=== PATIENT | female | born 1995 | race Caucasian/White ===

== ENCOUNTER → 2017-11-10 | Outpatient (CLI) | payer OTHER ==
[2017-11-10 19:02] LABS: RUBELLA IgG QUALITATIVE IMMUNE (IMMUNE)
[2017-11-10 19:03] LABS: HBsAg Prenatal NEGATIVE (NEGATIVE)
[2017-11-10 19:21] LABS: BASO # 0.1 10^3/uL (0.0-0.2); BASO % 0.8 % (0.0-1.0); EOS # 0.1 10^3/uL (0.0-0.50); EOS % 1.6 % (0.0-3.0); HEMATOCRIT 37.1 % (36.0-47.0); HEMOGLOBIN 12.2 g/dl (12.0-15.5); IMMATURE GRANULOCYTE % 0.3 % (0-3.0); LYMPH # 2.7 10^3/uL (1.5-6.5); LYMPH % 34.8 % (24.0-44.0); MEAN CORPUSCULAR HEMOGLOBIN 29.5 pg (27.0-33.0); MEAN CORPUSCULAR HGB CONC 32.9 g/dl (32.0-36.5); MEAN CORPUSCULAR VOLUME 89.6 fl (80.0-96.0); MONO # 0.6 10^3/uL (0.0-0.8); MONO % 7.3 % (0.0-5.0); NEUTROPHILS # 4.3 10^3/uL (1.8-7.7); NEUTROPHILS % 55.2 % (36.0-66.0); PLATELET COUNT, AUTOMATED 254 10^3/uL (150-450); RED BLOOD COUNT 4.14 10^6/uL (4.00-5.40); RED CELL DISTRIBUTION WIDTH 13.6 % (11.5-14.5); WHITE BLOOD COUNT 7.7 10^3/uL (4.0-10.0)
[2017-11-10 19:31] LABS: HIV 1&2 SCREEN CENTAUR NEGATIVE (NEGATIVE)
[2017-11-10 19:31] LABS: HEPATITIS C VIRUS ABY INDEX 0.1 INDEX (<0.8)
[2017-11-10 22:01] LABS: CHLAMYDIA DNA AMPLIFICATION NEGATIVE (NEGATIVE); GC DNA AMPLIFICATION NEGATIVE (NEGATIVE)
== END ==
LOC: M SMT 10:59
DX: Z36.89 Encounter for other specified antenatal screening (principal); Z3A.09 9 weeks gestation of pregnancy
CPT/HCPCS: 86762

== ENCOUNTER → 2017-11-20 | Outpatient (CLI) | payer MEDICAID | LOC: M OUTALCOH 08:07 | DX: F12.20 Cannabis dependence, uncomplicated (principal) ==

== ENCOUNTER 2017-12-12 16:00 | Outpatient (RCR) | payer MEDICAID | END 2018-01-07 | LOC: M OUTALCOH 12-15 13:00 | DX: F12.20 Cannabis dependence, uncomplicated (principal); F13.20 Sedative, hypnotic or anxiolytic dependence, uncomplicated; F17.200 Nicotine dependence, unspecified, uncomplicated ==

== ENCOUNTER → 2018-01-02 | Outpatient (CLI) | payer MEDICAID | LOC: M SMT 09:00 | DX: Z36.89 Encounter for other specified antenatal screening (principal); Z3A.00 Weeks of gestation of pregnancy not specified | CPT/HCPCS: 36415 ==

== ENCOUNTER 2018-01-09 16:00 | Outpatient (RCR) | payer MEDICAID | END 2018-02-07 | LOC: M OUTALCOH 01-16 16:00 | DX: F12.20 Cannabis dependence, uncomplicated (principal); F13.20 Sedative, hypnotic or anxiolytic dependence, uncomplicated; F17.200 Nicotine dependence, unspecified, uncomplicated ==

== ENCOUNTER → 2018-01-16 | Outpatient (CLI) | payer OTHER | LOC: M RAD 09:56 | DX: Z34.82 Encounter for supervision of other normal pregnancy, second trimester (principal); Z36.89 Encounter for other specified antenatal screening; Z3A.18 18 weeks gestation of pregnancy | CPT/HCPCS: 76811 ==

== ENCOUNTER → 2018-01-31 | Outpatient (CLI) | payer OTHER | LOC: M RAD 11:10 | DX: Z36.2 Encounter for other antenatal screening follow-up (principal); Z3A.20 20 weeks gestation of pregnancy; O43.122 Velamentous insertion of umbilical cord, second trimester | CPT/HCPCS: 76816 ==

== ENCOUNTER → 2018-03-20 | Outpatient (CLI) | payer MEDICAID, OTHER | LOC: M RAD 10:03 | DX: O99.332 Smoking (tobacco) complicating pregnancy, second trimester (principal); Z3A.27 27 weeks gestation of pregnancy | CPT/HCPCS: 76816 ==

== ENCOUNTER → 2018-03-28 | Outpatient (REF) | payer OTHER ==
[~2018-03-28] MED LIST: COLA100C5 PO; IBUP-1114 PO; MAPA500T17 PO; PRENTAB9 PO
== END ==
LOC: M LAB REF 13:41
PROVIDERS: ATTEND Advanced Practice Midwife
DX: O99.332 Smoking (tobacco) complicating pregnancy, second trimester (principal)

== ENCOUNTER → 2018-04-12 | Outpatient (CLI) | payer OTHER ==
[~2018-04-12] MED LIST changes: -MAPA500T17 PO; +MAPA500T2 PO
[2018-04-12 14:05] LABS: HEMATOCRIT 34.1 % (36.0-47.0); HEMOGLOBIN 11.1 g/dl (12.0-15.5); MEAN CORPUSCULAR HEMOGLOBIN 29.3 pg (27.0-33.0); MEAN CORPUSCULAR HGB CONC 32.6 g/dl (32.0-36.5); PLATELET COUNT, AUTOMATED 271 10^3/uL (150-450); RED BLOOD COUNT 3.79 10^6/uL (4.00-5.40); WHITE BLOOD COUNT 14.7 10^3/uL (4.0-10.0)
== END ==
LOC: M SMT 09:13
PROVIDERS: ATTEND Advanced Practice Midwife
DX: Z34.82 Encounter for supervision of other normal pregnancy, second trimester (principal); Z36.89 Encounter for other specified antenatal screening

== ENCOUNTER → 2018-04-12 | Outpatient (REF) | payer OTHER | LOC: M LAB REF 14:08 | PROVIDERS: ATTEND Advanced Practice Midwife | DX: Z36.89 Encounter for other specified antenatal screening (principal) ==

== ENCOUNTER → 2018-05-18 | Outpatient (REF) | payer OTHER, MEDICAID | LOC: M LAB REF 12:55 | PROVIDERS: ATTEND Advanced Practice Midwife | DX: O99.333 Smoking (tobacco) complicating pregnancy, third trimester (principal); Z3A.00 Weeks of gestation of pregnancy not specified ==

== ENCOUNTER 2018-06-11 12:23 | Inpatient (IN) | payer OTHER, MEDICAID ==
[~2018-06-11] VITALS: Ht 162.6 cm; Wt 92.4 kg
[2018-06-11] VITALS (11 sets, daily range): BP systolic 111–127; BP diastolic 56–70
[2018-06-11] MEDS ORDERED: BUPR15TA PO (12:45)
[2018-06-11 16:22] LABS: HEMATOCRIT 39.8 % (36.0-47.0); HEMOGLOBIN 13.1 g/dl (12.0-15.5); MEAN CORPUSCULAR HEMOGLOBIN 28.4 pg (27.0-33.0); MEAN CORPUSCULAR HGB CONC 32.9 g/dl (32.0-36.5); MEAN CORPUSCULAR VOLUME 86.3 fl (80.0-96.0); PLATELET COUNT, AUTOMATED 183 10^3/uL (150-450); RED BLOOD COUNT 4.61 10^6/uL (4.00-5.40); WHITE BLOOD COUNT 11.4 10^3/uL (4.0-10.0)
[2018-06-11] MEDS: buPROPion **SR TABLET** (ZYBAN) 150MG PO SCH (17:22)
[2018-06-11] MEDS ORDERED: LR 1,000 ML IV SCH (18:23)
--- NOTE | 2018-06-11 18:23 | HPEPDOC ---
Obstetrical History & Physical General Date of Admission Jun 11, 2018 at 15:45 Primary Care Physician: RAOUL TESFAYE CNM History of Present Illness Patient is a 23-year-old female who is a at 39.3 weeks gestation with an RADHA of 06/15/18 based off of her LMP and consistent with her 1st trimester ult rasound. She initiated care in her first trimester. her has been complicated by smoking and use of illicit drugs during . She is currently living at [facility]. She presents to L&D via ambulance with complaints of contractions. She reports active movement. She denies leaking of fluid or vaginal bleeding. Chief Complaint: Contractions, term, Active Labor Information Provided By: Patient Age: 23 : 2 Term: 1 Pre-term: 0 Abortions: 0 Livin Care Care: Good Care Dating Final EDC: Jun 15, 2018 Final EDC by: LMP LMP: Sep 08, 2017 EGA at Admission: 39.3 Antepartum Course Height (inches): 64 Pre- weight (lbs.): 197 Admission Weight (lbs.): 211 Change in Weight (lbs.): 14 Past Medical History Past Obstetrical History : Past Obstetrical History: Primgravida Gestation: 41 Type of Delivery: Spontaneous Vaginal Del. (March 2016) Sex of : Male (weighting 6 lbs 8 oz.) Complications: No Family History Significant Family History: Diabetes, Hypertension Social History Social history Patient currently living in [facility] for drug abuse. She has a history of methamphetamine abuse. She does not have custody of her youngest child. 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 Marital Status: Single Family situation: Spouse/partner home Psychosocial History: Depression (taking wellbutrin BID) * Smoker: current smoker Alcohol: Denies Drugs: prescription drugs (suboxone off the street) Abuse Violence Screening Have you been hit/kicked/slapp: No Have you been sexually assault: No Imunizations Tdap status: current Allergies Coded Allergies: Procaine (Verified Allergy, Intermediate, HIVES, 07/11/12) Soap (Unverified Allergy, Mild, 07/11/12) Lidocaine (Verified Allergy, Unknown, rash, 03/29/16) Medications Scheduled Bupropion HCl (Wellbutrin Sr) 150 Mg Tabcr, 150 MG PO BID Multivitamins/ ( 27-0.8 mg) 1 Tab Tab, 1 TAB PO DAILY Physical Examination Physical Examination GENERAL: Alert and oriented times three. BREAST: . ABDOMEN: Gravid and non-tender to touch. FETUS: Is vertex (VTX) by sterile vaginal examination (SVE), fetus is vertex (VTX) by Harry. HEART RATE: Regular rate and rhythm. LUNGS: Clear to auscultation (CTA). EXTREMITIES: No edema. No clonus. Deep tendon reflexes (DTRs) + 2. Vital Signs/I&O Vital Signs Date Time Temp Pulse Resp B/P (MAP) Pulse Ox O2 Delivery O2 Flow Rate FiO2 06/11/18 14:00 98.3 86 117/70 (86) 06/11/18 12:59 18 Laboratory Data 24H LABS Laboratory Tests 2 06/11/18 15:52: Serology Scanned Report Hepatitis B Testing 06/11/18 16:14: Nucleated Red Blood Cells % (auto) 0.0, Syphilis Serology NONREACTIVE CBC/BMP Laboratory Tests 06/11/18 16:14 Red Blood Count 4.61, Mean Corpuscular Volume 86.3, Mean Corpuscular Hemoglobin 28.4, Mean Corpuscular Hemoglobin Concent 32.9, Red Cell Distribution Width 13.7 Urine Culture: No Growth Pertinent Laboratoy Data Blood Type: O+ RBC Antibody Screen: Negative HIV: Negative Hepatitis B: Negative Hepatitis C: Negative Rapid Plasma Reagin: Nonreactive Rubella: Immune Chlamydia/Gonorrhea: Negative Group B Streptococcus: Negative Glucose Tolerance Test: 106 Anatomy Ultrasound Ultrasound Date: Mar 20, 2018 Placenta Location: Anterior Normal Anatomy: Yes (echogenic foci) Placenta Previa: No Estimated Weight (grams): 1040 Vaginal Examination Dilation: 4 cm Effacement: 80% Station: -2 Cervical Consistency: Soft Cervical Position: Anterior Presentation: Cephalic presentation Position: Vertex (occiput) Assessment Heart Rate (FHR): 130 Variability: Moderate Accelerations: Positive Decelerations: None Tocometer Contractions: Yes Frequency: other (2-6 minutes) Multi-drug resistant Organism: No history of MDRO Assessment/Plan Assessment IUP at 39.3 weeks gestation active labor GBS negative Category I FHR tracing Plan Admit to L&D. OOB ad darryn. Diet: regular. Group B Streptococcus (GBS) negative. Labs and intravenous (IV) per unit protocol. Anticipate cervical change and . Patient desires IV pain medication as she is unable to have an epidural due to allergy to lidocaine. RAOUL TESFAYE CNM Jun 11, 2018 18:23
[2018-06-11] MEDS ORDERED: OXYTOCIN DRIP 30 UNITS in APPROPRIATE DILUENT 1 EA IV SCH (18:30)
[2018-06-11] MEDS ORDERED: BUTORPHANOL 2 MG/ML INJ (J0595) IV ONE (20:45)
[2018-06-11] MEDS ORDERED: PROMETHAZINE INJ 25 MG/ML VIAL (J2550) IV ONE (20:45)
--- NOTE | 2018-06-11 21:36 | IPNPDOC ---
Obstetrical Progress Note Date of Service Jun 11, 2018 Subjective Patient reports she desires to have IV pain medication. Objective Vital Signs Date Time Temp Pulse Resp B/P (MAP) Pulse Ox O2 Delivery O2 Flow Rate FiO2 06/11/18 20:51 20 06/11/18 14:00 98.3 86 117/70 (86) Assessment Heart Rate (FHR): 135 Variability: Moderate Accelerations: Positive Decelerations: None Heart Rate Tracing: Category I Tocometer Contractions: Yes Frequency: regular Sterile Vaginal Examination Dilation: 4 cm Effacement (%): 80% Station: -2 Cervical Consistency: Soft Cervical Position: Anterior Postion/Presentation: Cephalic presentation Assessment and Plan Status: Reassuring Group B Streptococcus: Negative Anticipate: Vaginal Delivery Additional Comments AROM to a moderate amount of meconium stained fluid. Pitocin at 4 mu/min currently. RAOUL TESFAYE CNM Jun 11, 2018 21:36
[2018-06-11] MEDS ORDERED: MORPHINE 10 MG/ML 1ML VIAL (J2270) IM ONE (21:45)
[2018-06-11] MEDS ORDERED: MORPHINE 10 MG/ML 1ML VIAL (J2270) IV ONE (22:00)
[2018-06-11] MEDS ORDERED: MORPHINE 10 MG/ML 1ML VIAL (J2270) SC ONE (23:15)
--- NOTE | 2018-06-11 23:57 | IPNPDOC ---
Obstetrical Progress Note Date of Service Jun 11, 2018 Subjective Patient requesting more IV pain medication. Objective Vital Signs Date Time Temp Pulse Resp B/P (MAP) Pulse Ox O2 Delivery O2 Flow Rate FiO2 06/11/18 21:55 20 06/11/18 14:00 98.3 86 117/70 (86) Assessment Heart Rate (FHR): 115 Variability: Minimal to moderate Accelerations: Positive Decelerations: None Heart Rate Tracing: Category I Tocometer Contractions: Yes Frequency: regular Sterile Vaginal Examination Dilation: 5 cm (5-6 cm) Effacement (%): 90% Cervical Consistency: Soft Cervical Position: Anterior Postion/Presentation: Cephalic presentation Assessment and Plan Status: Reassuring Group B Streptococcus: Negative Anticipate: Vaginal Delivery Additional Comments Patient is unable to have an epidural due to anaphylaxis to lidocaine. She has received Stadol 2mg with Phenergan 12.5 mg via IV that she reports did nothing for her pain. She received 5 mg of IV morphine that has helped her pain slightly but patient isn't tolerating labor well. She has a history over the last year of using illicit drugs with the main drug of choice being Suboxone, which she bought off the street. Her IV Pitocin was decreased to 2 mu/min, down from 6 mu/min. A order was placed for SQ morphine. RAOUL TESFAYE CNM Jun 11, 2018 23:57
[2018-06-12] VITALS (26 sets, daily range): BP systolic 98–154; BP diastolic 54–82
[2018-06-12] MEDS ORDERED: MORPHINE 10 MG/ML 1ML VIAL (J2270) IV PRN (00:45)
--- NOTE | 2018-06-12 02:41 | IPNPDOC ---
Obstetrical Progress Note Date of Service Jun 12, 2018 Subjective Patient reports she is too tired and in too much pain to continue. She states the IV pain medication is not working for her. Her significant other is very upset and requesting that we do something more for her. Objective Vital Signs Date Time Temp Pulse Resp B/P (MAP) Pulse Ox O2 Delivery O2 Flow Rate FiO2 06/12/18 00:59 18 06/11/18 14:00 98.3 86 117/70 (86) Assessment Heart Rate (FHR): 120 Variability: Moderate Accelerations: Positive Decelerations: None Heart Rate Tracing: Category I Tocometer Contractions: Yes Frequency: regular Sterile Vaginal Examination Dilation: 5 cm Effacement (%): 70% Station: -2 Cervical Consistency: Soft Cervical Position: Anterior Postion/Presentation: Cephalic presentation Assessment and Plan Status: Reassuring Group B Streptococcus: Negative Additional Comments Options were reviewed with patient and significant other. She requests if she is unable to get an epidural or something more so she can sleep she want a section. Dr. Camacho called and notified. Reviewed patient's case with him. Reviewed that she was seen by anesthesia a few years ago with her last and was told she was not a candidate for an epidural. She did not receive an epidural with her last due to this. Reviewed that patient is not tolerating labor and desires to know her options. He will be come to access the patient. Significant other and patient kept informed on progress for pain management. RAOUL TESFAYE CNM Jun 12, 2018 02:41
[2018-06-12] MEDS ORDERED: FENTANYL 2MCG/ML ROPIVACAINE 0.2% IN 0.9% NACL 100ML IVBAG As Ordered ONE (02:42)
[2018-06-12] MEDS ORDERED: EPIDURAL COMMENT XX SCH (04:00)
[2018-06-12] MEDS ORDERED: diphenhydrAMINE INJ 50MG/ML VIAL (J1200) IV PRN (04:00)
[2018-06-12] MEDS ORDERED: ONDANSETRON 4MG/2ML VIAL (J2405) IV PRN (04:00)
[2018-06-12] MEDS ORDERED: EPIDURAL/PCA KEYS XX PRN (04:00)
[2018-06-12] MEDS ORDERED: FENTANYL/ROPIVACAINE/NACL BAG 100 ML EPIDURAL SCH (04:00)
[2018-06-12] MEDS ORDERED: REFRIGERATOR IV KEYS XX PRN (04:00)
[2018-06-12] MEDS ORDERED: ePHEDrine SULFATE 25 MG/5 ML(5MG/ML) SYRINGE IV PRN (04:00)
[2018-06-12] MEDS ORDERED: LACTATED RINGER'S 1000 ML IV PRN (04:00)
[2018-06-12] MEDS ORDERED: NALOXONE INJ 0.4 MG/1 ML VIAL (J2310) IV PRN (04:00)
--- NOTE | 2018-06-12 04:27 | IPNPDOC ---
Obstetrical Progress Note Date of Service Jun 12, [address] Camacho in to see patient and discuss her history. All medical records available at [facility] reviewed. AFter discussion with patient and Dr. Camacho has concluded that the patient is not allergic to lidocaine but she is allergic to Novocaine. Patient desires to proceed with an epidural. Objective Vital Signs Date Time Temp Pulse Resp B/P (MAP) Pulse Ox O2 Delivery O2 Flow Rate FiO2 06/12/18 00:59 18 06/11/18 14:00 98.3 86 117/70 (86) Assessment Heart Rate (FHR): 120 Variability: Moderate Accelerations: Positive Decelerations: None Heart Rate Tracing: Category I Assessment and Plan Additional Comments Dr. Mcmillan was notified of patient's desire for a section if she was unable to get an epidural. Patient able to get an epidural and it was reviewed with Dr. Mcmillan. Patient does not have an allergy to lidocaine as she was successfully able to get an epidural without any side effects. RAOUL TESFAYE CNM Jun 12, 2018 04:27
--- NOTE | 2018-06-12 06:45 | IPNPDOC ---
Obstetrical Progress Note Date of Service Jun 12, 2018 Subjective Patient reports she is feeling rectal pressure. She is comfortable with her epidural. Objective Vital Signs Date Time Temp Pulse Resp B/P (MAP) Pulse Ox O2 Delivery O2 Flow Rate FiO2 06/12/18 00:59 18 06/11/18 14:00 98.3 86 117/70 (86) Assessment Heart Rate (FHR): 125 Variability: Moderate Accelerations: Positive Decelerations: None Heart Rate Tracing: Category I Tocometer Contractions: Yes Frequency: regular, every 2-5 min. Sterile Vaginal Examination Dilation: 8 cm Effacement (%): 90% Station: 0 Cervical Consistency: Soft Cervical Position: Anterior Postion/Presentation: Cephalic presentation Assessment and Plan Weeks & Days 39.4 weeks gestation Status: Reassuring Group B Streptococcus: Negative Anticipate: Vaginal Delivery Additional Comments IV Pitocin has been turned back on and it is a t 6 mu/min. RAOUL TESFAYE CNM Jun 12, 2018 06:45
[2018-06-12] MEDS: buPROPion **SR TABLET** (ZYBAN) 150MG PO SCH ×2 (08:49→17:01)
[2018-06-12] MEDS ORDERED: OXYTOCIN DRIP 30 UNITS in APPROPRIATE DILUENT 1 EA IV SCH (09:03)
[2018-06-12] MEDS ORDERED: DOCUSATE SODIUM 100 MG CAP PO PRN (09:15)
[2018-06-12] MEDS ORDERED: DIBUCAINE 1% OINTMENT 30GM TOP PRN (09:15)
[2018-06-12] MEDS ORDERED: MEASLES,MUMPS,RUBELLA VACCINE INJ (MMR-II) (90707) SC SCH (09:15)
[2018-06-12] MEDS ORDERED: ACETAMINOPHEN 500 MG TAB PO PRN (09:15)
[2018-06-12] MEDS ORDERED: METHYLERGONOVINE MALEATE 0.2 MG TAB PO PRN (09:15)
--- NOTE | 2018-06-12 09:17 | DNPDOC ---
[facility] Delivery Note Delivery Note DATE OF DELIVERY: 06/12/18 at 0722 PREDELIVERY DIAGNOSIS: 39-4/7 weeks' gestation and labor. POST DELIVERY DIAGNOSIS: Delivered. PROCEDURE: Spontaneous vaginal delivery. CUTTING TORCH OPERATOR: Raoul Eugene CNM, GABBY ANESTHESIA: epidural ESTIMATED BLOOD LOSS: 350 mL. FINDINGS: 6 pounds 9 ounces; 2980 grams; female , Score 8/9, nuchal cord times 1 loose. DELIVERY SUMMARY: Patient is a 23-year-old female who is now a at 39.4 weeks gestation. She presented to L&D in active labor. The patient received IV Pitocin to augment her labor. She received an epidural for pain management. The patient progressed to fully dilated at 0717 and pushed to a living female in the RAY position with restitution to ROT at 0722. A loose nuchal cord was noted. The anterior shoulder delivered with ease and the corpus immediately followed. The baby was placed [id number] active and crying with stimulation. The cord was clamped x2 after 3 minutes and cut by the FOB. A 3-vessel cord was noted. The placenta delivered spontaneously and intact at 0729. Uterine hemostasis was achieved via rapid infusion of IV Pitocin and fundal massage. The vagina and perineum were inspected and found to be intact. Mom plans to formula feed her . They are naming her "Beckie." Both mom and baby are in stable condition. RAOUL EUGENE CNM Jun 12, 2018 09:17
[2018-06-12] MEDS: RHOGAM 300 MCG (1500 IU) INJ (J2790) IM SCH ×2 (12:06→12:08)
[2018-06-12] MEDS: IBUPROFEN 800 MG TAB PO PRN (13:27)
--- NOTE | 2018-06-13 06:28 | NUR ---
Day 1 Status post , uncomplicated Subjective Pain is well controlled. Lochia decreasing and minimal. Voiding spontaneously. Tolerating a regular diet. Ambulating without any assistance. Denies any subjective fever/chills/nausea/vomiting/headache/visual changes/shortness of breath/chest pain. Bottle feeding. Objective Vitals: Normotensive, normal heart rate, afebrile, adequate urine output. Heart: regular, rate, and rhythm. no murmurs/gallops/rubs Lungs: clear to auscultation bilaterally, no wheezes/crackles/rales/ronchi Abd: soft, nontender, nondistended, uterine fundus is 2cm below umbilicus and firm Ext: no significant edema, nontender, negative Vianca's bilaterally. Assessment/Plan: day 1. Recovering well. Hemodynamically stable, afebrile, good pain control. -Routine care -Discharge to home later today or tomorrow -Routine infectious, fever, pain, and bleeding precautions reviewed Dr. Gus Mcmillan, Edgar.O., F.A.C.O.G.
[2018-06-13 06:47] VITALS: BP 108/59
[2018-06-13] MEDS: IBUPROFEN 800 MG TAB PO PRN (08:24)
[2018-06-13] MEDS: buPROPion **SR TABLET** (ZYBAN) 150MG PO SCH (08:24)
[2018-06-13] MEDS ORDERED: PRENATAL VITAMINS CHEWABLE TABLET PO SCH (09:00)
[2018-06-13] MEDS ORDERED: MAPA500T2 PO (13:12)
[2018-06-13] MEDS ORDERED: IBUP-1114 PO (13:12)
== END 2018-06-13 14:45 | disposition home or self-care (01) | DRG 560 ==
LOC: M LDO 12:23 → M LDI 15:45 → M OBS 06-12 12:30
PROVIDERS: ADMIT Advanced Practice Midwife; ATTEND Advanced Practice Midwife
PROC: 10E0XZZ Delivery of Products of Conception, External Approach (ICD-10-PCS; principal; 2018-06-12)
DX: O99.334 Smoking (tobacco) complicating childbirth (principal); F17.200 Nicotine dependence, unspecified, uncomplicated; Z3A.39 39 weeks gestation of pregnancy; O69.82X0 Labor and delivery complicated by other cord entanglement, without compression, not applicable or unspecified; F11.90 Opioid use, unspecified, uncomplicated; O99.324 Drug use complicating childbirth

== ENCOUNTER 2019-10-02 10:12 | Emergency (ER) | payer OTHER, MEDICAID ==
[~2019-10-02] VITALS: Ht 162.6 cm; Wt 90.0 kg
[~2019-10-02 10:12] MED LIST changes: +BUPR15TA PO
[2019-10-02] MEDS ORDERED: BUPR8SUB PO (10:19)
[2019-10-02 10:44] LABS: BASO # 0.1 10^3/uL (0.0-0.2); BASO % 0.6 % (0.0-1.0); EOS # 0.1 10^3/uL (0.0-0.5); EOS % 1.2 % (0.0-3.0); HEMATOCRIT 37.3 % (36.0-47.0); HEMOGLOBIN 11.9 g/dl (12.0-15.5); LYMPH # 2.2 10^3/uL (1.5-5.0); LYMPH % 26.4 % (24.0-44.0); MEAN CORPUSCULAR HEMOGLOBIN 27.5 pg (27.0-33.0); MEAN CORPUSCULAR HGB CONC 31.9 g/dl (32.0-36.5); MEAN CORPUSCULAR VOLUME 86.1 fl (80.0-96.0); MONO # 0.6 10^3/uL (0.0-0.8); MONO % 7.4 % (0.0-5.0); NEUTROPHILS # 5.3 10^3/uL (1.5-8.5); NEUTROPHILS % 64.2 % (36.0-66.0); PLATELET COUNT, AUTOMATED 289 10^3/uL (150-450); RED BLOOD COUNT 4.33 10^6/uL (4.00-5.40); WHITE BLOOD COUNT 8.3 10^3/uL (4.0-10.0)
[2019-10-02] MEDS ORDERED: METOCLOPRAMIDE 10 MG TAB PO ONE (10:45)
[2019-10-02 11:06] LABS: ALBUMIN 3.8 GM/DL (3.2-5.2); ALT/SGPT 27 U/L (12-78); BILIRUBIN,DIRECT < 0.1 MG/DL (0.0-0.2); BILIRUBIN,TOTAL 0.3 MG/DL (0.2-1.0); LIPASE 48 U/L (73-393); TOTAL PROTEIN 7.4 GM/DL (6.4-8.2)
[2019-10-02 12:13] LABS: HCG, SERUM QUANTITATIVE 22853 MIU/ML
[2019-10-02 13:17] VITALS: BP 109/61
[2019-10-02] MEDS ORDERED: DICL10TA PO (13:58)
--- NOTE | 2019-10-02 15:15 | REP ---
FIRST TRIMESTER ULTRASOUND: Real-time sonographic evaluation of the gravid uterus is performed. There is a single living intrauterine gestation. The estimated gestational age is 6 weeks 0 days based on a crown-rump length of 4 mm, EDC 05/27/2020. heart rate 117 beats per minute. There is no subchorionic hemorrhage. Cystic structure left ovary measures 1.5 cm and may represent a corpus luteum. There is no torsion of either ovary with duplex Doppler evaluation. Electronically Signed by Lawrence Tom MD 10/02/2019 07:38 P
== END 2019-10-02 14:07 | disposition home or self-care (01) ==
LOC: M ED 10:12
DX: O21.9 Vomiting of pregnancy, unspecified (principal); O99.321 Drug use complicating pregnancy, first trimester; F11.21 Opioid dependence, in remission; O99.330 Smoking (tobacco) complicating pregnancy, unspecified trimester; F17.200 Nicotine dependence, unspecified, uncomplicated; O34.80 Maternal care for other abnormalities of pelvic organs, unspecified trimester; Z3A.01 Less than 8 weeks gestation of pregnancy

== ENCOUNTER → 2019-12-30 | Outpatient (CLI) | payer OTHER ==
[~2019-12-30] MED LIST changes: +BUPR8SUB PO; +DICL10TA PO
--- NOTE | 2020-01-10 10:02 | REP ---
OBSTETRIC SONOGRAPHY HISTORY: Supervision of for anatomy. FINDINGS: Scanning through the gravid uterus demonstrates a single living intrauterine fetus in a cephalic lie. motion is observed and heart rate is recorded at 131 beats per minute. A posterior grade 0 placenta is seen without evidence of previa or abruption. Amniotic fluid is subjectively normal. Closed cervical length is measured transabdominally at 3.4 cm. No extrauterine abnormality is observed. There is a right-sided right choroid plexus cysts measuring 3.9 x 3.5 mm in diameter. No other anatomic abnormality. The following anatomic structures are identified and felt to be unremarkable: cranium, cavum septum pellucidum, falx and cerebral ventricles, cerebellum and cisterna magna, face and profile, face, nose and lips, lungs, four chamber heart with left and right ventricular outflow tract views, diaphragm, left-sided stomach, abdominal wall, cord insertion, kidneys and urinary bladder, spine, upper and lower extremities, three-vessel cord. BIOMETRY CHART: BPD 4.3 cm 19 weeks 0 days Head circumference 16.6 cm 19 weeks 1 day Abdominal circumference 14.6 cm 19 weeks 6 days Femur length 3.4 cm 20 weeks 5 days Humeral length 3.1 cm 20 weeks 2 days HC/AC ratio 1.14 Normal Cephalic index 0.70 Normal Estimated weight 333 grams, 0 pounds 11 ounces. IMPRESSION: Viable single intrauterine gestation at 19 weeks 6 days by todays composite sonographic criteria. Estimated date of delivery (RADHA) by todays sonography 12/17/2020. There is one small right-sided choroid plexus cyst 3.9 mm in greatest diameter. anatomic survey is otherwise complete. [facility]
== END ==
LOC: M RAD 08:40
PROVIDERS: ATTEND Advanced Practice Midwife
DX: Z34.82 Encounter for supervision of other normal pregnancy, second trimester (principal); Z3A.19 19 weeks gestation of pregnancy

== ENCOUNTER → 2020-01-21 | Outpatient (CLI) | payer OTHER ==
[2020-01-21 15:16] LABS: HEMATOCRIT 34.2 % (36.0-47.0); MEAN CORPUSCULAR HEMOGLOBIN 28.3 pg (27.0-33.0); MEAN CORPUSCULAR HGB CONC 32.2 g/dl (32.0-36.5); MEAN CORPUSCULAR VOLUME 87.9 fl (80.0-96.0); PLATELET COUNT, AUTOMATED 242 10^3/uL (150-450); RED BLOOD COUNT 3.89 10^6/uL (4.00-5.40); WHITE BLOOD COUNT 7.2 10^3/uL (4.0-10.0)
[2020-01-21 15:50] LABS: HCG, SERUM QUALITATIVE POSITIVE (NEGATIVE)
[2020-01-21 16:57] LABS: ALBUMIN 3.2 GM/DL (3.2-5.2); ALT/SGPT 16 U/L (12-78); BILIRUBIN,TOTAL 0.3 MG/DL (0.2-1.0); BLOOD UREA NITROGEN 5 MG/DL (7-18); CALCIUM LEVEL 9.2 MG/DL (8.5-10.1); CARBON DIOXIDE LEVEL 24 MEQ/L (21-32); CHLORIDE LEVEL 104 MEQ/L (98-107); CREATININE FOR GFR 0.41 MG/DL (0.55-1.30); GLOMERULAR FILTRATION RATE > 60.0 (>60); GLUCOSE, FASTING 83 MG/DL (70-100); HEPATITIS B SURFACE ANTIGEN NEGATIVE (NEGATIVE); HEPATITIS C VIRUS ABY INDEX 0.1 INDEX (<0.8); HIV 1&2 SCREEN CENTAUR NEGATIVE (NEGATIVE); POTASSIUM SERUM 4.4 MEQ/L (3.5-5.1); SODIUM LEVEL 135 MEQ/L (136-145)
== END ==
LOC: M PLALAB 12:34
PROVIDERS: ATTEND Family Medicine
DX: F11.10 Opioid abuse, uncomplicated (principal)

== ENCOUNTER → 2020-03-09 | Outpatient (REF) | payer OTHER ==
[2020-03-09 15:34] LABS: HEMOGLOBIN 10.1 g/dl (12.0-15.5); MEAN CORPUSCULAR HEMOGLOBIN 30.6 pg (27.0-33.0); MEAN CORPUSCULAR HGB CONC 32.6 g/dl (32.0-36.5); MEAN CORPUSCULAR VOLUME 93.9 fl (80.0-96.0); PLATELET COUNT, AUTOMATED 193 10^3/uL (150-450); WHITE BLOOD COUNT 8.6 10^3/uL (4.0-10.0)
== END ==
LOC: M PLALAB 11:36
PROVIDERS: ATTEND Obstetrics & Gynecology
DX: O99.332 Smoking (tobacco) complicating pregnancy, second trimester (principal); Z3A.00 Weeks of gestation of pregnancy not specified; F17.200 Nicotine dependence, unspecified, uncomplicated

== ENCOUNTER → 2020-04-23 | Outpatient (REF) | payer OTHER | LOC: M SFHCWAGY 13:27 | PROVIDERS: ATTEND Advanced Practice Midwife | DX: O99.333 Smoking (tobacco) complicating pregnancy, third trimester (principal) ==

== ENCOUNTER 2020-05-23 07:09 | Inpatient (IN) | payer OTHER ==
[2020-05-23] VITALS (34 sets, daily range): BP systolic 91–146; BP diastolic 51–100
[~2020-05-23] VITALS: Ht 162.6 cm; Wt 87.3 kg
--- OUTSIDE RECORDS SUMMARY | 2020-05-23 07:13 | CCD ---
Author Author [facility] Organization [facility] Address Unknown Phone Unavailable Care Team Providers Care Cream Separator Operator Name Role Phone Tarsha Enciso Unavailable PROBLEMS Type Condition ICD9-CM Code FWV27-OT Code Onset Dates Condition S tatus SNOMED Code Notes Problem Supervision of other normal Z34.80 Ac tive 496280683 Problem Iron deficiency anemia D50.9 Active 16817915 Problem Supervision of other normal Z34.80 Ac tive 335465243 ALLERGIES No Known Allergies ENCOUNTERS from 1995 to 2020-03-10 Encounter Location Date Provider Diagnosis [facility] [address] [place] [phone] Feb, Tarsha Enciso Iron deficiency anem ia D50.9 IMMUNIZATIONS Vaccine Route Administration Date Status Influenza (6mo & up) Fluzone IM Intramuscular Feb 18, 2020 Pe nding SOCIAL HISTORY Tobacco Use: Social History Observation Description Date Details (start date - stop date) Current Smoker Sex Assigned At : Social History Observation Description Sex Assigned At Unknown Alcohol Screening: Question Answer Notes Did you have a drink containing alcohol in the past year? No Points 0 Interpretation Negative Tobacco Use: Question Answer Notes Are you a: current smoker Are you a: current smoker Patient counseled on the dangers of tobacco use and urged to quit: 01/21/2020 Patient counseled on the dangers of tobacco use and urged to quit: 10/23/2019 How many cigarettes a day do you smoke? 6-10 How many cigarettes a day do you smoke? 6-10 Are you interested in quitting? Ready to quit Are you interested in quitting? Not ready to quit Counseled the patient on smoking effects, education provided 10/23/2019 REASON FOR REFERRAL No Information VITAL SIGNS No information MEDICATIONS Medication SIG (Take, Route, Frequency, Duration) Notes Start Da te End Date Status Methadone HCl 40 MG 45 ml as needed Orally Once a day Active 27-1 MG 1 tablet Orally Once a day Active Ferrous Sulfate 325 (65 Fe) MG 1 tablet Orally Once a day for 30 day(s) Feb, Active Ondansetron 4 MG 1 tablet on the tongue and a llow to dissolve Orally Once a day for 90 days Jan, Active PROCEDURES No Information RESULTS No Results REASON FOR VISIT No Information MEDICAL (GENERAL) HISTORY Type Description Date Medical History History of Opiod use Medical History recovering addict Herion, Meth Surgical History none Hospitalization History Childbirth Goals Section No Information Health Concerns No Information MEDICAL EQUIPMENT No Information MENTAL STATUS No Information FUNCTIONAL STATUS No Information ASSESSMENTS Encounter Date Diagnosis Assessment Notes Treatment Notes Treatm ent Clinical Notes Feb, Iron deficiency anemia (ICD-10 - D50.9) PLAN OF TREATMENT Medication Medication Name Sig Start Date Stop Date Ondansetron 4 MG 1 tablet on the tongue and a llow to dissolve Orally Once a day for 90 days Jan, Ferrous Sulfate 325 (65 Fe) MG 1 tablet Orally Once a day fo r 30 day(s) Feb, Insurance Providers Payer Name Payer Address Payer Phone Insured Name Patient Relati onship to Insured Coverage Start Date Coverage End Date [facility] [employer] [address] [facility] [id number] GRISEL LOZA self
--- OUTSIDE RECORDS SUMMARY | 2020-05-23 07:13 | CCD ---
Author Author [facility] Organization [facility] Address Unknown Phone Unavailable Care Team Providers Care Traffic Controller Cable Name Role Phone Mcmillan, Gus Unavailable PROBLEMS Type Condition ICD9-CM Code CHS30-ML Code Onset Dates Condition S tatus SNOMED Code Notes Problem Supervision of other normal Z34.80 Ac tive 197687914 Problem Iron deficiency anemia D50.9 Active 54092208 Problem Supervision of other normal Z34.80 Ac tive 090993197 ALLERGIES No Known Allergies ENCOUNTERS from 1995 to 2020-04-15 Encounter Location Date Provider Diagnosis [facility] [address] [place] [phone] Mar, Gus Mcmillan Smoking (tobacco) co mplicating , third trimester O99.333 ; 33 weeks gestation of Z3A.33 ; Cigarette smoker F17.210 and Encounter for administration of vaccine Z23 IMMUNIZATIONS Vaccine Route Administration Date Status TDAP 0.5mL (Boostrix) IM Intramuscular Apr 06, 2020 Administe red Influenza (6mo & up) Fluzone IM Intramuscular [...] REASON FOR REFERRAL No Information VITAL SIGNS Weight 185.2 lbs Mar, Weight-kg 84.01 kg Mar, Height 64 in Mar, BMI 31.79 kg/m2 Mar, Blood pressure systolic 120 mm Hg Mar, Blood pressure diastolic 60 mm Hg Mar, MEDICATIONS Medication SIG (Take, Route, Frequency, Duration) Notes Start Da te End Date Status Ferrous Sulfate 325 (65 Fe) MG 1 tablet Orally Once a day for 30 day(s) Feb, Not-Taking Ondansetron 4 MG 1 tablet on the tongue and a llow to dissolve Orally Once a day for 90 days Jan, Active Methadone HCl 10 MG/ML 5.5 mL Orally Once a day Active 27-1 MG 1 tablet Orally Once a day Active PROCEDURES from 1995 to 2020-04-15 Procedure Date Ordered Result Body Site Immunization: Boostrix 0.5mL IM (TDAP) 2020-04-06 N/A RESULTS No Results REASON FOR VISIT 4WK PN MEDICAL (GENERAL) HISTORY Type Description Date Medical History History of Opiod use Medical History recovering addict Herion, Meth Surgical History none Hospitalization History Childbirth Goals Section No Information Health Concerns No Information MEDICAL EQUIPMENT No Information MENTAL STATUS No Information FUNCTIONAL STATUS No Information ASSESSMENTS Encounter Date Diagnosis Assessment Notes Treatment Notes Treatm ent Clinical Notes Mar, Smoking (tobacco) complicati ng , third trimester (ICD-10 - O99.333) Mar, 33 weeks gestation of (ICD-10 - Z3A.33 ) Mar, Cigarette smoker (ICD-10 - F17.210) Mar, Encounter for administration of vaccine (ICD-10 - Z23) PLAN OF TREATMENT Next Appt Details 2 Weeks Reason:follow-up Provider Name:Nadia Eugene, 2020-04-23 11:00:00 AM, [address] [place], [phone], Follow Up:2 Weeksfollow-up Insurance Providers Payer Name Payer Address Payer Phone Insured Name Patient Relati onship to Insured Coverage Start Date Coverage End Date [facility] [employer] [facility] [address] [facility] [id number] [phone] GRISEL LOZA self
--- OUTSIDE RECORDS SUMMARY | 2020-05-23 07:13 | CCD ---
Author Author [facility] Organization [facility] Address Unknown Phone Unavailable Care Team Providers Care Avionics Systems Integration Specialist Name Role Phone Darcy Jimenez Unavailable PROBLEMS Type Condition ICD9-CM Code [id number] Code Onset Dates Condition S tatus SNOMED Code Notes Problem Iron deficiency anemia D50.9 Active 49525400 Problem Supervision of other normal Z34.80 Ac tive 066825505 Problem Dysmenorrhea 625.3 Active 444334627 Problem Supervision of other normal Z34.80 Ac tive 363026868 Problem Supervision of other normal Z34.80 Ac tive 447428387 ALLERGIES Allergen (clinical drug ingredient) Drug/Non Drug Allergy do cumented on EMR Reaction Allergy Type Onset Date Status SOAPS AND CLEANSERS Rash Non Drug Allergy Active epinephrine Anaphylaxis Non Drug Allergy Active LOCAL AND GENERAL ANESTHIA Anaphylaxis/reaction to fen tanyl Non Drug Allergy Active NOVACAINE/can have carbicaine Anaphylaxis Non Drug Allergy Active ENCOUNTERS from 1995 to 2020-05-07 Encounter Location Date Provider Diagnosis [facility] [address] [place] [phone] Apr, Darcy Jimenez 36 weeks gestatio n of Z3A.36 and Streptococcus B carrier state complicating O99.820 IMMUNIZATIONS Vaccine Route Administration Date Status TDAP [...] FOR REFERRAL No Information VITAL SIGNS Weight 192 lbs Apr, Weight-kg 87.09 kg Apr, Height 64 in Apr, BMI 32.957 kg/m2 Apr, Blood pressure systolic 112 mm Hg Apr, Blood pressure diastolic 62 mm Hg Apr, MEDICATIONS Medication SIG (Take, Route, Frequency, Duration) Notes Start Da te End Date Status Depo-Provera 150 MG/ML 150ml. Intramuscular every 12 wks. for 30 day( s) Not-Taking 27-1 MG 1 tablet Orally Once a day Active Methadone HCl 10 MG/ML 5.5 mL Orally Once a day Not-Taking Ondansetron 4 MG 1 tablet on the tongue and a llow to dissolve Orally Once a day for 90 days Jan, Active Ferrous Sulfate 325 (65 Fe) MG 1 tablet Orally Once a day for 30 day(s) Feb, Not-Taking 27-1 MG 1 tablet Orally Once a day Not-Taking Methadone HCl 40 MG 55mg Orally Once a day Active PROCEDURES No Information RESULTS No Results REASON FOR VISIT 1wk pn MEDICAL (GENERAL) HISTORY Type Description Date Medical History History of Opiod use Medical History recovering addict Herion, Meth Surgical History none Hospitalization History Childbirth Goals Section No Information Health Concerns No Information MEDICAL EQUIPMENT No Information MENTAL STATUS No Information FUNCTIONAL STATUS No Information ASSESSMENTS Encounter Date Diagnosis Assessment Notes Treatment Notes Treatm ent Clinical Notes Apr, 36 weeks gestation of (ICD-10 - Z3A.36 ) Apr, Streptococcus B carrier stat e complicating (ICD-10 - O99.820) PLAN OF TREATMENT Next Appt Details 1 Week Reason:return ob Provider Name:Darcy Jimenez, 2020-05-13 02:40:00 PM, [address] [place], [address], Follow Up:1 Weekreturn ob Insurance Providers Payer Name Payer Address Payer Phone Insured Name Patient Relati onship to Insured Coverage Start Date Coverage End Date [facility] COMMUNITY PLAN [facility] [address] [facility] [address] [phone] GRISEL LOZA self
--- OUTSIDE RECORDS SUMMARY | 2020-05-23 07:13 | CCD ---
Author Author [facility] Organization [facility] Address Unknown Phone Unavailable Care Team Providers Care Missile And Missile Checkout Technician Name Role Phone Tarsha Enciso Unavailable PROBLEMS Type Condition ICD9-CM Code WEJ29-SM Code Onset Dates Condition S tatus SNOMED Code Notes Problem Supervision of other normal Z34.80 Ac tive 449875339 Problem Iron deficiency anemia D50.9 Active 20304295 Problem Supervision of other normal Z34.80 Ac tive 025234092 ALLERGIES No Known Allergies ENCOUNTERS from 1995 to 2020-03-10 Encounter Location Date Provider Diagnosis [facility] [address] [phone] Jan, Tarsha Enciso 22 weeks gestation o f Z3A.22 ; Drug use affecting in second trimester O99.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 and Cigarette smoker F17.210 IMMUNIZATIONS Vaccine Route Administration Date Status Influenza [...] FOR REFERRAL No Information VITAL SIGNS Weight 185 lbs Jan, Height 64 in Jan, BMI 31.755 kg/m2 Jan, Blood pressure systolic 100 mm Hg Jan, Blood pressure diastolic 54 mm Hg Jan, MEDICATIONS Medication SIG (Take, Route, Frequency, Duration) [...] days Jan, Active PROCEDURES No Information RESULTS Component Value Reference Range CBC - Complete Blood Count Reviewed date:03/09/2020 16:02:37 Interpretation: Performing Lab:[facility] LABORATORY [address] [facility] [address] , ,[place] [address] WHITE BLOOD COUNT 8.6 4.0-10.0 RED BLOOD COUNT 3.30 4.00-5.40 HEMOGLOBIN 10.1 12.0-15.5 HEMATOCRIT 31.0 36.0-47.0 MEAN CORPUSCULAR VOLUME 93.9 80.0-96.0 MEAN CORPUSCULAR HEMOGLOBIN 30.6 27.0-33.0 MEAN CORPUSCULAR HGB CONC 32.6 32.0-36.5 RED CELL DISTRIBUTION WIDTH 14.5 11.5-14.5 PLATELET COUNT, AUTOMATED 193 150-450 Glucose Challenge Test 1 Hour Reviewed date:03/09/2020 16:02:44 Interpretation: Performing Lab:[facility] LABORATORY [address] [facility] [address] , ,[facility] GLUCOSE CHALLENGE TEST 1 HOUR 103 LESS THAN 140 REASON FOR VISIT 4 WK PN MEDICAL (GENERAL) HISTORY Type Description Date Medical History History of Opiod use Medical History recovering addict Herion, Meth Surgical History none Hospitalization History Childbirth Goals Section No Information Health Concerns No Information MEDICAL EQUIPMENT No Information MENTAL STATUS No Information FUNCTIONAL STATUS No Information ASSESSMENTS Encounter Date Diagnosis Assessment Notes Treatment Notes Treatm ent Clinical Notes Jan, 22 weeks gestation of (ICD-10 - Z3A.22 ) Jan, Drug use affecting in second trimester (ICD-10 - O99.322) Jan, Cigarette smoker (ICD-10 - F17.210) PLAN OF TREATMENT Medication Medication Name Sig Start Date Stop Date Ondansetron 4 MG 1 tablet on the tongue and a llow to dissolve Orally Once a day for 90 days Jan, Ferrous Sulfate 325 (65 Fe) MG 1 tablet Orally Once a day fo r 30 day(s) Feb, Next Appt Details 4 Weeks Reason:PN Follow Up:4 WeeksPN Insurance Providers Payer Name Payer Address Payer Phone Insured Name Patient Relati onship to Insured Coverage Start Date Coverage End Date [facility] COMMUN[facility] PLAN [facility] [address] [facility] [phone] GRISEL LOZA self
--- OUTSIDE RECORDS SUMMARY | 2020-05-23 07:13 | CCD ---
Author Author [facility] Organization [facility] Address Unknown Phone Unavailable Care Team Providers Care Supervisor Laboratory Animal Facility Name Role Phone Nadia Eugene Unavailable PROBLEMS Type Condition ICD9-CM Code URN09-PA Code Onset Dates Condition S tatus SNOMED Code Notes Problem Supervision of other normal Z34.80 Ac tive 514345976 Problem Iron deficiency anemia D50.9 Active 70674807 Problem Supervision of other normal Z34.80 Ac tive 115725789 ALLERGIES No Known Allergies ENCOUNTERS from 1995 to 2020-04-29 Encounter Location Date Provider Diagnosis [facility] [address] [place] [phone] Apr, Nadia Eugene Smoking (tobacco) co mplicating , third trimester O99.333 ; Nicotine dependence, cigarettes, uncomplicated F17.210 and 35 weeks gestation of Z3A.35 IMMUNIZATIONS Vaccine Route Administration Date Status TDAP [...] FOR REFERRAL No Information VITAL SIGNS Weight 194.6 lbs Apr, Height 64 in Apr, BMI 33.403 kg/m2 Apr, Blood pressure systolic 104 mm Hg Apr, Blood pressure diastolic 62 mm Hg Apr, MEDICATIONS Medication SIG (Take, Route, Frequency, Duration) Notes Start Da te End Date Status Methadone HCl 10 MG/ML 5.5 mL Orally Once a day Active Ferrous Sulfate 325 (65 Fe) MG 1 tablet Orally Once a day for 30 day(s) Feb, Not-Taking 27-1 MG 1 tablet Orally Once a day Active Ondansetron 4 MG 1 tablet on the tongue and a llow to dissolve Orally Once a day for 90 days Jan, Active PROCEDURES No Information RESULTS Component Value Reference Range GROUP B STREP CULTURE Reviewed date:04/27/2020 09:20:20 Interpretation: Performing Lab:[facility], [facility] [address] [facility] [address] , ,[place] [address] REASON FOR VISIT 4WK PN MEDICAL (GENERAL) HISTORY Type Description Date Medical History History of Opiod use Medical History recovering addict Herion, Meth Surgical History none Hospitalization History Childbirth Goals Section No Information Health Concerns No Information MEDICAL EQUIPMENT No Information MENTAL STATUS No Information FUNCTIONAL STATUS No Information ASSESSMENTS Encounter Date Diagnosis Assessment Notes Treatment Notes Treatm ent Clinical Notes Apr, Smoking (tobacco) complicati ng , third trimester (ICD-10 - O99.333) Apr, Nicotine dependence, cigarettes, uncompl icated (ICD-10 - F17.210) Apr, 35 weeks gestation of (ICD-10 - Z3A.35 ) PLAN OF TREATMENT Next Appt Details 1 Week Reason: Follow Up:1 Weekprenatal Insurance Providers Payer Name Payer Address Payer Phone Insured Name Patient Relati onship to Insured Coverage Start Date Coverage End Date [facility] [address] [facility] [address] GRISEL LOZA self
--- OUTSIDE RECORDS SUMMARY | 2020-05-23 07:13 | CCD ---
Author Author [facility] Organization [facility] Address Unknown Phone Unavailable Care Team Providers Care City Auditor Name Role Phone Darcy Jimenez Unavailable PROBLEMS Type Condition ICD9-CM Code LAN17-HQ Code Onset Dates Condition S tatus W/U Status Risk SNOMED Code Notes Problem Iron deficiency anemia D50.9 Active confirmed 11031126 Problem Supervision of other normal Z34.80 Ac tive confirm 733666802 Problem Dysmenorrhea 625.3 Active confirmed 4605488 00 Problem Supervision of other normal Z34.80 Ac tive confirm 926674958 Problem Supervision of other normal Z34.80 Ac tive confirmed 138083942 ALLERGIES No Known Allergies ENCOUNTERS from 1995 to 2020-05-19 Encounter Location Date Provider Diagnosis [facility] [address] [place] [phone] May, Darcy Jimenez 38 weeks gestatio n of Z3A.38 ; Tobacco use during in third trimester O99.333 and Cigarette smoker F17.210 IMMUNIZATIONS Vaccine Route Administration Date Status TDAP [...] FOR REFERRAL No Information VITAL SIGNS Weight 198 lbs May, Weight-kg 89.81 kg May, Height 64 in May, BMI 33.987 kg/m2 May, Blood pressure systolic 118 mm Hg May, Blood pressure diastolic 60 mm Hg May, MEDICATIONS Medication SIG (Take, Route, Frequency, Duration) Notes Start Da te End Date Status 27-1 MG 1 tablet Orally Once a day Active Depo-Provera 150 MG/ML 150ml. Intramuscular every 12 wks. for 30 day( s) Not-Taking 27-1 MG 1 tablet Orally Once a day Not-Taking Ondansetron 4 MG 1 tablet on the tongue and a llow to dissolve Orally Once a day for 90 days Jan, Active Methadone HCl 40 MG 55mg Orally Once a day Active Methadone HCl 10 MG/ML 5.5 mL Orally Once a day Not-Taking Ferrous Sulfate 325 (65 Fe) MG 1 tablet Orally Once a day for 30 day(s) Feb, Not-Taking PROCEDURES No Information RESULTS No Results REASON FOR VISIT 1WK PN MEDICAL (GENERAL) HISTORY Type Description Date Medical History History of Opiod use Medical History recovering addict Herion, Meth Surgical History none Hospitalization History Childbirth Goals Section No Information Health Concerns No Information MEDICAL EQUIPMENT No Information MENTAL STATUS No Information FUNCTIONAL STATUS No Information ASSESSMENTS Encounter Date Diagnosis Assessment Notes Treatment Notes Treatm ent Clinical Notes May, 38 weeks gestation of (ICD-10 - Z3A.38 ) May, Tobacco use during in third tr imester (ICD-10 - O99.333) May, Cigarette smoker (ICD-10 - F17.210) PLAN OF TREATMENT Next Appt Details 1 Week Reason:returnob Provider Name:Nadia Eugene 2020-05-21 11:20:00 AM, [address] [place], [address], Follow Up:1 Weekreturnob Insurance Providers Payer Name Payer Address Payer Phone Insured Name Patient Relati onship to Insured Coverage Start Date Coverage End Date [facility] [address] [facility] [phone] GRISEL LOZA self
--- OUTSIDE RECORDS SUMMARY | 2020-05-23 07:13 | CCD ---
Author Author [facility] Organization [facility] Address Unknown Phone Unavailable Care Team Providers Care Fixing Carpenter Name Role Phone Darcy Jimenez Unavailable PROBLEMS Type Condition ICD9-CM Code IGI35-EI Code Onset Dates Condition S tatus W/U Status Risk SNOMED Code Notes Problem Iron deficiency anemia D50.9 Active confirmed 79857682 Problem Supervision of other normal Z34.80 Ac tive confirm 389063965 Problem Dysmenorrhea 625.3 Active confirmed 9040229 00 Problem Supervision of other normal Z34.80 Ac tive confirm 797608813 Problem Supervision of other normal Z34.80 Ac tive confirmed 832922681 ALLERGIES No Known Allergies ENCOUNTERS from 1995 to 2020-05-16 Encounter Location Date Provider Diagnosis [facility] [address] [place] [phone] Apr, Darcy Jimenez Encounter for sup ervision of normal in multigravida in third trimester Z34.83 and 37 weeks gestation of Z3A.37 IMMUNIZATIONS Vaccine Route Administration Date Status TDAP [...] FOR REFERRAL No Information VITAL SIGNS Weight 196 lbs Apr, Height 64 in Apr, BMI 33.643 kg/m2 Apr, Blood pressure systolic 112 mm [...] Treatment Notes Treatm ent Clinical Notes Apr, Encounter for supervision of normal in multigravida in third trimester (ICD-10 - Z34.83) Apr, 37 weeks gestation of (ICD-10 - Z3A.37 ) PLAN OF TREATMENT Next Appt Details 1 Week Reason:return ob Provider Name:Nadia M Jabier 2020-05-21 11:20:00 AM, [address] [place], [address], Follow Up:1 Weekreturn ob Insurance Providers Payer Name Payer Address Payer Phone Insured Name Patient Relati onship to Insured Coverage Start Date Coverage End Date [facility] COMMUNITY PLAN [facility] [address] [facility] [address] GRISEL LOZA self
--- OUTSIDE RECORDS SUMMARY | 2020-05-23 07:14 | CCD ---
Author Author [facility] Organization [facility] Address Unknown Phone Unavailable Care Team Providers Care Logistics Operations Manager Name Role Phone Darcy Jimenez Unavailable PROBLEMS Type Condition ICD9-CM Code EOV31-LL Code Onset Dates Condition S tatus SNOMED Code Notes Problem Supervision of other normal Z34.80 Ac tive 284001370 Problem Supervision of other normal Z34.80 Ac tive 048680062 ALLERGIES No Known Allergies ENCOUNTERS from 1995 to 2020-03-03 Encounter Location Date Provider Diagnosis [facility] [address] [place] [phone] Feb, Darcy Jimenez Smoking (tobacco) complicating , second trimester O99.332 ; Cigarette smoker F17.210 ; 26 weeks gestation of Z3A.26 and Encounter for immunization Z23 IMMUNIZATIONS Vaccine Route Administration Date Status Influenza [...] FOR REFERRAL No Information VITAL SIGNS Weight 179.6 lbs 10 Feb, 2020 Weight-kg 81.47 kg Feb, Height 64 in 10 Feb, 2020 BMI 30.828 kg/m2 Feb, Blood pressure systolic 120 mm Hg Feb, Blood pressure diastolic 62 mm Hg Feb, MEDICATIONS Medication SIG (Take, Route, Frequency, Duration) Notes Start Da te End Date Status 27-1 MG 1 tablet Orally Once a day Active Ondansetron 4 MG 1 tablet on the tongue and a llow to dissolve Orally Once a day for 90 days Jan, Active Methadone HCl 40 MG 45 ml as needed Orally Once a day Active PROCEDURES Procedure Date Ordered Result Body Site Immunization: Fluzone (6mo & older) 0.5mL IM (Influenza) 2020-02 N/A RESULTS No Results REASON FOR VISIT 4 WK PN MEDICAL (GENERAL) HISTORY Type Description Date Medical History History of Opiod use Medical History recovering addict Herion, Meth Surgical History none Hospitalization History Childbirth Goals Section No Information Health Concerns No Information MEDICAL EQUIPMENT No Information MENTAL STATUS No Information FUNCTIONAL STATUS No Information ASSESSMENTS Encounter Date Diagnosis Assessment Notes Treatment Notes Treatm ent Clinical Notes Feb, Smoking (tobacco) complicati ng , second trimester (ICD-10 - O99.332) Feb, Cigarette smoker (ICD-10 - F17.210) Feb, 26 weeks gestation of (ICD-10 - Z3A.26 ) Feb, Encounter for immunization (ICD-10 - Z23) PLAN OF TREATMENT Medication Medication Name Sig Start Date Stop Date Ondansetron 4 MG 1 tablet on the tongue and a llow to dissolve Orally Once a day for 90 days Jan, Next Appt Details 4 Weeks Reason:return ob Follow Up:4 Weeksreturn ob Insurance Providers Payer Name Payer Address Payer Phone Insured Name Patient Relati onship to Insured Coverage Start Date Coverage End Date COUNTS INCLUDE [address] [facility]S AT [facility] COMMUNITY PLAN [facility] [address] [facility] [phone] GRISEL LOZA self
--- OUTSIDE RECORDS SUMMARY | 2020-05-23 07:14 | CCD ---
Author Author [facility] Organization [facility] Address Unknown Phone Unavailable Care Team Providers Care Front Desk Clerk Name Role Phone Mcmillan, Gus Unavailable PROBLEMS Type Condition ICD9-CM Code JBY21-CQ Code Onset Dates Condition S tatus SNOMED Code Notes Problem Supervision of other normal Z34.80 Ac tive 194743967 Problem Supervision of other normal Z34.80 Ac tive 368679547 ALLERGIES No Known Allergies ENCOUNTERS from 1995 to 2020-02-27 Encounter Location Date Provider Diagnosis [facility] [address] [place] [phone] Feb, Gus Mcmillan IMMUNIZATIONS Vaccine Route Administration Date Status Influenza [...] tobacco use and urged to quit: 10/23/2019 Patient counseled on the dangers of tobacco use and urged to quit: 01/21/2020 How many cigarettes a day do you [...] needed Orally Once a day Active PROCEDURES No Information RESULTS No Results REASON FOR VISIT refill- zofran MEDICAL (GENERAL) HISTORY Type Description Date Medical History History of Opiod use Medical History recovering addict Herion, Meth Surgical History none Hospitalization History Childbirth Goals Section No Information Health Concerns No Information MEDICAL EQUIPMENT No Information MENTAL STATUS No Information FUNCTIONAL STATUS No Information ASSESSMENTS No Information PLAN OF TREATMENT Medication Medication Name Sig Start Date Stop Date Ondansetron 4 MG 1 tablet on the tongue and a llow to dissolve Orally Once a day for 90 days Jan, Insurance Providers Payer Name Payer Address Payer Phone Insured Name Patient Relati onship to Insured Coverage Start Date Coverage End Date [facility] COMM[facility] PLAN [facility] [address] [facility] [phone] GRISEL LOZA self
--- OUTSIDE RECORDS SUMMARY | 2020-05-23 07:14 | CCD ---
Author Author [facility] Organization [facility] Address Unknown Phone Unavailable Care Team Providers Care Grill Chef Name Role Phone Edgar Lipscomb MD Unavailable Unavailable Edgar Lipscomb MD Unavailable Unavailable Edgar Lipscomb MD Unavailable Unavailable Edgar Lipscomb MD Unavailable Unavailable Edgar Lipscomb MD Unavailable Unavailable Edgar Lipscomb MD Unavailable Unavailable Edgar Lipscomb MD Unavailable Unavailable Edgar Lipscomb MD Unavailable Unavailable Edgar Lipscomb MD Unavailable Unavailable Edgar Lipscomb MD Unavailable Unavailable Edgar Lipscomb MD Unavailable Unavailable Edgar Lipscomb MD Unavailable Unavailable Edgar Lipscomb MD Unavailable Unavailable Edgar Lipcsomb MD Unavailable Unavailable Edgar Lipscomb MD Unavailable Unavailable Edgar Lipscomb MD Unavailable Unavailable Edgar Lipscomb MD Unavailable Unavailable Edgar Lipscomb MD Unavailable Unavailable Edgar Lipscomb MD Unavailable Unavailable Edgar Lipscomb MD Unavailable Unavailable Edgar Lipscomb MD Unavailable Unavailable Edgar Lipscomb MD Unavailable Unavailable Edgar Lipscomb MD Unavailable Unavailable Edgar Lipscomb MD Unavailable Unavailable Edgar Lipscomb MD Unavailable Unavailable Edgar Lipscomb MD Unavailable Unavailable Edgar Lipscomb MD Unavailable Unavailable Edgar Lipscomb MD Unavailable Unavailable Edgar Lipscomb MD Unavailable Unavailable Edgar Lipscomb MD Unavailable Unavailable Edgar Lipscomb MD Unavailable Unavailable Edgar Lipscomb MD Unavailable Unavailable Edgar Lipscomb MD Unavailable Unavailable Edgar Lipscomb MD Unavailable Unavailable Edgar Lipscomb MD Unavailable Unavailable Edgar Lipscomb MD Unavailable Unavailable Edgar Lipscomb MD Unavailable Unavailable dEgar Lipscomb MD Unavailable Unavailable Edgar Lipscomb MD Unavailable Unavailable Edgar Lipscomb MD Unavailable Unavailable Edgar Lipscomb MD Unavailable Unavailable Edgar Lipscomb MD Unavailable Unavailable Edgar Lipscomb MD Unavailable Unavailable Edgar Lipscomb MD Unavailable Unavailable Edgar Lipscomb MD Unavailable Unavailable Edgar Lipscomb MD Unavailable Unavailable Edgar Lipscomb MD Unavailable Unavailable Edgar Lipscomb MD Unavailable Unavailable Edgar Lipscomb MD Unavailable Unavailable Edgar Lipscomb MD Unavailable Unavailable Edgar Lipscomb MD Unavailable Unavailable Edgar Lipscomb MD Unavailable Unavailable Edgar Lipscomb MD Unavailable Unavailable Edgar Lipscomb MD Unavailable Unavailable Edgar Lipscomb MD Unavailable Unavailable Edgar Lipscomb MD Unavailable Unavailable Edgar Lipscomb MD Unavailable Unavailable Edgar Lipscomb MD Unavailable Unavailable Edgar Lipscomb MD Unavailable Unavailable Edgar Lipscomb MD Unavailable Unavailable Edgar Lipscomb MD Unavailable Unavailable Edgar Lipscomb MD Unavailable Unavailable Edgar Lipscomb MD Unavailable Unavailable Edgar Lipscomb MD Unavailable Unavailable Edgar Lipscomb MD Unavailable Unavailable Edgar Lipscomb MD Unavailable Unavailable Edgar Lipscomb MD Unavailable Unavailable Edgar Lipscomb MD Unavailable Unavailable Edgar Lipscomb MD Unavailable Unavailable Edgar Lipscomb MD Unavailable Unavailable Edgar Lipscomb MD Unavailable Unavailable Edgar Lipscomb MD Unavailable Unavailable Edgar Lipscomb MD Unavailable Unavailable Edgar Lipscomb MD Unavailable Unavailable Edgar Lipscomb MD Unavailable Unavailable Edgar Lipscomb MD Unavailable Unavailable Edgar Lipscomb MD Unavailable Unavailable Edgar Lipscomb MD Unavailable Unavailable Edgar Lipscomb MD Unavailable Unavailable Edgar Lipscomb MD Unavailable Unavailable Edgar Lipscomb MD Unavailable Unavailable Edgar Lipscomb MD Unavailable Unavailable Edgar Lipscomb MD Unavailable Unavailable Edgar Lipscomb MD Unavailable Unavailable Edgar Lipscomb MD Unavailable Unavailable Edgar Lipscomb MD Unavailable Unavailable Edgar Lipscomb MD Unavailable Unavailable Edgar Lipscomb MD Unavailable Unavailable Edgar Lipscomb MD Unavailable Unavailable Guillermo UREÑA MD Unavailable Unavailable Guillermo UREÑA MD Unavailable Unavailable Guillermo UREÑA MD Unavailable Unavailable Guillermo UREÑA MD Unavailable Unavailable Guillermo UREÑA MD Unavailable Unavailable Guillermo UREÑA MD Unavailable Unavailable Guillermo UREÑA MD Unavailable Unavailable Guillermo UREÑA MD Unavailable Unavailable Guillermo UREÑA MD Unavailable Unavailable Guillermo UREÑA MD Unavailable Unavailable Guillermo UREÑA MD Unavailable Unavailable Guillermo UREÑA MD Unavailable Unavailable Guillermo UREÑA MD Unavailable Unavailable Guillermo UREÑA MD Unavailable Unavailable Guillermo UREÑA MD Unavailable Unavailable Guillermo UREÑA MD Unavailable Unavailable Guillermo UREÑA MD Unavailable Unavailable Guillermo UREÑA MD Unavailable Unavailable Guillermo UREÑA MD Unavailable Unavailable Guillermo UREÑA MD Unavailable Unavailable Guillermo UREÑA MD Unavailable Unavailable Guillermo UREÑA MD Unavailable Unavailable Guillermo UREÑA MD Unavailable Unavailable Guillermo UREÑA MD Unavailable Unavailable Guillermo UREÑA MD Unavailable Unavailable Guillermo UREÑA MD Unavailable Unavailable Guillermo UREÑA MD Unavailable Unavailable Guillermo UREÑA MD Unavailable Unavailable Guillermo UREÑA MD Unavailable Unavailable Guillermo UREÑA MD Unavailable Unavailable Guillermo UREÑA MD Unavailable Unavailable Guillermo UREÑA MD Unavailable Unavailable Guillermo UREÑA MD Unavailable Unavailable Guillermo UREÑA MD Unavailable Unavailable Guillermo UREÑA MD Unavailable Unavailable Guillermo UREÑA MD Unavailable Unavailable Guillermo UREÑA MD Unavailable Unavailable Guillermo UREÑA MD Unavailable Unavailable Guillermo UREÑA MD Unavailable Unavailable Guillermo UREÑA MD Unavailable Unavailable Guillermo UREÑA MD Unavailable Unavailable Guillermo UREÑA MD Unavailable Unavailable Guillermo UREÑA MD Unavailable Unavailable Guillermo UREÑA MD Unavailable Unavailable Guillermo UREÑA MD Unavailable Unavailable Guillermo UREÑA MD Unavailable Unavailable JACKIE, Guillermo SALAS MD Unavailable Unavailable JACKIE, Guillermo SALAS MD Unavailable Unavailable JACKIE, T MARITZA BOOKER Unavailable Unavailable JACKIE, T MARITZA BOOKER Unavailable Unavailable JACKIE, T MARITZA BOOKER Unavailable Unavailable JACKIE, T MARITZA BOOKER Unavailable Unavailable JACKIE, T MARITZA BOOKER Unavailable Unavailable JACKIE, Guillermo SALAS MD Unavailable Unavailable JACKIE, Guillermo SALAS MD Unavailable Unavailable JACKIE, T MARITZA BOOKER Unavailable Unavailable JACKIE, T MARITZA BOOKER Unavailable Unavailable JACKIE, T MARITZA BOOKER Unavailable Unavailable JACKIE, T MARITZA BOOKER Unavailable Unavailable JACKIE, T MARITZA BOOKER Unavailable Unavailable JACKIE, T MARITZA BOOKER Unavailable Unavailable JACKIE, T MARITZA BOOKER Unavailable Unavailable JACKIE, T MARITZA BOOKER Unavailable Unavailable JACKIE, T MARITZA BOOKER Unavailable Unavailable JACKIE, T MARITZA BOOKER Unavailable Unavailable JACKIE, T MARITZA BOOKER Unavailable Unavailable JACKIE, T MARITZA BOOKER Unavailable Unavailable JACKIE, T MARITZA BOOKER Unavailable Unavailable JACKIE, T MARITZA BOOKER Unavailable Unavailable JACKIE, T MARITZA BOOKER Unavailable Unavailable JACKIE, T MARITZA BOOKER Unavailable Unavailable JACKIE, T MARITZA BOOKER Unavailable Unavailable JACKIE, T MARITZA BOOKER Unavailable Unavailable JACKIE, T MARITZA BOOKER Unavailable Unavailable JACKIE, T MARITZA BOOKER Unavailable Unavailable JACKIE, T MARITZA BOOKER Unavailable Unavailable JACKIE, T MARITZA BOOKER Unavailable Unavailable JACKIE, T MARITZA BOOKER Unavailable Unavailable JACKIE, T MARITZA BOOKER Unavailable Unavailable JACKIE, T MARITZA BOOKER Unavailable Unavailable JACKIE, T MARITZA BOOKER Unavailable Unavailable JACKIE, T MARITZA BOOKER Unavailable Unavailable JACKIE, T MARITZA BOOKER Unavailable Unavailable Re-disclosure Warning The records that you are about to access may contain information from federally-assisted alcohol or drug abuse programs. If such information is present, then the following federally mandated warning applies: This information has been disclosed to you from records protected by federal confidentiality rules (42 CFR part 2). The federal rules prohibit you from making any further disclosure of this information unless further disclosure is expressly permitted by the written consent of the person to whom it pertains or as otherwise permitted by 42 CFR part 2. A general authorization for the release of medical or other information is NOT sufficient for this purpose. The Federal rules restrict any use of the information to criminally investigate or prosecute any alcohol or drug abuse patient.The records that you are about to access may contain highly sensitive health information, the redisclosure of which is protected by Article 27-F of the [facility] Public Health law. If you continue you may have access to information: Regarding HIV / AIDS; Provided by facilities licensed or operated by the [facility] Office of Mental Health; or Provided by the [facility] Office for People With Developmental Disabilities. If such information is present, then the following [facility] mandated warning applies: This information has been disclosed to you from confidential records which are protected by state law. State law prohibits you from making any further disclosure of this information without the specific written consent of the person to whom it pertains, or as otherwise permitted by law. Any unauthorized further disclosure in violation of state law may result in a fine or snf sentence or both. A general authorization for the release of medical or other information is NOT sufficient authorization for further disc losure. Family History Family Member Name Family Member Gender Family Member Status Date o f Status Description Data Source(s) Unknown Unknown Problem MEDENT ([facility]) Unknown Unknown Problem MEDENT ([facility]) Unknown Unknown Problem MEDENT ([facility]) Encounters Encounter Providers Location Date Indications Data Source(s ) ( ESTOB) [facility] [address] [place] [address] 05/13/2020 12:00:00 AM EST eCW1 ([facility]) ( ESTOB) [facility] [address] [place] [address] 05/06/2020 12:00:00 AM EST eCW1 ([facility]) ( ESTOB) [facility] [address] [place] [address] 04/30/2020 12:00:00 AM EST eCW1 ([facility]) ( ESTOB) [facility] [address] [place] [address] 04/23/2020 12:00:00 AM EST eCW1 ([facility]) ( ESTOB) [facility] [address] [place] [address] 04/06/2020 12:00:00 AM EST eCW1 ([facility]) Unknown [address] [facility] [place] [address] 03/09/2020 12:00:00 AM EST eCW1 ([facility]) Unknown [address] [facility] [place] [address] 02/20/2020 12:00:00 AM EST eCW1 ([facility]) (WC ESTOB) [facility] [address] [place] [address] 02/18/2020 12:00:00 AM EST eCW1 ([facility]) (WC ESTOB) [facility] [address] [place] [address] 01/21/2020 12:00:00 AM EDT eCW1 ([facility]) (WC ESTOB) [facility] [address] [place] [address] 10/23/2019 12:00:00 AM EDT eCW1 ([facility]) Outpatient Attender: Venkata Lipscomb MD FP 10/22/2019 09:47:02 AM EDT [facility] Outpatient Attender: Venkata Lipscomb MD FP 10/22/2019 09:46:00 AM EDT [facility] Outpatient Attender: Venkata Lipscomb MD FP 10/03/2019 03:20:01 PM EDT [facility] Outpatient Attender: Venkata Lipscomb MD FP 10/03/2019 03:19:00 PM EDT [facility] Outpatient Attender: Venkata Lipscomb MD FP 10/03/2019 01:26:02 PM EDT [facility] Outpatient Attender: Venkata Lipscomb MD FP 10/03/2019 01:26:01 PM EDT [facility] Outpatient Attender: Venkata Lipscomb MD FP 10/03/2019 12:12:00 PM EDT [facility] Outpatient Attender: Venkata Lipscomb MD FP 10/03/2019 11:07:01 AM EDT [facility] Outpatient Attender: MARITZA UREÑA MD FP 10/03/2019 11:05:00 A M EDT [facility] Outpatient Attender: MARIZTA UREÑA MD FP 06/14/2019 09:01:01 P M EST [facility] Immunizations Vaccine Date Status Description Data Source(s) Tdap 04/06/2020 02:23:00 PM EST completed e 1 ([facility]) Tdap 04/06/2020 02:23:00 PM EST completed e 1 ([facility]) Tdap 04/06/2020 02:23:00 PM EST completed e 1 ([facility]) Tdap 04/06/2020 02:23:00 PM EST completed e 1 ([facility]) Tdap 04/06/2020 02:23:00 PM EST completed e 1 ([facility]) Medications Medication Brand Name Start Date Product Form Dose Route Admi nistrative Instructions Pharmacy Instructions Status Indications Reaction Description Data Source(s) ferrous sulfate 325 MG Oral Tablet Ferrous Sulfate 325 (65 Fe) MG Ferrous Sulfate 325 (65 Fe) MG 03/09/2020 12:00:00 AM EST 1.0 {tablet} suspended Ferrous Sulfate 325 (65 Fe) MG e [facility] ([facility]) ferrous sulfate 325 MG Oral Tablet Ferrous Sulfate 325 (65 Fe) MG Ferrous Sulfate 325 (65 Fe) MG 03/09/2020 12:00:00 AM EST 1.0 {tablet} active Ferrous Sulfate 325 (65 Fe) MG [facility] ([facility]) ferrous sulfate 325 MG Oral Tablet Ferrous Sulfate 325 (65 Fe) MG Ferrous Sulfate 325 (65 Fe) MG 03/09/2020 12:00:00 AM EST 1.0 {tablet} suspended Ferrous Sulfate 325 (65 Fe) MG e [facility] ([facility]) ferrous sulfate 325 MG Oral Tablet Ferrous Sulfate 325 (65 Fe) MG Ferrous Sulfate 325 (65 Fe) MG 03/09/2020 12:00:00 AM EST 1.0 {tablet} active Ferrous Sulfate 325 (65 Fe) MG eC1 ([facility]) ferrous sulfate 325 MG Oral Tablet Ferrous Sulfate 325 (65 Fe) MG Ferrous Sulfate 325 (65 Fe) MG 03/09/2020 12:00:00 AM EST 1.0 {tablet} suspended Ferrous Sulfate 325 (65 Fe) MG e [facility] ([facility]) ferrous sulfate 325 MG Oral Tablet Ferrous Sulfate 325 (65 Fe) MG Ferrous Sulfate 325 (65 Fe) MG 03/09/2020 12:00:00 AM EST 1.0 {tablet} suspended Ferrous Sulfate 325 (65 Fe) MG e [facility] ([facility]) ferrous sulfate 325 MG Oral Tablet Ferrous Sulfate 325 (65 Fe) MG Ferrous Sulfate 325 (65 Fe) MG 03/09/2020 12:00:00 AM EST 1.0 {tablet} suspended Ferrous Sulfate 325 (65 Fe) MG e CW1 ([facility]) 4 mg 02/27/2020 12:00:00 AM EST tablet,disintegrating [address] 1 TABLET ON THE TONGUE AND ALLOW TO DISSOLVE ONCE DAILY PLACE 1 TABLET ON THE TONGUE AND ALLOW TO DISSOLVE ONCE DAILY SOLD: 02/29/2020 [facility] 4 mg 02/27/2020 12:00:00 AM EST tablet,disintegrating [address] 1 TABLET ON THE TONGUE AND ALLOW TO DISSOLVE ONCE DAILY PLACE 1 TABLET ON THE TONGUE AND ALLOW TO DISSOLVE ONCE DAILY SOLD: 04/02/2020 [facility] 4 mg 01/24/2020 12:00:00 AM EDT tablet,disintegrating 3 0 DISSOLVE ONE TABLET ON TONGUE EVERY DAY DISSOLVE ONE TABLET ON TONGUE EVERY DAY SOLD: 01/24/2020 [facility] Ondansetron 4 MG Disintegrating Oral Tablet Ondansetron 4 MG 01/24/2020 12:00:00 AM EDT 1.0 {tablet_on_the_tongue_and_allow_to_dissolve} active Ondansetron 4 MG eCW1 ([facility]) Ondansetron 4 MG Disintegrating Oral Tablet Ondansetron 4 MG 01/24/2020 12:00:00 AM EDT 1.0 {tablet_on_the_tongue_and_allow_to_dissolve} active Ondansetron 4 MG eCW1 ([facility]) Ondansetron 4 MG Disintegrating Oral Tablet Ondansetron 4 MG 01/24/2020 12:00:00 AM EDT 1.0 {tablet_on_the_tongue_and_allow_to_dissolve} active Ondansetron 4 MG eCW1 ([facility]) Ondansetron 4 MG Disintegrating Oral Tablet Ondansetron 4 MG 01/24/2020 12:00:00 AM EDT 1.0 {tablet_on_the_tongue_and_allow_to_dissolve} active Ondansetron 4 MG eCW1 ([facility]) Ondansetron 4 MG Disintegrating Oral Tablet Ondansetron 4 MG 01/24/2020 12:00:00 AM EDT 1.0 {tablet_on_the_tongue_and_allow_to_dissolve} active Ondansetron 4 MG eCW1 ([facility]) Ondansetron 4 MG Disintegrating Oral Tablet Ondansetron 4 MG 01/24/2020 12:00:00 AM EDT 1.0 {tablet_on_the_tongue_and_allow_to_dissolve} active Ondansetron 4 MG eCW1 ([facility]) Ondansetron 4 MG Disintegrating Oral Tablet Ondansetron 4 MG 01/24/2020 12:00:00 AM EDT 1.0 {tablet_on_the_tongue_and_allow_to_dissolve} active Ondansetron 4 MG eCW1 ([facility]) Ondansetron 4 MG Disintegrating Oral Tablet Ondansetron 4 MG 01/24/2020 12:00:00 AM EDT 1.0 {tablet_on_the_tongue_and_allow_to_dissolve} active Ondansetron 4 MG eCW1 ([facility]) Ondansetron 4 MG Disintegrating Oral Tablet Ondansetron 4 MG 01/24/2020 12:00:00 AM EDT 1.0 {tablet_on_the_tongue_and_allow_to_dissolve} active Ondansetron 4 MG eCW1 ([facility]) Ondansetron 4 MG Disintegrating Oral Tablet Ondansetron 4 MG 01/24/2020 12:00:00 AM EDT 1.0 {tablet_on_the_tongue_and_allow_to_dissolve} active Ondansetron 4 MG eCW1 ([facility]) 8-2 mg 12/12/2019 12:00:00 AM EDT film 28 PLACE 1 FILM UNDER THE TONGUE TWO TIMES A DAY MAXIMUM DAILY DOSE = [address] 1 FILM UNDER THE TONGUE TWO TIMES A DAY MAXIMUM DAILY DOSE = 2 FILMS SOLD: 12/19/2019 [facility] 4 mg 11/25/2019 12:00:00 AM EDT tablet,disintegrating 3 0 DISSOLVE 1 TABLET BY MOUTH EVERY 6 HOURS NEEDED FOR NAUSEA DISSOLVE 1 TABLET BY MOUTH EVERY 6 HOURS NEEDED FOR NAUSEA SOLD: 01/09/2020 [facility] 4 mg 11/25/2019 12:00:00 AM EDT tablet,disintegrating 3 0 DISSOLVE 1 TABLET BY MOUTH EVERY 6 HOURS NEEDED FOR NAUSEA DISSOLVE 1 TABLET BY MOUTH EVERY 6 HOURS NEEDED FOR NAUSEA SOLD: 12/26/2019 [facility] 4 mg 11/25/2019 12:00:00 AM EDT tablet,disintegrating 3 0 DISSOLVE 1 TABLET BY MOUTH EVERY 6 HOURS NEEDED FOR NAUSEA DISSOLVE 1 TABLET BY MOUTH EVERY 6 HOURS NEEDED FOR NAUSEA SOLD: 11/25/2019 [facility] 4 mg 11/25/2019 12:00:00 AM EDT tablet,disintegrating 3 0 DISSOLVE 1 TABLET BY MOUTH EVERY 6 HOURS NEEDED FOR NAUSEA DISSOLVE 1 TABLET BY MOUTH EVERY 6 HOURS NEEDED FOR NAUSEA SOLD: 12/10/2019 [facility] 8 mg 11/22/2019 12:00:00 AM EDT tablet, sublingual 30 PLACE ONE TABLET UNDER THE TONGUE TWICE A DAY * MAXIMUM DAILY DOSE = 2 PLACE ONE TABLET UNDER THE TONGUE TWICE A DAY * MAXIMUM DAILY DOSE = 2 SOLD: 11/25/2019 [facility] 8 mg 11/07/2019 12:00:00 AM EDT tablet, sublingual 6 PLACE ONE AND ONE HALF TABLET BY MOUTH UNDER THE TONGUE EVERY MORNING MAXIMUM DAILY DOSE = 1 & 1/2 PLACE ONE AND ONE HALF TABLET BY MOUTH UNDER THE TONGUE EVERY MORNING MAXIMUM DAILY DOSE = 1 & 1/2 SOLD: 11/07/2019 [facility] 8 mg 11/07/2019 12:00:00 AM EDT tablet, sublingual 16 PLACE ONE AND ONE HALF TABLET BY MOUTH UNDER THE TONGUE EVERY MORNING MAXIMUM DAILY DOSE = 1 & 1/2 PLACE ONE AND ONE HALF TABLET BY MOUTH UNDER THE TONGUE EVERY MORNING MAXIMUM DAILY DOSE = 1 & 1/2 SOLD: 11/11/2019 [facility] 2 mg 11/06/2019 12:00:00 AM EDT tablet, sublingual 15 PLACE ONE TABLET UNDER THE TONGUE EVERY EVENING MAXIMUM DAILY DOSE = 1 PLACE ONE TABLET UNDER THE TONGUE EVERY EVENING MAXIMUM DAILY DOSE = 1 SOLD: 11/06/2019 [facility] 25 mg 10/22/2019 12:00:00 AM EDT capsule 60 TAKE TWO CAPSULES BY MOUTH EVERY DAY AT BEDTIME TAKE TWO CAPSULES BY MOUTH EVERY DAY AT BEDTIME SOLD: 2019 [facility] 8 mg 10/22/2019 12:00:00 AM EDT tablet, sublingual 22 PLACE 1 & 1/2 TABLETS UNDER THE TONGUE EVERY MORNING MAXIMUM DAILY DOSE = 1 & 1/[address] 1 & 1/2 TABLETS UNDER THE TONGUE EVERY MORNING MAXIMUM DAILY DOSE = 1 & 1/2 TABLETS SOLD: 10/22/2019 [facility] 2 mg 10/22/2019 12:00:00 AM EDT tablet, sublingual 15 PLACE ONE TABLET UNDER THE TONGUE EVERY EVENING MAXIMUM DAILY DOSE = [address] ONE TABLET UNDER THE TONGUE EVERY EVENING MAXIMUM DAILY DOSE = 1 TABLET SOLD: 10/22/2019 [facility] 25 mg 10/07/2019 12:00:00 AM EDT tablet 10 TAKE ONE TABLET BY MOUTH EVERY DAY NEEDED TAKE ONE TABLET BY MOUTH EVERY DAY NEEDED SOLD: 10/07/2019 [facility] 8 mg 10/07/2019 12:00:00 AM EDT tablet, sublingual 22 PLACE ONE AND ONE-HALF TABLETS UNDER THE TONGUE EVERY MORNING MAXIMUM DAILY DOSE = 1 AND ONE-HALF TABLETS PLACE ONE AND ONE-HALF TABLETS UNDER THE TONGUE EVERY MORNING MAXIMUM DAILY DOSE = 1 AND ONE-HALF TABLETS SOLD: 10/07/2019 [facility] 25 mg 10/07/2019 12:00:00 AM EDT tablet 10 TAKE ONE TABLET BY MOUTH EVERY DAY TAKE ONE TABLET BY MOUTH EVERY DAY SOLD: 10/07/2019 [facility] 2 mg 10/07/2019 12:00:00 AM EDT tablet, sublingual 15 PLACE ONE TABLET UNDER THE TONGUE EVERY EVENING MAXIMUM DAILY DOSE = [address] ONE TABLET UNDER THE TONGUE EVERY EVENING MAXIMUM DAILY DOSE = 1 TABLET SOLD: 10/07/2019 [facility] 10-10 mg 10/05/2019 12:00:00 AM EDT tablet,delayed release (DR/EC) 10 TAKE TWO TABLETS BY MOUTH EVERY DAY TAKE TWO TABLETS BY MOUTH EVERY DAY SOLD: 10/05/2019 [facility] 8 mg 09/24/2019 12:00:00 AM EDT tablet, sublingual 21 PLACE ONE AND ONE-HALF TABLETS UNDER THE TONGUE EVERY MORNING. MAXIMUM DAILY DOSE = 1 & 1/[address] ONE AND ONE-HALF TABLETS UNDER THE TONGUE EVERY MORNING. MAXIMUM DAILY DOSE = 1 & 1/2 TABLETS SOLD: 09/24/2019 [facility] 2 mg 09/24/2019 12:00:00 AM EDT tablet, sublingual 14 PLACE ONE TABLET UNDER THE TONGUE EVERY EVENING. MAXIMUM DAILY DOSE = [address] ONE TABLET UNDER THE TONGUE EVERY EVENING. MAXIMUM DAILY DOSE = 1 TABLET SOLD: 09/24/2019 [facility] 2-0.5 mg 08/30/2019 12:00:00 AM EDT film 30 PLACE ONE FILM UNDER THE TONGUE EVERY MORNING * MAXIMUM DAILY DOSE = 1 PLACE ONE FILM UNDER THE TONGUE EVERY MORNING * MAXIMUM DAILY DOSE = 1 SOLD: 08/30/2019 [facility] 8-2 mg 08/29/2019 12:00:00 AM EDT film 45 PLACE 1 AND 1/2 FILMS UNDER THE TONGUE EVERY MORNING * MAXIMUM DAILY DOSE = 1 & 1/2 PLACE 1 AND 1/2 FILMS UNDER THE TONGUE EVERY MORNING * MAXIMUM DAILY DOSE = 1 & 1/2 SOLD: 08/29/2019 [facility] 1 mg 08/28/2019 12:00:00 AM EDT tablet 60 TAKE ONE TABLET BY MOUTH TWICE A DAY TAKE ONE TABLET BY MOUTH TWICE A DAY SOLD: 08/29/2019 [facility] 25 mg 08/28/2019 12:00:00 AM EDT tablet 60 TAKE ONE TABLET BY MOUTH THREE TIMES A DAY AND TAKE THREE TABLETS AT BEDTIME NEEDED TAKE ONE TABLET BY MOUTH THREE TIMES A DAY AND TAKE THREE TABLETS AT BEDTIME NEEDED SOLD: 08/29/2019 [facility] 14 mg/24 hr 08/28/2019 12:00:00 AM EDT patch 24 hour 28 APPLY 1 PATCH TO SKIN ONCE DAILY APPLY 1 PATCH TO SKIN ONCE DAILY SOLD: 08/29/2019 [facility] 25 mg 08/28/2019 12:00:00 AM EDT tablet 60 TAKE ONE TABLET BY MOUTH THREE TIMES A DAY AND TAKE THREE TABLETS AT BEDTIME NEEDED TAKE ONE TABLET BY MOUTH THREE TIMES A DAY AND TAKE THREE TABLETS AT BEDTIME NEEDED SOLD: 09/20/2019 [facility] 2-0.5 mg 08/01/2019 12:00:00 AM EDT film 30 PLACE ONE FILM UNDER THE TONGUE EVERY MORNING MAXIMUM DAILY DOSE = 1 PLACE ONE FILM UNDER THE TONGUE EVERY MORNING MAXIMUM DAILY DOSE = 1 SOLD: 08/01/2019 [facility] 8-2 mg 07/31/2019 12:00:00 AM EDT film 45 PLACE ONE AND 1/2 FILM UNDER THE TONGUE EVERY MORNING MAXIMUM DAILY DOSE = 1 & 1/2 PLACE ONE AND 1/2 FILM UNDER THE TONGUE EVERY MORNING MAXIMUM DAILY DOSE = 1 & 1/2 SOLD: 07/31/2019 [facility] 8-2 mg 07/18/2019 12:00:00 AM EDT film 22 PLACE 1 AND 1/2 FILMS UNDER THE TONGUE EVERY MORNING * MAXIMUM DAILY DOSE = 1 & 1/2 PLACE 1 AND 1/2 FILMS UNDER THE TONGUE EVERY MORNING * MAXIMUM DAILY DOSE = 1 & 1/2 SOLD: 07/18/2019 [facility] 2-0.5 mg 07/18/2019 12:00:00 AM EDT film 15 PLACE ONE FILM UNDER THE TONGUE EVERY MORNING * MAXIMUM DAILY DOSE = 1 PLACE ONE FILM UNDER THE TONGUE EVERY MORNING * MAXIMUM DAILY DOSE = 1 SOLD: 07/18/2019 [facility] 1 mg 07/17/2019 12:00:00 AM EDT tablet 60 TAKE ONE TABLET BY MOUTH TWICE A DAY TAKE ONE TABLET BY MOUTH TWICE A DAY SOLD: 07/18/2019 [facility] 14 mg/24 hr 07/17/2019 12:00:00 AM EDT patch 24 hour 28 APPLY 1 PATCH TO SKIN DAILY APPLY 1 PATCH TO SKIN DAILY SOLD: 07/18/2019 [facility] 25 mg 06/19/2019 12:00:00 AM EDT tablet 60 TAKE ONE TABLET BY MOUTH THREE TIMES A DAY AND 3 TABLETS AT BEDTIME NEEDED TAKE ONE TABLET BY MOUTH THREE TIMES A DAY AND 3 TABLETS AT BEDTIME NEEDED SOLD: 07/11/2019 [facility] 25 mg 06/19/2019 12:00:00 AM EDT tablet 60 TAKE ONE TABLET BY MOUTH THREE TIMES A DAY AND 3 TABLETS AT BEDTIME NEEDED TAKE ONE TABLET BY MOUTH THREE TIMES A DAY AND 3 TABLETS AT BEDTIME NEEDED SOLD: 06/19/2019 [facility] 25 mg 06/19/2019 12:00:00 AM EDT tablet 60 TAKE ONE TABLET BY MOUTH THREE TIMES A DAY AND 3 TABLETS AT BEDTIME NEEDED TAKE ONE TABLET BY MOUTH THREE TIMES A DAY AND 3 TABLETS AT BEDTIME NEEDED SOLD: 07/31/2019 [facility] 8-2 mg 06/19/2019 12:00:00 AM EDT film 45 PLACE 1 AND 1/2 FILM UNDER THE TONGUE EVERY MORNING MAXIMUM DAILY DOSE = 1 AND 1/[address] 1 AND 1/2 FILM UNDER THE TONGUE EVERY MORNING MAXIMUM DAILY DOSE = 1 AND 1/2 FILM SOLD: 06/19/2019 [facility] 1 mg 06/19/2019 12:00:00 AM EDT tablet 56 TAKE ONE TABLET BY MOUTH TWICE A DAY TAKE ONE TABLET BY MOUTH TWICE A DAY SOLD: 06/19/2019 [facility] 2-0.5 mg 06/19/2019 12:00:00 AM EDT film 30 PLACE 1 FILM UNDER THE TONGUE EVERY MORNING MAXIMUM DAILY DOSE = [address] 1 FILM UNDER THE TONGUE EVERY MORNING MAXIMUM DAILY DOSE = 1 FILM SOLD: 06/19/2019 [facility] 8-2 mg 06/05/2019 12:00:00 AM EST film 22 PLACE ONE AND ONE HALF FILMS UNDER THE TONGUE EVERY MORNING MAXIMUM DAILY DOSE = 1 & 1/[address] ONE AND ONE HALF FILMS UNDER THE TONGUE EVERY MORNING MAXIMUM DAILY DOSE = 1 & 1/2 FILMS SOLD: 06/05/2019 [facility] 2-0.5 mg 06/05/2019 12:00:00 AM EST film 15 PLACE 1 FILM UNDER THE TONGUE EVERY MORNING MAXIMUM DAILY DOSE = 1 PLACE 1 FILM UNDER THE TONGUE EVERY MORN ING MAXIMUM DAILY DOSE = 1 SOLD: 06/05/2019 [facility] 0.5 mg (11)- 1 mg (42) 06/03/2019 12:00:00 AM EST tablets,do se pack 53 TAKE 1 TABLET BY MOUTH DIRECTED TAKE 1 TABLET BY MOUTH DIRECTED SOLD: 06/03/2019 [facility] 2-0.5 mg 05/08/2019 12:00:00 AM EST film 30 PLACE ONE FILM UNDER THE TONGUE EVERY MORNING MAXIMUM DAILY DOSE = 1 PLACE ONE FILM UNDER THE TONGUE EVERY MORNING MAXIMUM DAILY DOSE = 1 SOLD: 05/08/2019 [facility] 8-2 mg 05/07/2019 12:00:00 AM EST film 45 PLACE ONE AND ONE-HALF FILMS UNDER THE TONGUE EVERY MORNING MAX OF 1 AND 1/2 FILM TABLETS PER DAY PLACE ONE AND ONE-HALF FILMS UNDER THE TONGUE EVERY MORNING MAX OF 1 AND 1/2 FILM TABLETS PER DAY SOLD: 05/07/2019 [facility] 2-0.5 mg 04/09/2019 12:00:00 AM EST film 30 PLACE 1 FILM UNDER THE TONGUE IN THE MORNING MAXIMUM DAILY DOSE = [address] 1 FILM UNDER THE TONGUE IN THE MORNING MAXIMUM DAILY DOSE = 1 FILM SOLD: 04/10/2019 [facility] 25 mg 04/08/2019 12:00:00 AM EST tablet 60 TAKE ONE TABLET BY MOUTH THREE TIMES A DAY AND 3 TABLETS AT BEDTIME NEEDED TAKE ONE TABLET BY MOUTH THREE TIMES A DAY AND 3 TABLETS AT BEDTIME NEEDED SOLD: 04/08/2019 [facility] 25 mg 04/08/2019 12:00:00 AM EST tablet 60 TAKE ONE TABLET BY MOUTH THREE TIMES A DAY AND 3 TABLETS AT BEDTIME NEEDED TAKE ONE TABLET BY MOUTH THREE TIMES A DAY AND 3 TABLETS AT BEDTIME NEEDED SOLD: 05/16/2019 [facility] 25 mg 04/08/2019 12:00:00 AM EST tablet 60 TAKE ONE TABLET BY MOUTH THREE TIMES A DAY AND 3 TABLETS AT BEDTIME NEEDED TAKE ONE TABLET BY MOUTH THREE TIMES A DAY AND 3 TABLETS AT BEDTIME NEEDED SOLD: 04/29/2019 [facility] 8-2 mg 04/08/2019 12:00:00 AM EST film 45 PLACE 1 1/2 FILM UNDER THE TONGUE IN THE MORNING MAXIMUM DAILY DOSE = 1 1/[address] 1 1/2 FILM UNDER THE TONGUE IN THE MORNING MAXIMUM DAILY DOSE = 1 1/2 FILMS SOLD: 04/08/2019 [facility] 8-2 mg 03/29/2019 12:00:00 AM EST film 15 PLACE 1 AND 1/2 FILMS UNDER THE TONGUE EVERY MORNING MAXIMUM DAILY DOSE = 1 AND 1/[address] 1 AND 1/2 FILMS UNDER THE TONGUE EVERY MORNING MAXIMUM DAILY DOSE = 1 AND 1/5 FILMS SOLD: 03/30/2019 [facility] 25 mg 02/16/2019 12:00:00 AM EST tablet 60 TAKE 1 TABLET BY MOUTH THREE TIMES A DAY AND 3 TABLETS AT BEDTIME NEEDED TAKE 1 TABLET BY MOUTH THREE TIMES A DAY AND 3 TABLETS AT BEDTIME NEEDED SOLD: 06/03/2019 [facility] Insurance Providers Payer name Policy type / Coverage type Policy ID Covered democrat ID Covered democrat's relationship to rizvi Policy Rizvi Plan Information [facility] COMMUNITY PLAN [facility] [id number] SP [id number] [facility] PLAN [facility] [id number] SP [id number] Managed Care - [facility] Community Plan P [id number] S [id number] Medicaid S [id number] S [id number] Managed Care - [facility] Community Plan P [id number] S [id number] Medicaid S [id number] S [id number] SP [id number] Managed Care - Community Plan [facility] P [id number] S [id number] [facility] COMMUNITY PLAN [facility] [id number] SP [id number] MEDICAID [id number] SP [id number] MEDICAID M [id number] S [id number] [facility](MCAID) O [id number] S [id number] MEDICAID [id number] SP [id number] [employer] COMMUNITY PLAN MCDHMO [id number] SP [id number] [facility] I [id number] Self [id number] [facility] [id number] SP [id number] [employer] COMMUNITY PLAN XIX [id number] 18 [id number] [facility] Health Maintenance Organization (HMO) [id number] Self [id number] [employer] [id number] U [id number] UN COMMUNITY PLAN MCDO [id number] SP [id number] MEDICAID [id number] SP [id number] SELF PAY ONLY UNAVAILABLE SP UNAV AILABLE [place] [employer] [id number] SP [id number] [employer] DOES NOT APPLY THIS VISIT SP DOES NOT APPLY THIS VISIT SELF PAY UNAVAILABLE UNAVAILA BLE HMO BLUE [id number] SP [id number] BLUE [employer] PLAN [id number] [id number] Cigna/Conn Gen/[employer] Medigap Part B Self [facility] Health Maintenance Organization (HMO) Self HMO BLUE [id number] [id number] O BLUE [id number] SP [id number] [employer] [id number] [id number] Problems, Conditions, and Diagnoses Code Display Name Description Problem Type Effective Dates Data Source(s) Z34.80 care Supervision of other normal P roblem 04/30/2020 12:00:00 AM EST eCW1 ([facility]) D50.9 Iron deficiency anemia Iron deficiency anemia Problem 03/09/2020 12:00:00 AM EST eCW1 ([facility]) Z34.80 care Supervision of other normal P roblem 01/20/2020 12:00:00 AM EDT eCW1 ([facility]) Z34.80 care Supervision of other normal P roblelaila 10/21/2019 12:00:00 AM EDT eCW1 ([facility]) 787.02 Nausea Nausea 10/03/2019 01:25:33 PM ED T [facility] Surgeries/Procedures Procedure Description Date Indications Data Source(s) Immunization: Boostrix 0.5mL IM (TDAP) 04/06/2020 12:0 0:00 AM EST eCW1 ([facility]) INFLUENZA VIRUS VACC SPLIT PRSRV FREE 3 YRS/> IM 02/17 12:00:00 AM EST eCW1 ([facility]) Results ID Date Data Source GROUP B STREP CULTURE 04/23/2020 12:00:00 AM EST eCW1 ([facility]) Name Value Range Interpretation Code Description Data Aneta rce(s) Supporting Document(s) GROUP B STREP CULTURE eCW1 ([facility]) ID Date Data Source Glucose Challenge Test 1 Hour 03/09/2020 12:00:00 AM EST eCW 1 ([facility]) Name Value Range Interpretation Code Description Data Aneta rce(s) Supporting Document(s) 103 LESS THAN 140 GLUCOSE CHALLENGE TEST 1 HOUR eCW1 ([facility]) ID Date Data Source CBC - Complete Blood Count 03/09/2020 12:00:00 AM EST eCW1 ( [facility]) Name Value Range Interpretation Code Description Data Aneta rce(s) Supporting Document(s) 8.6 4.0-10.0 WHITE BLOOD COUNT eCW1 ([facility]) 10.1 12.0-15.5 HEMOGLOBIN eCW1 ([facility]) 3.30 4.00-5.40 RED BLOOD COUNT eCW1 ([facility]) 31.0 36.0-47.0 HEMATOCRIT eCW1 ([facility]) 93.9 80.0-96.0 MEAN CORPUSCULAR VOLUME e CW1 ([facility]) 14.5 11.5-14.5 RED CELL DISTRIBUTION WID TH eCW1 ([facility]) 32.6 32.0-36.5 MEAN CORPUSCULAR HGB CONC eCW1 ([facility]) 30.6 27.0-33.0 MEAN CORPUSCULAR HEMOGLOB IN eCW1 ([facility]) 193 150-450 PLATELET COUNT, AUTOMATED eCW1 ([facility]) ID Date Data Source [id number] 10/03/2019 11:08:55 AM EDT [facility] Measurements & CalculationsHeight: 64 inches (5 ft. 4 in.) 162.56 cm Weight: 197.2 pounds 89.64 kg Body Mass Index (BMI): 33.97BMI Interpretation: ObeseBody Surface Area (BSA): 1.95Weight Management Education Done (Nutrition/Physical Activity)Vital SignsTemperature: 98.3FPulse Rate: 77 beats/minuteRespiratory Rate: 18 respirati ons/minuteBlood Pressure: 121/71 Vital Signs performed by: Autumn العلي MA, October 03, 2019 11:12 AMInitial Intake Information From: patientRoom #: 15Infectious Disease / Travel ScreeningRecent travel for you or any close contacts? NoHave you had any close contact with anyone diagnosed with or under investigation for COVID-19 (coronavirus)? NoFever? NoRespiratory symptoms: cough, cold, congestion, shortness of breath, difficulty breathing? NoLoss of smell? NoLoss of taste? NoSmoking, Tobacco, Vaping or Smoke Exposure StatusSmoke Status: current every day smokerTobacco Use: YesAdv to Quit: YesDo you vape? NoMenstrual HistoryLast Menstrual Period (LMP): 08/18/2019Any possibility of ? YesComments: 6 weeks Healthcare HistorySince your last office visit...Have you been admitted to the hospital? NoHave you been to an emergency room (ER) or urgent care clinic? Yes - [facility]Have you seen another healthcare provider? Yes - [facility] Have you seen a dentist? NoIntake performed by: Autumn العلي MA, October 03, 2019 11:09 AMRate Your HealthIn general, would you say your health is? GoodPain AssessmentAre you currently having any pain which... You would like your provider to address? No Affects your activity level? NoDepression Screening - PHQ-2Over the last two weeks, have you... Had little interest or pleasure in doing things? Not at all Been feeling down, depressed, or hopeless? Not at all PHQ-2 Score: 0Anxiety Screening - JADA-2Over the last two weeks, have you been... Feeling nervous, anxious, or on edge? Not at all Unable to stop or control worrying? Not at all JADA-2 Score: 0Screening, Brief Intervention, & Referral to Treatment (SBIRT)Pre-Screening Questions How many times have you have 4 or more drinks in a day? 0How many times have you used an illegal drug or used a prescription medication for a non-medical reason? 0Performed by: Autumn العلي MA, October 03, 2019 11:09 AMPatient History Medical History:No known medical historySurgical History:No known surgical historyFamily History:Diabetes (Father, Paternal Grandfather)Social/Personal History: Advised to Quit/Tobacco Education: YesChief Complainter f/u History of Present Illness (HPI)Seen in ER for what she thought was withdrawal from Chantix and Hydroxyzine (recently found out she was ) and switch from Suboxone to Subutex.Feeling better now. Still some nausea but vomiting has resolved and she is able to eat and drink OK now.She was prescribed Diclegis but her insurance will not cover this. She called the ER to let them know but they did not make any changes. Has appointment with OB next month.Had some abdominal pain yesterday.HPI performed by: Venakta Lipscomb MD, October 03, 2019 11:21 AMTransitions of Care InboundProblem ReviewProblem List was reviewed and/or updated during this visit.Medication Reconciliation & ReviewMedication List was reviewed and/or updated during this visit, including review of any [id number] medications, herbal therapies, and/or supplem ents.Allergy ReviewAllergy List was reviewed and/or updated during this visit.Adult Preventive CareScreening Tobacco Screening: Smoking Status: current every day smoker (10/03/2019) Tobacco Use: Currently (10/03/2019) Advised to Quit: Yes (10/03/2019)Labs/Meds/Other Counseling-Nutrition and Physical Activity:BMI Interpretation: Obese (10/03/2019) Counseling: Done (10/03/2019) Physical Activity: Done (10/03/2019)Cancer Screening Pap Smear/HPV TestingReviewed: Previous Comments: [facility] 2.5 years 09/14/2018 (09/14/2018)Physical ExamGeneral Appearance: well nourished, well hydrated, no acute distressRespiratory, Auscultation: clear to auscultation bilaterally; no rales, rhonchi, or wheezesRespiratory, Effort: no intercostal retractions or use of accessory musclesCardiovascular, Auscultation: S1, S2 audible; no murmur, rub, or gallop; RRRAbdomen: soft, non-tender, no masses, bowel sounds normalGait & Station: normalSkin, Inspection: no rashes, lesions, or ulcerationsOrientation: oriented to time, place, and personMood & Affect: no depression, anxiety, or agitationJudgment & Insight: intactCare Management Plan Transitions of CareInboundRate Your HealthIn general, would you say your health is? GoodAssessment & Plan Problems:Added: Nausea (ICD-787.02) (VSC76-T71.0) Assessment: Instructions: related, possibly due to changes in medications and possibly hyperemesis.Improved.I will resubmit the Diclegis and we will go from there. If this is not covered we will ask her to consider self pay or ask what is covered.Recheck with OB and mental health as scheduled and here as needed.Patient Instructions/Care Plan: Nausea: related, possibly due to changes in medications and possibly hyperemesis.Improved.I will resubmit the Diclegis and we will go from there. If this is not covered we will ask her to consider self pay or ask what is covered.Recheck with OB and mental health as scheduled and here as needed. Plan developed in collaboration with patient and/or familyMedications:DICLEGIS 10-10 MG ORAL TABLET DELAYED RELEASEBUPRENORPHINE HCL-NALOXONE HCL FILMBENADRYL ALLERGY CAPSULEMedication Changes:Added: BENADRYL ALLERGY CAPSULE-1/2 tab at nightBUPRENORPHINE HCL- NALOXONE HCL FILMNew Prescription:DICLEGIS 10-10 MG ORAL TABLET DELAYED RELEASE- 2 po qd Qty: 10[Tablet] Refills: 2 Method: ElectronicRemoved:MINOCYCLINE HCL 100 MG ORAL CAPSULE-1 po bid for 10 days then decrease to once daily for maintenance/ prevention, SUBOXONE 8-2 MG SUBLINGUAL FILMAllergies:No Known Allergies (updated 09/14/2018) Orders:Adult - Ofc Vst, EST, Level III [CPT- 07796] Medications:DICLEGIS 10-10 MG ORAL TABLET DELAYED RELEASE (DOXYLAMINE- PYRIDOXINE) 2 po qd #10[Tablet] x 2 Route:ORAL Entered and Authorized by: Venkata Lipscomb MD Method used: Electronically to [facility]* (nkyxxb) [id number] [place] [address] Note to Pharmacy: Route: ORAL; RxID: [id number] signed by Venkata Lipscomb MD on 10/03/2019 at 1:25 PM Name Value Range Interpretation Code Description Data Aneta rce(s) Supporting Document(s) Procedure Social History Code Duration Value Status Description Data Source(s ) Smoking 05/14/2020 12:00:00 AM EST Current Smoker completed Curre nt Smoker eCW1 ([facility]) Smoking 05/14/2020 12:00:00 AM EST Current Smoker completed Curre nt Smoker eCW1 ([facility]) Smoking 04/30/2020 12:00:00 AM EST Current Smoker completed Curre nt Smoker eCW1 ([facility]) Smoking 04/18/2020 12:00:00 AM EST Current Smoker completed Curre nt Smoker eCW1 ([facility]) Smoking 03/30/2020 12:00:00 AM EST Current Smoker completed Curre nt Smoker eCW1 ([facility]) Smoking 02/18/2020 12:00:00 AM EST Current Smoker completed Curre nt Smoker eCW1 ([facility]) Smoking 02/18/2020 12:00:00 AM EST Current Smoker completed Curre nt Smoker eCW1 ([facility]) Smoking 02/18/2020 12:00:00 AM EST Current Smoker completed Curre nt Smoker eCW1 ([facility]) Smoking 02/18/2020 12:00:00 AM EST Current Smoker completed Curre nt Smoker eCW1 ([facility]) Smoking 01/21/2020 12:00:00 AM EDT Current Smoker completed Curre nt Smoker eCW1 ([facility]) Vital Signs ID Date Data Source UNK Name Value Range Interpretation Code Description Data Source(s) Diastolic blood pressure 60 mm[Hg] 60 mm[Hg] eCW1 ([facility]) Systolic blood pressure 118 mm[Hg] 118 mm[Hg] e CW1 ([facility]) Body mass index (BMI) [Ratio] 33.987 kg/m2 33.9 87 kg/m2 W1 ([facility]) Body height 64 [in_i] 64 [in_i] eCW1 ([facility]) Body weight 89.81 kg 89.81 kg W1 ([facility]) Body weight 198 [lb_av] 198 [lb_av] eCW1 ([facility]) Diastolic blood pressure 62 mm[Hg] 62 mm[Hg] eCW1 ([facility]) Systolic blood pressure 112 mm[Hg] 112 mm[Hg] e CW1 ([facility]) Body mass index (BMI) [Ratio] 33.643 kg/m2 33.6 43 kg/m2 W1 ([facility]) Body height 64 [in_i] 64 [in_i] eCW1 ([facility]) Body weight 196 [lb_av] 196 [lb_av] eCW1 ([facility]) Diastolic blood pressure 62 mm[Hg] 62 mm[Hg] eCW1 ([facility]) Systolic blood pressure 112 mm[Hg] 112 mm[Hg] e CW1 ([facility]) Body mass index (BMI) [Ratio] 32.957 kg/m2 32.9 57 kg/m2 eCW1 ([facility]) Body height 64 [in_i] 64 [in_i] eCW1 ([facility]) Body weight 87.09 kg 87.09 kg eCW1 ([facility]) Body weight 192 [lb_av] 192 [lb_av] eCW1 ([facility]) Diastolic blood pressure 62 mm[Hg] 62 mm[Hg] eCW1 ([facility]) Systolic blood pressure 104 mm[Hg] 104 mm[Hg] e CW1 ([facility]) Body mass index (BMI) [Ratio] 33.403 kg/m2 33.4 03 kg/m2 eCW1 ([facility]) Body height 64 [in_i] 64 [in_i] eCW1 ([facility]) Body weight 194.6 [lb_av] 194.6 [lb_av] eCW1 ([facility]) Diastolic blood pressure 60 mm[Hg] 60 mm[Hg] eCW1 ([facility]) Systolic blood pressure 120 mm[Hg] 120 mm[Hg] e CW1 ([facility]) Body mass index (BMI) [Ratio] 31.79 kg/m2 31.79 kg/m2 W1 ([facility]) Body height 64 [in_i] 64 [in_i] eCW1 ([facility]) Body weight 84.01 kg 84.01 kg eCW1 ([facility]) Body weight 185.2 [lb_av] 185.2 [lb_av] eCW1 ([facility]) Diastolic blood pressure 62 mm[Hg] 62 mm[Hg] eCW1 ([facility]) Systolic blood pressure 120 mm[Hg] 120 mm[Hg] e CW1 ([facility]) Body mass index (BMI) [Ratio] 30.828 kg/m2 30.8 28 kg/m2 eCW1 ([facility]) Body height 64 [in_i] 64 [in_i] eCW1 ([facility]) Body weight 81.47 kg 81.47 kg eCW1 ([facility]) Body weight 179.6 [lb_av] 179.6 [lb_av] eCW1 ([facility]) Diastolic blood pressure 54 mm[Hg] 54 mm[Hg] eCW1 ([facility]) Systolic blood pressure 100 mm[Hg] 100 mm[Hg] e CW1 ([facility]) Body mass index (BMI) [Ratio] 31.755 kg/m2 31.7 55 kg/m2 eCW1 ([facility]) Body height 64 [in_i] 64 [in_i] eCW1 ([facility]) Body weight 185 [lb_av] 185 [lb_av] eCW1 ([facility]) Diastolic blood pressure 72 mm[Hg] 72 mm[Hg] eCW1 ([facility]) Systolic blood pressure 124 mm[Hg] 124 mm[Hg] e CW1 ([facility]) Body mass index (BMI) [Ratio] 33.815 kg/m2 33.8 15 kg/m2 eCW1 ([facility]) Body height 64 [in_i] 64 [in_i] eCW1 ([facility]) Body weight 197 [lb_av] 197 [lb_av] eCW1 ([facility]) Patient Treatment Plan of Care Planned Activity Planned Date Details Description Data Source (s) New in 2011. IIV4 02/18/2020 12:08:00 PM EST eCW1 ([facility]) New in 2011. IIV4 02/18/2020 12:08:00 PM EST eCW1 ([facility]) New in 2011. IIV4 02/18/2020 12:08:00 PM EST eCW1 ([facility]) New in 2011. IIV4 02/18/2020 12:08:00 PM EST eCW1 ([facility]) New in 2011. IIV4 02/18/2020 12:08:00 PM EST eCW1 ([facility]) New in 2011. IIV4 02/18/2020 12:08:00 PM EST eCW1 ([facility]) New in 2011. IIV4 02/18/2020 12:08:00 PM EST eCW1 ([facility]) New in 2011. IIV4 02/18/2020 12:08:00 PM EST eCW1 ([facility]) New in 2011. IIV4 02/18/2020 12:08:00 PM EST eCW1 ([facility]) ferrous sulfate 325 MG Oral Tablet 03/09/2020 12:00:00 AM EST eCW1 ([facility]) ferrous sulfate 325 MG Oral Tablet 03/09/2020 12:00:00 AM EST eCW1 ([facility]) Ondansetron 4 MG Disintegrating Oral Tablet 01/24/2020 12:00:00 AM EDT eCW1 ([facility]) Ondansetron 4 MG Disintegrating Oral Tablet 01/24/2020 12:00:00 AM EDT eCW1 ([facility]) Ondansetron 4 MG Disintegrating Oral Tablet 01/24/2020 12:00:00 AM EDT eCW1 ([facility]) Ondansetron 4 MG Disintegrating Oral Tablet 01/24/2020 12:00:00 AM EDT eCW1 ([facility]) Ondansetron 4 MG Disintegrating Oral Tablet 01/24/2020 12:00:00 AM EDT eCW1 ([facility])
[2020-05-23] MEDS ORDERED: LACTATED RINGER'S 1000 ML IV STA ×2 (07:29→08:57)
[2020-05-23] MEDS ORDERED: METH10SO PO (07:37)
[2020-05-23] MEDS ORDERED: PENICILLIN G POTASSIUM IV 5 MU in D5W MINI-BAG PLUS 100 ML IV STA (08:57)
[2020-05-23 09:08] LABS: HEMATOCRIT 36.9 % (36.0-47.0); HEMOGLOBIN 11.9 g/dl (12.0-15.5); MEAN CORPUSCULAR HEMOGLOBIN 27.8 pg (27.0-33.0); MEAN CORPUSCULAR HGB CONC 32.2 g/dl (32.0-36.5); MEAN CORPUSCULAR VOLUME 86.2 fl (80.0-96.0); PLATELET COUNT, AUTOMATED 155 10^3/uL (150-450); RED BLOOD COUNT 4.28 10^6/uL (4.00-5.40); WHITE BLOOD COUNT 9.8 10^3/uL (4.0-10.0)
--- NOTE | 2020-05-23 10:04 | HPEPDOC ---
Obstetrical History & Physical General Date of Admission May 23, 2020 at 07:09 History of Present Illness 25-year-old at 39+6 weeks gestation. Presents for an induction of labor. Indication for induction: elective, non-medically indicated. She denies vaginal bleeding, loss of fluid or painful, frequent uterine contractions. She reports regular movement. She denies headache, visual changes, right upper quadrant pain, shortness of breath or chest pain. course: 1. Former opioid addiction; controlled with Methadone 55mg PO 2. Former smoker; stopped during this PMH: opioid addiction (in recovery) SH: none Meds: vitamin, Methadone 55mg PO daily All: [employer] PROF[employer]AL: No STI or dysplasia OB: Term x 2; both uncomplicated. largest: 6lbs 9oz. Sochx: No tobacco, alcohol or drug use FamHx: DM2, CVD labs: Blood type O+, antibody screen negative, HepBsAg neg, HIV neg, rubella immune, Hep C antibody negative, RPR nonreactive, CT/GC neg, urine culture negative, 1 hour glucose challenge test: 103 , GBS POSITIVE. Imagin12/30/19: normal anatomy, no placental abnormalities. 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 BREAST: . ABDOMEN: Gravid and non-tender to touch. FETUS: Is vertex (VTX) by sterile vaginal examination (SVE), fetus is vertex (VTX) by Harry. HEART RATE: Regular rate and rhythm. LUNGS: Clear to auscultation (CTA). EXTREMITIES: No edema. No clonus. SVE: 1cm/75%/-3, cephalic, intact. EFM: Cat I FHR [place]: rare ctx Vital Signs/I&O Vital Signs Date Time Temp Pulse Resp B/P (MAP) Pulse Ox O2 Delivery O2 Flow Rate FiO2 05/23/20 07:32 97.4 79 18 123/73 (90) Laboratory Data [facility] Laboratory Tests 2 05/23/20 07:17: Serology Scanned Report Hepatitis B Testing 05/23/20 08:58: Nucleated Red Blood Cells % (auto) 0.0 CBC/BMP Laboratory Tests 05/23/20 08:58 Assessment/Plan Assessment 25-year old at 39+6 weeks gestation. Dx: Full term gestation; elective IOL. Reassuring maternal and status. Plan Admit and orient. Routine labs/orders Group B Streptococcus (GBS) positive. GBS prophylaxis with penicillin Start with cervical ripening via misoprostol 50mcg SL every 4-6 hours until cervix is favorable. Counseled on Pitocin and induction of labor (IOL). Mode of delivery plan: ; as indicated. LORENZO CASTRO DO May 23, 2020 10:04
[2020-05-23] MEDS: miSOPROStol 50MCG 1/2 TABLET SL SCH ×2 (10:24→14:28)
[2020-05-23] MEDS: LR 1,000 ML IV SCH ×2 (10:24→17:14)
[2020-05-23] MEDS: PENICILLIN G POTASSIUM IV 2.5 MU in IV 1 EA IV SCH ×3 (13:34→22:46)
--- NOTE | 2020-05-23 18:20 | IPNPDOC ---
Obstetrical Progress Note Date of Service May 23, 2020 Subjective Patient feeling more uncomfortable with contractions. Requesting epidural. No LOF, VB. Objective Vital Signs Date Time Temp Pulse Resp B/P (MAP) Pulse Ox O2 Delivery O2 Flow Rate FiO2 05/23/20 13:38 66 18 130/59 (82) 05/23/20 07:32 97.4 Assessment Heart Rate Tracing: Category I Tocometer Contractions: Yes Frequency: every 2-5 min. Sterile Vaginal Examination Dilation: 4 cm Effacement (%): 70% Station: -2 Cervical Consistency: Soft Cervical Position: Anterior Postion/Presentation: Cephalic presentation Assessment and Plan Status: Reassuring Group B Streptococcus: Positive (treated) Anticipate: Vaginal Delivery Additional Comments Reassuring maternal and status. Early active labor. Anesthesia notified of patient's request. IV bolus started. LORENZO CASTRO DO May 23, 2020 18:20
[2020-05-23] MEDS ORDERED: OXYTOCIN DRIP 30 UNITS in IV 1 EA IV SCH (18:30)
[2020-05-23] MEDS ORDERED: FENTANYL 2MCG/ML ROPIVACAINE 0.2% IN 0.9% NACL 100ML IVBAG As Ordered ONE (19:49)
[2020-05-23] MEDS ORDERED: NALOXONE INJ 0.4MG/1ML VIAL (J2310 PER 1MG) IV PRN (22:00)
[2020-05-23] MEDS ORDERED: EPIDURAL/PCA KEYS XX PRN (22:00)
[2020-05-23] MEDS ORDERED: EPIDURAL COMMENT XX SCH (22:00)
[2020-05-23] MEDS ORDERED: LACTATED RINGER'S 1000 ML IV PRN (22:00)
[2020-05-23] MEDS ORDERED: ePHEDrine SULFATE 25 MG/5 ML(5MG/ML) SYRINGE IV PRN (22:00)
[2020-05-23] MEDS ORDERED: REFRIGERATOR IV KEYS XX PRN (22:00)
[2020-05-23] MEDS ORDERED: diphenhydrAMINE 50MG/ML VIAL (J1200) IV PRN (22:00)
[2020-05-23] MEDS ORDERED: FENTANYL/ROPIVACAINE/NACL BAG 100 ML EPIDURAL SCH (22:00)
[2020-05-23] MEDS: ONDANSETRON 4MG/2ML VIAL IV PRN (22:45)
[2020-05-24] VITALS (27 sets, daily range): BP systolic 93–159; BP diastolic 50–84
[2020-05-24] MEDS: PENICILLIN G POTASSIUM IV 2.5 MU in IV 1 EA IV SCH ×2 (04:13→05:00)
[2020-05-24] MEDS: ONDANSETRON 4MG/2ML VIAL IV PRN (04:40)
--- NOTE | 2020-05-24 04:52 | IPNPDOC ---
Obstetrical Progress Note Date of Service May 24, 2020 Subjective Patient comfortable with epidural. +LOF/SROM, clear. Objective Vital Signs Date Time Temp Pulse Resp B/P (MAP) Pulse Ox O2 Delivery O2 Flow Rate FiO2 05/24/20 00:25 60 95/51 (66) 05/23/20 23:00 98.2 20 Assessment Heart Rate Tracing: Category I Tocometer Frequency: every 2-5 min. Sterile Vaginal Examination Dilation: 6 cm Effacement (%): 100% Station: -1, 0 Cervical Consistency: Soft Cervical Position: Anterior Postion/Presentation: Cephalic presentation Assessment and Plan Status: Reassuring Group B Streptococcus: Positive Anticipate: Vaginal Delivery Additional Comments Active labor. Reassuring maternal and status. Continue LORENZO Whitman DO May 24, 2020 04:52
[2020-05-24] MEDS ORDERED: OXYTOCIN DRIP 30 UNITS in IV 1 EA IV SCH (06:58)
[2020-05-24] MEDS: LR 1,000 ML IV SCH ×2 (06:58→14:58)
[2020-05-24] MEDS ORDERED: ONDANSETRON 4MG/2ML VIAL IV PRN (07:00)
[2020-05-24] MEDS ORDERED: ACETAMINOPHEN TAB 650MG DOSE (2X325MG) PO PRN (07:00)
[2020-05-24] MEDS ORDERED: DOCUSATE SODIUM 100MG CAPSULE PO PRN (07:00)
[2020-05-24] MEDS ORDERED: ACETAMINOPHEN 500 MG TAB PO PRN (07:00)
[2020-05-24] MEDS ORDERED: IBUPROFEN 600MG TAB PO PRN (07:00)
[2020-05-24] MEDS ORDERED: MEASLES,MUMPS,RUBELLA VACCINE INJ (MMR-II) (90707) SC SCH (07:00)
[2020-05-24] MEDS ORDERED: BENZOCAINE 20% HEMORRHOIDAL OINTMENT 28GM TUBE TOP PRN (07:00)
[2020-05-24] MEDS ORDERED: RHOGAM 300 MCG (1500 IU) INJ (J2790) IM SCH (07:00)
--- NOTE | 2020-05-24 07:07 | DNPDOC ---
[facility] Delivery Note Delivery Note DATE OF DELIVERY: 05/24/20 TIME OF DELIVERY: 0648 Spontaneous vaginal delivery. 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 Gus Mcmillan DO FACOG ANESTHESIA: epidural LACERATION: none ESTIMATED BLOOD LOSS: 200 mL. FINDINGS: 6 pound 10 ounce (3010g) male (name: Ray), Score 7 and 9. DELIVERY SUMMARY: The active phase and second stage of labor progressed in normal fashion. She received Pitocin augmentation throughout her labor course. She received a full course of GBS prophylaxis. The head delivered in the EMILIANO position, and restituted LOT. No nuchal cord was noted. The anterior shoulder delivered with gentle downward guidance and the remainder of the body delivered with ease. The baby was placed on the patient's chest. Delayed cord clamping occurred for approximately 1 minute. The cord was then doubly clamped and cut. IV Pitocin was bolused to actively manage the third stage of labor. The placenta delivered intact without any difficulty within 10 minutes of delivery. The uterine fundus was noted to be firm and 2 cm below the umbilicus. The cervix, vagina, vulva and perineum were inspected. Excellent hemostasis was noted. Sponge, needle and instrument counts were correct per protocol. DO MILLY Tucker JONATHAN R. DO May 24, 2020 07:07
[2020-05-24] MEDS ORDERED: PILL CUTTER 1 EACH XX PRN (08:00)
[2020-05-24] MEDS: IBUPROFEN 800 MG TAB PO PRN (08:35)
[2020-05-24] MEDS: METHADONE 10 MG TAB (S0109) PO SCH (08:55)
[2020-05-24] MEDS: NICOTINE 14 MG/24 HR TRANSDERMAL TD SCH (08:56)
[2020-05-24] MEDS: PRENATAL VITAMINS CHEWABLE TABLET PO SCH (08:56)
[2020-05-24] MEDS ORDERED: METHADONE 10 MG TAB (S0109) PO SCH (09:00)
[2020-05-25 06:00] VITALS: BP 123/65
--- NOTE | 2020-05-25 07:45 | IPNPDOC ---
Progress Note Date of Service: May 25, 2020 Progress Note SUBJECT: Status post . She has been ambulating, voiding spontaneously without issue and tolerating regular diet. Lochia decreasing/minimal. Pain is well-controlled. Denies headache, visual changes, right upper quadrant pain, shortness breath or chest pain. OBJECTIVE: VITAL SIGNS: Within normal limits, afebrile. Alert and oriented times three. Abdomen: Fundus firm at U-2. Soft, NTTP. ASSESSMENT: Status post uncomplicated spontaneous vaginal delivery. Vitals within normal limits, afebrile, hemodynamically stable with no evidence of infection. PLAN: Discharge to home today. Tylenol and Motrin for pain. Routine instructions/precautions reviewed. Routine PP visit in 6 weeks in clinic. VS, I&O, 24H, Fishbone Vital Signs/I&O Vital Signs Date Time Temp Pulse Resp B/P (MAP) Pulse Ox O2 Delivery O2 Flow Rate FiO2 05/25/20 06:00 97.5 72 18 123/65 (84) 97 Room Air I&O- Last 24 Hours up to 6 AM 05/25/20 06:00 Intake Total 88.7 ml Output Total 1000 ml Balance -911.3 ml LORENZO CASTRO DO May 25, 2020 07:45
[2020-05-25] MEDS: IBUPROFEN 800 MG TAB PO PRN (08:12)
[2020-05-25] MEDS: PRENATAL VITAMINS CHEWABLE TABLET PO SCH (08:12)
[2020-05-25] MEDS: METHADONE 10 MG TAB (S0109) PO SCH (08:12)
[2020-05-25] MEDS: NICOTINE 14 MG/24 HR TRANSDERMAL TD SCH (10:44)
== END 2020-05-25 18:45 | disposition home or self-care (01) | DRG 560 ==
LOC: M LDI 07:09 → M OBS 05-24 09:39
PROVIDERS: ADMIT Obstetrics & Gynecology; ATTEND Obstetrics & Gynecology
PROC: 10E0XZZ Delivery of Products of Conception, External Approach (ICD-10-PCS; principal; 2020-05-24)
DX: O99.824 Streptococcus B carrier state complicating childbirth (principal); Z87.891 Personal history of nicotine dependence; Z37.0 Single live birth; Z3A.39 39 weeks gestation of pregnancy

== ENCOUNTER → 2020-10-20 | Outpatient (REF) | payer OTHER ==
[~2020-10-20] MED LIST changes: +METH10SO PO
[2020-10-20 16:56] LABS: GC DNA AMPLIFICATION NEGATIVE (NEGATIVE)
== END ==
LOC: M SFHCWAGY 15:16
PROVIDERS: ATTEND Obstetrics & Gynecology
DX: N76.0 Acute vaginitis (principal)

== ENCOUNTER 2021-02-20 10:23 | Emergency (ER) | payer OTHER ==
[~2021-02-20] VITALS: Ht 162.6 cm; Wt 63.6 kg
[2021-02-20 10:24] VITALS: BP 126/82
--- OUTSIDE RECORDS SUMMARY | 2021-02-20 10:29 | CCD | Continuity of Care Document ---
Author Author [facility] Organization [facility] Address Unknown Phone Unavailable Care Team Providers Care Cable Splicing Technician Name Role Phone Raquel Noble MD Unavailable Unavailable Allergies, Adverse Reactions, Alerts Substance Reaction Status Criticality No Known Allergies Active No Information Medications Medication Instructions Dosage Effective Dates (start - stop) Sta tus Comments METHADONE HCL (unknown strength) take 1 tablet by oral route every 8 hours Not Available - Active Problems Condition Effective Dates (start - stop) Clinical Status C omments Encounter for test, result positive Human immunodeficiency virus [HIV] counseling Problems related to unwanted Encounter for elective termination of Encounter for oth general cnsl and advice on contraception Encntr screen for infections w sexl mode of transmiss Other sex counseling Procedures Procedure Date No Information Results Test Name Date and Time Measure Units Reference Range Abnormal Flag St atus Comments No Information Advance Directives Directive Yes / No Effective Date File Name No Information Encounters Encounter Description Practice Location Reason(s) For Visit Diagnose s Date Provider Providers Copied on Encounter [facility], [address] [place] [address], [id number], tel:[phone] Ikaria Hatteras No Information W ashleyms García. [address], [place], [id number], [place]. tel:[phone] [facility], [address] [place] [address], [id number], tel:[phone] [employer] [facility] Encounter for pregn brien test, result positiveHuman immunodeficiency virus [HIV] counselingProblems related to unwanted pregnancyEncounter for elective termination of pregnancyEncounter for oth general cnsl and advice on contraceptionEncntr screen for infections w sexl mode of transmissOther sex counseling Tim esparza. [address], [place], [id number], [place]. tel:[phone] Referring Provider: Sarah Dumont, [address], [place], [id number]. tel:[phone] Family History Family Member Diagnosis Age At Onset Maternal aunt Cancer, breast Mother Asthma Immunizations Vaccine Date Status Comments No Information Payers Payer name Insurance type Covered green party ID Authorization(s ) [facility] CI [id number] Social History Type Description Quantity Date Captured Comments Alcohol Use Details Unknown Caffeine Use Details Unknown Tobacco Use Status Smoking Status Heavy tobacco smoker Sex Female Vital Signs Date / Time: Height Weight BMI Pulse Rate Blood Pressure Temperatu re Respiratory Rate Body Surface Area Head Circumference BMI percentile Pulse Ox In haled Ox No Information Chief Complaint And Reason For Visit No Information Reason For Referral Reason For Referral No Information Plan Of Treatment Date Type Action Status Goal Tobacco cessation counseling com pleted History Of Present Illness Encounter Date Complaint History Of Present I llness No Information Functional Status Date Functional Assessment No Information Medications Administered Medication Instructions Dosage Effective Dates (start - stop) Sta tus Comments No Information Instructions Date Instruction Additional Informati on No Information Assessments Type Assessment Date No Information Goals Health Concern Goal Type Priority Status Date No Information Medical Equipment Description Device [place] Device Identifier Effective Joaquín es (start - stop) Status No Information Mental Status Date Cognitive Assessment No Information Health Concerns Observation Date No Information Concern Status Date No Information Physical Examination Exam Findings Details No Information
--- OUTSIDE RECORDS SUMMARY | 2021-02-20 10:29 | CCD ---
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 Name Role Phone Archie T Peyton PA Unavailable Unavailable Feola, T Peyton PA Unavailable Unavailable Feola, T Peyton PA Unavailable Unavailable Feola, T Peyton PA Unavailable Unavailable Feola, T Peyton PA Unavailable Unavailable Feola, T Peyton PA Unavailable Unavailable Feola, T Peyton PA Unavailable Unavailable Feola, T Peyton PA Unavailable Unavailable Feola, T Peyton PA Unavailable Unavailable Feola, T Peyton PA Unavailable Unavailable Feola, T Peyton PA Unavailable Unavailable Feola, T Peyton PA Unavailable Unavailable Feola, T Peyton PA Unavailable Unavailable Feola, T Peyton PA Unavailable Unavailable Feola, T Peyton PA Unavailable Unavailable Feola, T Peyton PA Unavailable Unavailable Feola, T Peyton PA Unavailable Unavailable Feola, T Peyton PA Unavailable Unavailable Feola, T Peyton PA Unavailable Unavailable Feola, T Peyton PA Unavailable Unavailable Feola, T Peyton PA Unavailable Unavailable Feola, T Peyton PA Unavailable Unavailable Feola, T Peyton PA Unavailable Unavailable Feola, T Peyton PA Unavailable Unavailable Feola, T Peyton PA Unavailable Unavailable Feola, T Peyton PA Unavailable Unavailable Feola, T Peyton PA Unavailable Unavailable Feola, T Peyton PA Unavailable Unavailable Feola, T Peyton PA Unavailable Unavailable Feola, T Peyton PA Unavailable Unavailable Feola, T Peyton PA Unavailable Unavailable Feola, T Peyton PA Unavailable Unavailable Feola, T Peyton PA Unavailable Unavailable Feola, T Peyton PA Unavailable Unavailable Feola, T Peyton PA Unavailable Unavailable Feola, T Peyton PA Unavailable Unavailable Feola, T Peyton PA Unavailable Unavailable Feola, T Peyton PA Unavailable Unavailable Feola, T Peyton PA Unavailable Unavailable Feola, T Peyton PA Unavailable Unavailable Feola, T Peyton PA Unavailable Unavailable Green ENGINE ROOM HELPER ENGINE ROOM HELPER, Sarah Unavailable Unavailable Green ENGINE ROOM HELPER ENGINE ROOM HELPER, Sarah Unavailable Unavailable Green ENGINE ROOM HELPER ENGINE ROOM HELPER, Sarah Unavailable Unavailable Green ENGINE ROOM HELPER ENGINE ROOM HELPER, Sarah Unavailable Unavailable Green ENGINE ROOM HELPER ENGINE ROOM HELPER, Sarah Unavailable Unavailable Bhargav Noble MD Unavailable Unavailable Bhargav Noble MD Unavailable Unavailable Bhargav Noble MD Unavailable Unavailable Bhargav Noble MD Unavailable Unavailable Bhargav Noble MD Unavailable Unavailable Bhargav Noble MD Unavailable Unavailable Bhargav Noble MD Unavailable Unavailable Bhargav Noble MD Unavailable Unavailable Bhargav Noble MD Unavailable Unavailable Bhargav Noble MD Unavailable Unavailable Bhargav Noble MD Unavailable Unavailable Bhargav Noble MD Unavailable Unavailable Bhargav Noble MD Unavailable Unavailable Bhargav Noble MD Unavailable Unavailable Bhargav Noble MD Unavailable Unavailable Bhargav Noble MD Unavailable Unavailable Real, Bhargav García MD Unavailable Unavailable Real, Bhargav García MD Unavailable Unavailable Real, Bhargav García MD Unavailable Unavailable Real, Bhargav García MD Unavailable Unavailable Real, Bhargav García MD Unavailable Unavailable Real, Bhargav García MD Unavailable Unavailable Real, Bhargav García MD Unavailable Unavailable Real, Bhargav García MD Unavailable Unavailable Real, Bhargav García MD Unavailable Unavailable Real, Bhargav García MD Unavailable Unavailable Real, Bhargav García MD Unavailable Unavailable Real, Bhargav García MD Unavailable Unavailable Real, Bhargav García MD Unavailable Unavailable Real, Bhargav García MD Unavailable Unavailable Real, Bhargav García MD Unavailable Unavailable Real, Bhargav García MD Unavailable Unavailable Real, Bhargav García MD Unavailable Unavailable Real, Bhargav García MD Unavailable Unavailable Real, Bhargav García MD Unavailable Unavailable Real, Bhargav García MD Unavailable Unavailable Real, Bhargav García MD Unavailable Unavailable Real, Bhargav García MD Unavailable Unavailable Real, Bhargav García MD Unavailable Unavailable Real, Bhargav García MD Unavailable Unavailable Real, Bhargav García MD Unavailable Unavailable Real, Bhargav García MD Unavailable Unavailable Real, Bhargav García MD Unavailable Unavailable Real, Bhargav García MD Unavailable Unavailable Real, Bhargav García MD Unavailable Unavailable Real, Bhargav García MD Unavailable Unavailable Real, Bhargav García MD Unavailable Unavailable Real, Bhargav García MD Unavailable Unavailable Real, Bhargav García MD Unavailable Unavailable Real, Bhargav García MD Unavailable Unavailable Real, Bhargav García MD Unavailable Unavailable Real, Bhargav García MD Unavailable Unavailable Real, Bhargav García MD Unavailable Unavailable Eral, Bhargav García MD Unavailable Unavailable Real, Bhargav García MD Unavailable Unavailable Real, Bhargav García MD Unavailable Unavailable Real, Bhargav García MD Unavailable Unavailable Real, Bhargav García MD Unavailable Unavailable Real, Bhargav García MD Unavailable Unavailable Real, Bhargav García MD Unavailable Unavailable Real, Bhargav García MD Unavailable Unavailable Rael, Bhargav García MD Unavailable Unavailable Real, Bhargav García MD Unavailable Unavailable Real, Bhargav García MD Unavailable Unavailable Real, Bhargav García MD Unavailable Unavailable Real, Bhargav García MD Unavailable Unavailable Real, Bhargav García MD Unavailable Unavailable Real, Bhargav García MD Unavailable Unavailable Real, Bhargav García MD Unavailable Unavailable Real, Bhargav García MD Unavailable Unavailable Real, Bhargav García MD Unavailable Unavailable Real, Bhargav García MD Unavailable Unavailable Real, Bhargav García MD Unavailable Unavailable Real, Bhargav García MD Unavailable Unavailable Real, Bhargav García MD Unavailable Unavailable Real, Bhargav García MD Unavailable Unavailable Real, Bhargav García MD Unavailable Unavailable Real, Bhargav García MD Unavailable Unavailable Real, Bhargav García MD Unavailable Unavailable Bhargav Noble MD Unavailable Unavailable Bhargav Noble MD Unavailable Unavailable Bhargav Noble MD Unavailable Unavailable Re-disclosure Warning The records that [...] is protected by Article 27-F of the [facility] Public Health law. If you continue you may have access to information: Regarding HIV / AIDS; Provided by facilities licensed or operated by the [facility] Office of Mental Health; or Provided by the [facility] Office for People With Developmental Disabilities. If such information is present, then the following [facility] mandated warning applies: This information has been [...] law may result in a fine or half-way sentence or both. A general authorization for the release of medical or other information is NOT sufficient authorization for further disc losure. Family History Family Member Name Family Member Gender Family Member Status Date o f Status Description Data Source(s) Unknown Female Diagnosis 11/05/2020 12:00:00 AM EDT NextGen ([facility]) Unknown Unknown Problem MEDENT ([facility]) Unknown Unknown Problem MEDENT ([facility]) Unknown Unknown Problem MEDENT ([facility]) Encounters Encounter Providers Location Date Indications Data Source(s ) Outpatient Attender: Peyton CARMONA 11/09/2 021 08:27:21 PM EST - 02/16/2021 09:33:58 PM EST DocuTap ([facility] ) Unknown [address] [facility] [address] 01/18/2021 12:00:00 AM EDT eCW1 ([facility]) Attender: Raquel GENAO [place] 06/2020 11:08:00 AM EDT - 12/11/2020 11:08:00 AM EDT [facility] ([facility]) Unknown [address] [facility] [address] 11/25/2020 12:00:00 AM EDT eCW1 ([facility]) Attender: Raquel GENAO [place] 01/2021 02:55:00 PM EDT - 11/17/2020 02:55:00 PM EDT NextGen ([facility]) Attender: Raquel [place] 08/2020 11:02:00 AM EDT - 11/12/2020 11:02:00 AM EDT NextGen ([facility]) HCS Without Test Attender: Sarah Dumont ENGINE ROOM HELPER ENGINE ROOM HELPER BIRGIT [place] 11/05/2020 04:00:00 PM EDT - 11/05/2020 04:00:00 PM EDT Other sex counselingEncntr screen for infections w sexl mode of transmissEncounter for oth general cnsl and advice on contraceptionEncounter for elective termination of pregnancyProblems related to unwanted pregnancyHuman immunodeficiency virus [HIV] counselingEncounter for test, result positive NextGen ([facility]) Other sex counseling Encntr screen for infections w sexl mode of transmiss Encounter for oth general cnsl and advic e on contraception Encounter for elective termination of pr egnancy Problems related to unwanted Human immunodeficiency virus [HIV] couns eling Encounter for test, result pos itive Outpatient [address] [facility] [address] 10/20/2020 12:00:00 AM EDT eCW1 ([facility]) (WC ESTOB) [facility] Est OB [address] [place] [address] 05/21/2020 12:00:00 AM EST eCW1 ([facility]) (WC ESTOB) [facility] [address] [place] [address] 05/13/2020 12:00:00 AM EST eCW1 ([facility]) (WC ESTOB) [facility] [address] [place] [address] 05/06/2020 12:00:00 AM EST eCW1 ([facility]) (WC ESTOB) [facility] [address] [place] [address] 04/30/2020 12:00:00 AM EST eCW1 ([facility]) (WC ESTOB) [facility] [address] [place] [address] 04/23/2020 12:00:00 AM EST eCW1 ([facility]) (WC ESTOB) [facility] [address] [place] [address] 04/06/2020 12:00:00 AM EST eCW1 ([facility]) Unknown [address] [facility] [address] 03/09/2020 12:00:00 AM EST eCW1 ([facility]) [place] [address] [facility] [place] [address] 02/20/2020 12:00:00 AM EST eCW1 ([facility]) ( ESTOB) [facility] Est OB [address] [place] [address] 02/18/2020 12:00:00 AM EST eCW1 ([facility]) (WC ESTOB) [facility] Est OB [address] [place] [address] 01/21/2020 12:00:00 AM EDT eCW1 ([facility]) Immunizations Vaccine Date Status Description Data Source(s) Tdap 04/06/2020 02:23:00 PM EST completed e CW1 ([facility]) Tdap 04/06/2020 02:23:00 PM EST completed e CW1 ([facility]) Tdap 04/06/2020 02:23:00 PM EST completed e CW1 ([facility]) Tdap 04/06/2020 02:23:00 PM EST completed e CW1 ([facility]) Tdap 04/06/2020 02:23:00 PM EST completed e CW1 ([facility]) Tdap 04/06/2020 02:23:00 PM EST completed e CW1 ([facility]) Tdap 04/06/2020 02:23:00 PM EST completed e CW1 ([facility]) Tdap 04/06/2020 02:23:00 PM EST completed e CW1 ([facility]) Tdap 04/06/2020 02:23:00 PM EST completed e CW1 ([facility]) Medications Medication Brand Name Start Date Product Form Dose Route Admi nistrative Instructions Pharmacy Instructions Status Indications Reaction Description Data Source(s) Ibuprofen 800 MG Oral Tablet ibuprofen 800 mg tablet ibuprof en 800 mg tablet 11/05/2020 12:00:00 AM EDT completed 1 tab po every 8 hours prn NextGen ([facility]) Misoprostol 0.2 MG Oral Tablet misoprostol 200 mcg tab let misoprostol 200 mcg tablet 11/05/2020 12:00:00 AM EDT completed 4 tabs intravaginally within the next 48 hours NextGen ([facility]) 800 mg 11/05/2020 12:00:00 AM EDT tablet 10 TAKE ONE TABLET BY MOUTH EVERY 8 HOURS NEEDED TAKE ONE TABLET BY MOUTH EVERY 8 HOURS NEEDED SOLD: 11/06/2020 [facility] Ondansetron 4 MG Oral Tablet ondansetron HCl 4 mg tabl et ondansetron HCl 4 mg tablet 11/05/2020 12:00:00 AM EDT completed 1 tab po every 4 hours prn NextGen ([facility]) 4 mg 11/05/2020 12:00:00 AM EDT tablet 10 TAKE ONE TABLET BY MOUTH EVERY 4 HOURS NEEDED TAKE ONE TABLET BY MOUTH EVERY 4 HOURS NEEDED SOLD: 11/06/2020 [facility] Mifepristone 200 MG Oral Tablet [Mifeprex] Mifeprex 20 0 mg tablet Mifeprex 200 mg tablet 11/05/2020 12:00:00 AM EDT complete d mifepristone 200 MG Oral Tablet [Mifeprex] NextGen ([facility]) Metronidazole 500 MG Oral Tablet [Flagyl] Flagyl 500 MG Flag yl 500 MG 10/20/2020 12:00:00 AM EDT 1.0 {tablet} active F lagyl 500 MG eCW1 ([facility]) Metronidazole 500 MG Oral Tablet [Flagyl] Flagyl 500 MG Flag yl 500 MG 10/20/2020 12:00:00 AM EDT 1.0 {tablet} active F lagyl 500 MG eCW1 ([facility]) Metronidazole 500 MG Oral Tablet [Flagyl] Flagyl 500 MG Flag yl 500 MG 10/20/2020 12:00:00 AM EDT 1.0 {tablet} active F lagyl 500 MG eCW1 ([facility]) Metronidazole 500 MG Oral Tablet METRONIDAZOLE 10/20/2020 12:0 0:00 AM EDT tablet 14 TAKE ONE TABLET BY MOUTH TWICE A DAY FOR 7 DAYS TAKE ONE TABLET BY MOUTH TWICE A DAY FOR 7 DAYS SOLD: 10/20/2020 [facility] ferrous sulfate 325 MG Oral Tablet Ferrous Sulfate 325 (65 Fe) MG Ferrous Sulfate 325 (65 Fe) MG 03/09/2020 12:00:00 AM EST 1.0 {tablet} suspended Ferrous Sulfate 325 (65 Fe) MG e 1 ([facility]) ferrous sulfate 325 MG Oral Tablet Ferrous Sulfate 325 (65 Fe) MG Ferrous Sulfate 325 (65 Fe) MG 03/09/2020 12:00:00 AM EST 1.0 {tablet} suspended Ferrous Sulfate 325 (65 Fe) MG e CW1 ([facility]) ferrous sulfate 325 MG Oral Tablet Ferrous Sulfate 325 (65 Fe) MG Ferrous Sulfate 325 (65 Fe) MG 03/09/2020 12:00:00 AM EST 1.0 {tablet} suspended Ferrous Sulfate 325 (65 Fe) MG e 1 ([facility]) ferrous sulfate 325 MG Oral Tablet Ferrous Sulfate 325 (65 Fe) MG Ferrous Sulfate 325 (65 Fe) MG 03/09/2020 12:00:00 AM EST 1.0 {tablet} suspended Ferrous Sulfate 325 (65 Fe) MG e CW1 ([facility]) ferrous sulfate 325 MG Oral Tablet Ferrous Sulfate 325 (65 Fe) MG Ferrous Sulfate 325 (65 Fe) MG 03/09/2020 12:00:00 AM EST 1.0 {tablet} suspended Ferrous Sulfate 325 (65 Fe) MG e CW1 ([facility]) ferrous sulfate 325 MG Oral Tablet Ferrous Sulfate 325 (65 Fe) MG Ferrous Sulfate 325 (65 Fe) MG 03/09/2020 12:00:00 AM EST 1.0 {tablet} suspended Ferrous Sulfate 325 (65 Fe) MG e CW1 ([facility]) ferrous sulfate 325 MG Oral Tablet Ferrous Sulfate 325 (65 Fe) MG Ferrous Sulfate 325 (65 Fe) MG 03/09/2020 12:00:00 AM EST 1.0 {tablet} suspended Ferrous Sulfate 325 (65 Fe) MG e 1 ([facility]) ferrous sulfate 325 MG Oral Tablet Ferrous Sulfate 325 (65 Fe) MG Ferrous Sulfate 325 (65 Fe) MG 03/09/2020 12:00:00 AM EST 1.0 {tablet} suspended Ferrous Sulfate 325 (65 Fe) MG e CW1 ([facility]) ferrous sulfate 325 MG Oral Tablet Ferrous Sulfate 325 (65 Fe) MG Ferrous Sulfate 325 (65 Fe) MG 03/09/2020 12:00:00 AM EST 1.0 {tablet} suspended Ferrous Sulfate 325 (65 Fe) MG e CW1 ([facility]) ferrous sulfate 325 MG Oral Tablet Ferrous Sulfate 325 (65 Fe) MG Ferrous Sulfate 325 (65 Fe) MG 03/09/2020 12:00:00 AM EST 1.0 {tablet} active Ferrous Sulfate 325 (65 Fe) MG eCW1 ([facility]) ferrous sulfate 325 MG Oral Tablet Ferrous Sulfate 325 (65 Fe) MG Ferrous Sulfate 325 (65 Fe) MG 03/09/2020 12:00:00 AM EST 1.0 {tablet} active Ferrous Sulfate 325 (65 Fe) MG eCW1 ([facility]) 4 mg 02/27/2020 12:00:00 AM EST tablet,disintegrating [address] 1 TABLET ON THE TONGUE AND ALLOW TO DISSOLVE ONCE DAILY PLACE 1 TABLET ON THE TONGUE AND ALLOW TO DISSOLVE ONCE DAILY SOLD: 04/02/2020 [facility] 4 mg 02/27/2020 12:00:00 AM EST tablet,disintegrating [address] 1 TABLET ON THE TONGUE AND ALLOW TO DISSOLVE ONCE DAILY PLACE 1 TABLET ON THE TONGUE AND ALLOW TO DISSOLVE ONCE DAILY SOLD: 02/29/2020 [facility] Ondansetron 4 MG Disintegrating Oral Tablet Ondansetron 4 MG 01/24/2020 12:00:00 AM EDT 1.0 {tablet_on_the_tongue_and_allow_to_dissolve} active Ondansetron 4 MG eCW1 ([facility]) Ondansetron 4 MG Disintegrating Oral Tablet Ondansetron 4 MG 01/24/2020 12:00:00 AM EDT 1.0 {tablet_on_the_tongue_and_allow_to_dissolve} suspended Ondansetron 4 MG eCW1 ([facility]) Ondansetron 4 MG Disintegrating Oral Tablet Ondansetron 4 MG 01/24/2020 12:00:00 AM EDT 1.0 {tablet_on_the_tongue_and_allow_to_dissolve} active Ondansetron 4 MG eCW1 ([facility]) Ondansetron 4 MG Disintegrating Oral Tablet Ondansetron 4 MG 01/24/2020 12:00:00 AM EDT 1.0 {tablet_on_the_tongue_and_allow_to_dissolve} active Ondansetron 4 MG eCW1 ([facility]) Ondansetron 4 MG Disintegrating Oral Tablet Ondansetron 4 MG 01/24/2020 12:00:00 AM EDT 1.0 {tablet_on_the_tongue_and_allow_to_dissolve} active Ondansetron 4 MG eCW1 ([facility]) Ondansetron 4 MG Disintegrating Oral Tablet Ondansetron 4 MG 01/24/2020 12:00:00 AM EDT 1.0 {tablet_on_the_tongue_and_allow_to_dissolve} active Ondansetron 4 MG eCW1 ([facility]) Ondansetron 4 MG Disintegrating Oral Tablet Ondansetron 4 MG 01/24/2020 12:00:00 AM EDT 1.0 {tablet_on_the_tongue_and_allow_to_dissolve} active Ondansetron 4 MG eCW1 ([facility]) Ondansetron 4 MG Disintegrating Oral Tablet Ondansetron 4 MG 01/24/2020 12:00:00 AM EDT 1.0 {tablet_on_the_tongue_and_allow_to_dissolve} active Ondansetron 4 MG eCW1 ([facility]) Ondansetron 4 MG Disintegrating Oral Tablet Ondansetron 4 MG 01/24/2020 12:00:00 AM EDT 1.0 {tablet_on_the_tongue_and_allow_to_dissolve} active Ondansetron 4 MG eCW1 ([facility]) Ondansetron 4 MG Disintegrating Oral Tablet Ondansetron 4 MG 01/24/2020 12:00:00 AM EDT 1.0 {tablet_on_the_tongue_and_allow_to_dissolve} active Ondansetron 4 MG eCW1 ([facility]) Ondansetron 4 MG Disintegrating Oral Tablet Ondansetron 4 MG 01/24/2020 12:00:00 AM EDT 1.0 {tablet_on_the_tongue_and_allow_to_dissolve} active Ondansetron 4 MG eCW1 ([facility]) Ondansetron 4 MG Disintegrating Oral Tablet Ondansetron 4 MG 01/24/2020 12:00:00 AM EDT 1.0 {tablet_on_the_tongue_and_allow_to_dissolve} suspended Ondansetron 4 MG eCW1 ([facility]) Ondansetron 4 MG Disintegrating Oral Tablet Ondansetron 4 MG 01/24/2020 12:00:00 AM EDT 1.0 {tablet_on_the_tongue_and_allow_to_dissolve} active Ondansetron 4 MG eCW1 ([facility]) Ondansetron 4 MG Disintegrating Oral Tablet Ondansetron 4 MG 01/24/2020 12:00:00 AM EDT 1.0 {tablet_on_the_tongue_and_allow_to_dissolve} suspended Ondansetron 4 MG eCW1 ([facility]) 4 mg 01/24/2020 12:00:00 AM EDT tablet,disintegrating 3 0 DISSOLVE ONE TABLET ON TONGUE EVERY DAY DISSOLVE ONE TABLET ON TONGUE EVERY DAY SOLD: 01/24/2020 [facility] 4 mg 11/25/2019 12:00:00 AM [...] NEEDED FOR NAUSEA SOLD: 01/09/2020 [facility] Insurance Providers Payer name Policy type / Coverage type Policy ID Covered green party ID Covered green party's relationship to rizvi Policy Rizvi Plan Information MEDICAID [id number] SP [id number] [facility] [id number] SP [id number] [facility] I [id number] Self [id number] Medicaid S [id number] S [id number] Managed Care - [facility] Community Plan P [id number] S [id number] Managed Care - Community Plan [facility] P [id number] S [id number] Medicaid S [id number] Managed Care - [facility] Community Plan P [id number] S [id number] [facility] [id number] Commercial Insurance Co. [id number] Self [id number] [facility] Health Maintenance Organization (HMO) [id number] Self [id number] [facility] [id number] [facility] COMMUNITY [facility]AN [facility] [id number] SP [id number] MEDICAID [id number] SP [id number] SELF PAY ONLY UNAVAILABLE SP UNAV AILABLE [facility] [id number] SP [id number] [facility] DOES NOT APPLY THIS VISIT SP DOES NOT APPLY THIS VISIT SELF PAY UNAVAILABLE UNAVAILA BLE O BLUE [id number] SP [id number] BLUE [employer]AN [id number] C[employer] Medigap Part B [id number] Self [facility] Health Maintenance Organization (HMO) [id number] Self HMO BLUE [id number] HMO BLUE [id number] SP [id number] CIG HEALTHCARE [id number] [id number] UNHC COMMUNITY PLAN MCDHMO [id number] SP [id number] UNHC COMMUNITY PLAN MCDHMO [id number] SP [id number] [place] [id number] SP [id number] MEDICAID [id number] SP [id number] MED[place]ID M [id number] S [id number] [facility](MCAID) O [id number] S [id number] UN COMMUNITY PLAN MCDHMO [id number] SP [id number] [facility] [id number] SP [id number] UN COMMUNITY PLAN XIX [id number] Problems, Conditions, and Diagnoses Code Display Name Description Problem Type Effective Dates Data Source(s) Z34.80 care Supervision of other normal P roblem 04/30/2020 12:00:00 AM EST eCW1 ([facility]) D50.9 Iron deficiency anemia Iron deficiency anemia Problem 03/09/2020 12:00:00 AM EST eCW1 ([facility]) Z34.80 care Supervision of other normal P roblem 01/20/2020 12:00:00 AM EDT eCW1 ([facility]) Surgeries/Procedures Procedure Description Date Indications Data Source(s) OFFICE VISIT, [facility] 11/05/2020 12:00:00 AM EDT - 11/05/2020 12:00:00 AM EDT [facility] ([facility]) CVR Mobile Practice Lead.Svc. STI / H 11/05/2020 12:00:00 AM EDT - 11/05/2020 12:00:00 AM EDT [facility] ([facility]) CVR Mobile Practice Lead.Svc. Other 11/05/2020 12:00:00 AM EDT - 2020 12:00:00 AM EDT [facility] ([facility]) CVR Mobile Practice Lead.Svc. Contraceptive 11/05/2020 12 :00:00 AM EDT - 11/05/2020 12:00:00 AM EDT [facility] ([facility]) CVR Med.Svc. Height/Weight 11/05/2020 12 :00:00 AM EDT - 11/05/2020 12:00:00 AM EDT [facility] ([facility]) CVR Blood Pressure 11/05/2020 12:00:00 AM EDT - 2020 12:00:00 AM EDT [facility] ([facility]) HCS Without Test 11/05/2020 12:00:00 AM EDT - 11/06/19 21 12:00:00 AM EDT [facility] ([facility]) Ultrasound Uterus 11/05/2020 12 :00:00 AM EDT - 11/05/2020 12:00:00 AM EDT [facility] ([facility]) Misoprostol, oral, 200 mcg 4 Tabs MAB 12:00:00 AM EDT - 11/05/2020 12:00:00 AM EDT [facility] ([facility]) Mifeprex, oral, 200 mg 11/05/2020 12:00: 00 AM EDT - 11/05/2020 12:00:00 AM EDT [facility] ([facility]) N.GONORRHOEAE, URINE 11/05/2020 12:00:00 AM EDT - 11/05/2020 12:00:00 AM EDT [facility] ([facility]) CHYLMD TRACH, URINE 11/05/2020 12:00:00 AM EDT - 11/05 12:00:00 AM EDT [facility] ([facility]) CAPILLARY BLOOD DRAW 11/05/2020 12:00:00 AM EDT - 11/05/2020 12:00:00 AM EDT [facility] ([facility]) HEMOGLOBIN 11/05/2020 12:00:00 AM EDT - 11/05/2020 1 2:00:00 AM EDT [facility] ([facility]) URINE TEST 11/05/2020 12:00:00 AM EDT - 11/05/2020 12:00:00 AM EDT [facility] ([facility]) Immunization: Boostrix 0.5mL IM (TDAP) 04/06/2020 12:0 0:00 AM EST eCW1 ([facility]) INFLUENZA VIRUS VACC SPLIT PRSRV FREE 3 YRS/> IM 02/17 12:00:00 AM EST eCW1 ([facility]) Results ID Date Data Source [id number] 11/05/2020 04:52:44 PM EDT [facility] ([facility]) Name Value Range Interpretation Code Description Data Aneta rce(s) Supporting Document(s) 11.60 gm/dL Hemoglobin NextGen ([facility]) ID Date Data Source [id number] 11/05/2020 04:32:46 PM EDT NextGen ([facility]) Name Value Range Interpretation Code Description Data Aneta rce(s) Supporting Document(s) PositiveLot: [id number]: 04/09/2022 Abnormal (applies to non-numeric results) High Sensitivity Urine Test NextGen ([facility]) ID Date Data Source GROUP B STREP CULTURE 04/23/2020 12:00:00 AM EST eCW1 ([facility]) Name Value Range Interpretation Code Description Data Aneta rce(s) Supporting Document(s) GROUP B STREP CULTURE eCW1 ([facility]) ID Date Data Source Glucose Challenge Test 1 Hour 03/09/2020 12:00:00 AM EST eCW 1 ([facility]) Name Value Range Interpretation Code Description Data Aneta rce(s) Supporting Document(s) 103 LESS THAN 140 GLUCOSE CHALLENGE TEST 1 HOUR eCW1 ([facility]) ID Date Data Source CBC - Complete Blood Count 03/09/2020 12:00:00 AM EST eCW1 ( [facility]) Name Value Range Interpretation Code Description Data Aneta rce(s) Supporting Document(s) 8.6 4.0-10.0 WHITE BLOOD COUNT eCW1 ([facility]) 10.1 12.0-15.5 HEMOGLOBIN eCW1 ([facility]) 3.30 4.00-5.40 RED BLOOD COUNT eCW1 ([facility]) 31.0 36.0-47.0 HEMATOCRIT eCW1 ([facility]) 93.9 80.0-96.0 MEAN CORPUSCULAR VOLUME e CW1 ([facility]) 14.5 11.5-14.5 RED CELL DISTRIBUTION WID TH eCW1 ([facility]) 32.6 32.0-36.5 MEAN CORPUSCULAR HGB CONC eCW1 ([facility]) 30.6 27.0-33.0 MEAN CORPUSCULAR HEMOGLOB IN eCW1 ([facility]) 193 150-450 PLATELET COUNT, AUTOMATED eCW1 ([facility]) Procedure Social History Code Duration Value Status Description Data Source(s ) Smoking 12/11/2020 12:00:00 AM EDT Heavy tobacco smoker comple cassius Heavy tobacco smoker NextGen ([facility]) 11/05/2020 12:00:00 AM EDT Moderate cigarette sm oker (10-19 cigs/day) completed Moderate cigarette smoker (10-19 cigs/day) [facility]) Smoking 10/20/2020 12:00:00 AM EDT Current Smoker completed Curre nt Smoker eCW1 ([facility]) Smoking 10/20/2020 12:00:00 AM EDT Current Smoker completed Curre nt Smoker eCW1 ([facility]) Smoking 10/20/2020 12:00:00 AM EDT Current Smoker completed Curre nt Smoker eCW1 ([facility]) Smoking 05/14/2020 12:00:00 AM EST Current Smoker completed Curre nt Smoker eCW1 ([facility]) Smoking 05/14/2020 12:00:00 AM EST Current Smoker completed Curre nt Smoker eCW1 ([facility]) Smoking 05/14/2020 12:00:00 AM EST Current Smoker completed Curre nt Smoker eCW1 ([facility]) Smoking 04/30/2020 12:00:00 AM EST Current Smoker completed Curre nt Smoker eCW1 ([facility]) Smoking 04/18/2020 12:00:00 AM EST Current Smoker completed Curre nt Smoker eCW1 ([facility]) Smoking 03/30/2020 12:00:00 AM EST Current Smoker completed Curre nt Smoker eCW1 ([facility]) Smoking 02/18/2020 12:00:00 AM EST Current Smoker completed Curre nt Smoker eCW1 ([facility]) Smoking 02/18/2020 12:00:00 AM EST Current Smoker completed Curre nt Smoker eCW1 ([facility]) Smoking 02/18/2020 12:00:00 AM EST Current Smoker completed Curre nt Smoker eCW1 ([facility]) Smoking 02/18/2020 12:00:00 AM EST Current Smoker completed Curre nt Smoker eCW1 ([facility]) Smoking 01/21/2020 12:00:00 AM EDT Current Smoker completed Curre nt Smoker eCW1 ([facility]) Vital Signs ID Date Data Source UNK Name Value Range Interpretation Code Description Data Source(s) Body height 160.02 cm 160.02 cm [facility] ([facility]) Body weight 77.111 kg 77.111 kg NextGen ([facility]) Systolic blood pressure 102 mm[Hg] 102 mm[Hg] N extGen ([facility]) Diastolic blood pressure 70 mm[Hg] 70 mm[Hg] NextGen ([facility]) Body mass index (BMI) [Ratio] 30.11 kg/m2 Overweight 30.11 kg/m2 NextGen ([facility]) Body weight 177 [lb_av] 177 [lb_av] eCW1 ([facility]) Body height 64 [in_i] 64 [in_i] eCW1 ([facility]) Body mass index (BMI) [Ratio] 30.38 kg/m2 30.38 kg/m2 eCW1 ([facility]) Systolic blood pressure 122 mm[Hg] 122 mm[Hg] e CW1 ([facility]) Diastolic blood pressure 68 mm[Hg] 68 mm[Hg] eCW1 ([facility]) Body weight 197.4 [lb_av] 197.4 [lb_av] eCW1 ([facility]) Body height 64 [in_i] 64 [in_i] eCW1 ([facility]) Body mass index (BMI) [Ratio] 33.884 kg/m2 33.8 84 kg/m2 eCW1 ([facility]) Systolic blood pressure 120 mm[Hg] 120 mm[Hg] e CW1 ([facility]) Diastolic blood pressure 68 mm[Hg] 68 mm[Hg] eCW1 ([facility]) Body weight 198 [lb_av] 198 [lb_av] eCW1 ([facility]) Body weight 89.81 kg 89.81 kg eCW1 ([facility]) Body height 64 [in_i] 64 [in_i] eCW1 ([facility]) Body mass index (BMI) [Ratio] 33.987 kg/m2 33.9 87 kg/m2 eCW1 ([facility]) Systolic blood pressure 118 mm[Hg] 118 mm[Hg] e CW1 ([facility]) Diastolic blood pressure 60 mm[Hg] 60 mm[Hg] eCW1 ([facility]) Body weight 196 [lb_av] 196 [lb_av] eCW1 ([facility]) Body height 64 [in_i] 64 [in_i] eCW1 ([facility]) Body mass index (BMI) [Ratio] 33.643 kg/m2 33.6 43 kg/m2 eCW1 ([facility]) Systolic blood pressure 112 mm[Hg] 112 mm[Hg] e CW1 ([facility]) Diastolic blood pressure 62 mm[Hg] 62 mm[Hg] eCW1 ([facility]) Body weight 192 [lb_av] 192 [lb_av] eCW1 ([facility]) Body weight 87.09 kg 87.09 kg eCW1 ([facility]) Body height 64 [in_i] 64 [in_i] eCW1 ([facility]) Body mass index (BMI) [Ratio] 32.957 kg/m2 32.9 57 kg/m2 eCW1 ([facility]) Systolic blood pressure 112 mm[Hg] 112 mm[Hg] e CW1 ([facility]) Diastolic blood pressure 62 mm[Hg] 62 mm[Hg] eCW1 ([facility]) Body weight 194.6 [lb_av] 194.6 [lb_av] eCW1 ([facility]) Body height 64 [in_i] 64 [in_i] eCW1 ([facility]) Body mass index (BMI) [Ratio] 33.403 kg/m2 33.4 03 kg/m2 eCW1 ([facility]) Systolic blood pressure 104 mm[Hg] 104 mm[Hg] e CW1 ([facility]) Diastolic blood pressure 62 mm[Hg] 62 mm[Hg] eCW1 ([facility]) Body weight 185.2 [lb_av] 185.2 [lb_av] eCW1 ([facility]) Body weight 84.01 kg 84.01 kg eCW1 ([facility]) Body height 64 [in_i] 64 [in_i] eCW1 ([facility]) Body mass index (BMI) [Ratio] 31.79 kg/m2 31.79 kg/m2 eCW1 ([facility]) Systolic blood pressure 120 mm[Hg] 120 mm[Hg] e CW1 ([facility]) Diastolic blood pressure 60 mm[Hg] 60 mm[Hg] eCW1 ([facility]) Body weight 179.6 [lb_av] 179.6 [lb_av] eCW1 ([facility]) Body weight 81.47 kg 81.47 kg eCW1 ([facility]) Body height 64 [in_i] 64 [in_i] eCW1 ([facility]) Body mass index (BMI) [Ratio] 30.828 kg/m2 30.8 28 kg/m2 eCW1 ([facility]) Systolic blood pressure 120 mm[Hg] 120 mm[Hg] e CW1 ([facility]) Diastolic blood pressure 62 mm[Hg] 62 mm[Hg] eCW1 ([facility]) Body weight 185 [lb_av] 185 [lb_av] eCW1 ([facility]) Body height 64 [in_i] 64 [in_i] eCW1 ([facility]) Body mass index (BMI) [Ratio] 31.755 kg/m2 31.7 55 kg/m2 eCW1 ([facility]) Systolic blood pressure 100 mm[Hg] 100 mm[Hg] e CW1 ([facility]) Diastolic blood pressure 54 mm[Hg] 54 mm[Hg] eCW1 ([facility]) Patient Treatment Plan of Care Planned Activity Planned Date Details Description Data Source (s) New in 2011. IIV4 02/18/2020 12:08:00 PM EST eCW1 ([facility]) New in 2011. IIV4 02/18/2020 12:08:00 PM EST eCW1 ([facility]) New in 2011. IIV4 02/18/2020 12:08:00 PM EST eCW1 ([facility]) New in 2011. IIV4 02/18/2020 12:08:00 PM EST eCW1 ([facility]) New in 2011. IIV4 02/18/2020 12:08:00 PM EST eCW1 ([facility]) New in 2011. IIV4 02/18/2020 12:08:00 PM EST eCW1 ([facility]) New in 2011. IIV4 02/18/2020 12:08:00 PM EST eCW1 ([facility]) New in 2011. IIV4 02/18/2020 12:08:00 PM EST eCW1 ([facility]) New in 2011. IIV4 02/18/2020 12:08:00 PM EST eCW1 ([facility]) New in 2011. IIV4 02/18/2020 12:08:00 PM EST eCW1 ([facility]) New in 2011. IIV4 02/18/2020 12:08:00 PM EST eCW1 ([facility]) New in 2011. IIV4 02/18/2020 12:08:00 PM EST eCW1 ([facility]) New in 2011. IIV4 02/18/2020 12:08:00 PM EST eCW1 ([facility]) Ondansetron 4 MG Oral Tablet 11/05/2020 12:00:00 AM EDT NextGen ([facility]) Ibuprofen 800 MG Oral Tablet 11/05/2020 12:00:00 AM EDT NextGen ([facility]) Misoprostol 0.2 MG Oral Tablet 11/05/2020 12:00:00 AM EDT NextGen ([facility]) Mifepristone 200 MG Oral Tablet [Mifeprex] 11/05/2020 12:00:00 AM E DT NextGen ([facility]) Metronidazole 500 MG Oral Tablet [Flagyl] 10/20/2020 12:00:00 AM ED T eCW1 ([facility]) Metronidazole 500 MG Oral Tablet [Flagyl] 10/20/2020 12:00:00 AM ED T eCW1 ([facility]) Metronidazole 500 MG Oral Tablet [Flagyl] 10/20/2020 12:00:00 AM ED T eCW1 ([facility]) ferrous sulfate 325 MG Oral Tablet 03/09/2020 12:00:00 AM EST eCW1 ([facility]) ferrous sulfate 325 MG Oral Tablet 03/09/2020 12:00:00 AM EST eCW1 ([facility]) Ondansetron 4 MG Disintegrating Oral Tablet 01/24/2020 12:00:00 AM EDT eCW1 ([facility]) Ondansetron 4 MG Disintegrating Oral Tablet 01/24/2020 12:00:00 AM EDT eCW1 ([facility]) Ondansetron 4 MG Disintegrating Oral Tablet 01/24/2020 12:00:00 AM EDT eCW1 ([facility]) Ondansetron 4 MG Disintegrating Oral Tablet 01/24/2020 12:00:00 AM EDT eCW1 ([facility]) Ondansetron 4 MG Disintegrating Oral Tablet 01/24/2020 12:00:00 AM EDT eCW1 ([facility])
--- OUTSIDE RECORDS SUMMARY | 2021-02-20 10:29 | CCD ---
Author Author [facility] Organization [facility] Address Unknown Phone Unavailable Care Team Providers Care Cone Sewer Name Role Phone McmillanGus vázquez Unavailable PROBLEMS Type Condition ICD9-CM Code [id number] Code Onset Dates Condition S tatus W/U Status Risk SNOMED Code Notes Problem Iron deficiency anemia D50.9 Active confirmed 85652197 Problem Supervision of other normal Z34.80 Ac tive confirm 895607161 Problem Dysmenorrhea 625.3 Active confirmed 5907617 00 Problem Supervision of other normal Z34.80 Ac tive confirm 965576642 Problem Supervision of other normal Z34.80 Ac tive confirmed [id number] ALLERGIES No Known Allergies ENCOUNTERS from 1995 to 2021-01-14 Encounter Location Date Provider Diagnosis [facility] [address] [place] [address] [place] [address] Nov, Gus Mcmillan IMMUNIZATIONS Vaccine Route Administration Date Status TDAP 0.5mL (Boostrix) IM Intramuscular Apr 06, 2020 Administe red Influenza 6mo & up Fluzone IM Intramuscular Feb 18, 2020 Pend ing SOCIAL HISTORY Tobacco Use: Social History Observation [...] Notes Start Da te End Date Status Ondansetron 4 MG 1 tablet on the tongue and a llow to dissolve Orally Once a day for 90 days Jan, Not-Taking 27-1 MG 1 tablet Orally Once a day Not-Taking Methadone HCl 10 MG/ML 5.5 mL Orally Once a day Not-Taking Ferrous Sulfate 325 (65 Fe) MG 1 tablet Orally Once a day for 30 day(s) Feb, Not-Taking Methadone HCl 40 MG 65mg Orally Once a day Active Flagyl 500 MG 1 tablet Orally BID for 7 day(s) Oct, Active 27-1 MG 1 tablet Orally Once a day Not-Taking Depo-Provera 150 MG/ML 150ml. Intramuscular every 12 wks. for 30 day( s) Not-Taking PROCEDURES No Information RESULTS No Results REASON FOR VISIT SURGERY DATES * MEDICAL (GENERAL) HISTORY Type Description Date Medical History History of Opiod use Medical History recovering addict Herion, Meth Medical History asthma/exercised induced Medical History dysmenorrhea Surgical History none Hospitalization History Childbirth Goals Section No Information Health Concerns No Information MEDICAL EQUIPMENT No Information MENTAL STATUS No Information FUNCTIONAL STATUS No Information ASSESSMENTS No Information PLAN OF TREATMENT Medication Medication Name Sig Start Date Stop Date Flagyl 500 MG 1 tablet Orally BID for 7 day(s) Oct, Next Appt Details Provider Name:Gus Mcmillan, 11:20:00 AM, [address] [place] [address] , [place], [address], Provider Name:Gus Mcmillan, 12:00:00 AM, [address] [facility], , [place], [address], Insurance Providers Payer Name Payer Address Payer Phone Insured Name Patient Relati onship to Insured Coverage Start Date Coverage End Date [employer] [facility] [address] [facility] [phone] GRISEL LOZA self
--- OUTSIDE RECORDS SUMMARY | 2021-02-20 10:29 | CCD ---
Author Author [facility] Organization [facility] Address Unknown Phone Unavailable Care Team Providers Care Chief Minister Name Role Phone McmillanLamberto vázquezhan Unavailable PROBLEMS Type Condition ICD9-CM Code [id number] Code Onset Dates Condition S tatus W/U Status Risk SNOMED Code Notes Problem Iron deficiency anemia D50.9 Active confirmed 30676320 Problem Supervision of other normal Z34.80 Ac tive confirm 988837296 Problem Dysmenorrhea 625.3 Active confirmed 1322160 00 Problem Supervision of other normal Z34.80 Ac tive confirm 453868835 Problem Supervision of other normal Z34.80 Ac tive confirmed [id number] ALLERGIES No Known Allergies ENCOUNTERS from 1995 to 2021-01-18 Encounter Location Date Provider Diagnosis [facility] [phone] [place] [address] 11 Jan, 2021 Gus Mcmillan IMMUNIZATIONS Vaccine Route Administration Date [...] smoke? 6-10 Are you interested in quitting? Not ready to quit Are you interested in quitting? Ready to quit Counseled the patient on smoking [...] Information RESULTS No Results REASON FOR VISIT 03/19/12 SURG AUTH MEDICAL (GENERAL) HISTORY Type Description Date Medical [...] Appt Details Provider Name:Gus Mcmillan, 11:20:00 AM, [address] [address] , [place], [address], Provider Name:Gus Mcmillan, 12:00:00 AM, [address] [facility], , [place], [address], Insurance Providers Payer Name Payer Address Payer Phone Insured Name Patient Relati onship to Insured Coverage Start Date Coverage End Date [employer] [facility] [facility] [address] [facility] [phone] GRISEL LOZA self
--- OUTSIDE RECORDS SUMMARY | 2021-02-20 12:27 | CCD ---
Author Author [facility] Organization [facility] Address Unknown Phone Unavailable Care Team Providers Care Electroencephalographic Technician Name Role Phone Archie T Peyton PA [...] T Peyton PA Unavailable Unavailable Feola, T Peyotn PA Unavailable Unavailable Feola, T Peyton PA Unavailable Unavailable Feola, T Peyton PA Unavailable Unavailable Feola, T Peyton PA Unavailable Unavailable Feola, T Peyton PA Unavailable Unavailable Feola, T Peyton PA Unavailable Unavailable Feola, T Peyton PA Unavailable Unavailable Feola, T Peyton PA Unavailable Unavailable Feola, T Peyton PA Unavailable Unavailable Feola, T Peyton PA Unavailable Unavailable Green ROTARY FURNACE TENDER ROTARY FURNACE TENDER, Sarah Unavailable Unavailable Green ROTARY FURNACE TENDER ROTARY FURNACE TENDER, Sarah Unavailable Unavailable Green ROTARY FURNACE TENDER ROTARY FURNACE TENDER, Sarah Unavailable Unavailable Green ROTARY FURNACE TENDER ROTARY FURNACE TENDER, Sarah Unavailable Unavailable Green ROTARY FURNACE TENDER ROTARY FURNACE TENDER, Sarah Unavailable Unavailable Bhargav Noble MD Unavailable [...] Real, Bhargav García MD Unavailable Unavailable Real, Bhragav García MD Unavailable Unavailable Real, Bhargav García [...] is protected by Article 27-F of the [facility] Public Health law. If you continue you may have access to information: Regarding HIV / AIDS; Provided by facilities licensed or operated by the [facility] Office of Mental Health; or Provided by the [facility] Office for People With Developmental Disabilities. If such information is present, then the following [facility] mandated warning applies: This information has [...] law may result in a fine or mcfp sentence or both. A general authorization for the release of medical or other information is NOT sufficient authorization for further disc losure. Family History Family Member Name Family Member Gender Family Member Status Date o f Status Description Data Source(s) Unknown Female Diagnosis 11/05/2020 12:00:00 AM EDT [facility] ([facility]) Unknown Unknown Problem MEDENT ([facility]) Unknown Unknown Problem MEDENT ([facility]) Unknown Unknown Problem MEDENT ([facility]) Encounters Encounter Providers Location Date Indications Data Source(s ) Outpatient Attender: Peyton CARMONA 11/09/2 021 08:27:21 PM EST - 02/16/2021 09:33:58 PM EST Doc[facility]Tap ([facility] ) [place] [address] [address] 01/18/2021 12:00:00 AM EDT eCW1 (Critical [facility] hospital) Attender: Raquel GENAO [place] 06/2020 11:08:00 AM EDT - 12/11/2020 11:08:00 AM EDT [facility] ([facility]) [place] [address] [facility] [address] 11/25/2020 12:00:00 AM EDT eCW1 (Critical access hospital) Attender: Raquel GENAO [place] 01/2021 02:55:00 PM EDT - 11/17/2020 02:55:00 PM EDT [facility] ([facility]) Attender: Raquel [place] 08/2020 11:02:00 AM EDT - 11/12/2020 11:02:00 AM EDT [facility] ([facility]) HCS Without Test Attender: Sarah Dumont ROTARY FURNACE TENDER ROTARY FURNACE TENDER BIRGIT [place] 11/05/2020 04:00:00 PM EDT - 11/05/2020 04:00:00 PM EDT Other sex counselingEncntr screen for infections w sexl mode of transmissEncounter for oth general cnsl and advice on contraceptionEncounter for elective termination of pregnancyProblems related to unwanted pregnancyHuman immunodeficiency virus [HIV] counselingEncounter for test, result positive NextGen ([facility]) Other sex counseling Encntr screen for infections w sexl mode of transmiss Encounter for oth general cnsl and advic e on contraception Encounter for elective termination of pr egnancy Problems related to unwanted Human immunodeficiency virus [HIV] couns eling Encounter for test, result pos itive Outpatient [address] [address] 10/20/2020 12:00:00 AM EDT eCW1 ([facility]) ([facility]) [facility] [address] [place] [address] 05/21/2020 12:00:00 AM EST eCW1 ([facility]) (WC [facility]) [facility] [address] [place] [address] 05/13/2020 12:00:00 AM EST eCW1 ([facility]) (WC [facility]) [facility] [address] [place] [address] 05/06/2020 12:00:00 AM EST eCW1 ([facility]) (WC [facility]) [facility] [address] [place] [address] 04/30/2020 12:00:00 AM EST eCW1 ([facility]) (WC [facility]) [facility] [address] [place] [address] 04/23/2020 12:00:00 AM EST eCW1 ([facility]) (WC EST[facility]) [facility] [address] [place] [address] 04/06/2020 12:00:00 AM EST eCW1 ([facility]) [place] [address] [facility] [facility] [address] 03/09/2020 12:00:00 AM EST [facility]CW1 ([facility]) [place] [address] [facility] [place] [address] 02/20/2020 12:00:00 AM EST eCW1 ([facility]) ( ESTOB) [facility] Est [facility] [address] [place] [address] 02/18/2020 12:00:00 AM EST eCW1 ([facility]) (WC ESTOB) [facility] [address] [place] [address] 01/21/2020 12:00:00 AM EDT eCW1 ([facility]) Immunizations Vaccine Date Status Description Data Source(s) Tdap 04/06/2020 02:23:00 PM EST completed e CW1 ([facility]) Tdap 04/06/2020 02:23:00 PM EST completed e CW1 ([facility]) Tdap 04/06/2020 02:23:00 PM EST completed e CW1 ([facility]) Tdap 04/06/2020 02:23:00 PM EST completed e CW1 ([facility]) Tdap 04/06/2020 02:23:00 PM EST completed e CW1 ([facility]) Tdap 04/06/2020 02:23:00 PM EST completed e CW1 ([facility]) Tdap 04/06/2020 02:23:00 PM EST completed e CW1 ([facility]) Tdap 04/06/2020 02:23:00 PM EST completed e CW1 ([facility]) Tdap 04/06/2020 02:23:00 PM EST completed e CW1 ([facility]) Medications Medication Brand Name Start Date Product Form Dose Route Admi nistrative Instructions Pharmacy Instructions Status Indications Reaction Description Data Source(s) Ibuprofen 800 MG Oral Tablet ibuprofen 800 mg tablet ibuprof en 800 mg tablet 11/05/2020 12:00:00 AM EDT completed 1 tab po every 8 hours prn [facility] ([facility]) Misoprostol 0.2 MG Oral Tablet misoprostol 200 mcg tab let misoprostol 200 mcg tablet 11/05/2020 12:00:00 AM EDT completed 4 tabs intravaginally within the next 48 hours Next[facility] ([facility]) 800 mg 11/05/2020 12:00:00 AM EDT [...] hours prn [facility] ([facility]) 4 mg 11/05/2020 12:00:00 AM [...] Tablet [Mifeprex] [facility] ([facility]) Metronidazole 500 MG Oral Tablet [Flagyl] Flagyl 500 MG Flag yl 500 MG 10/20/2020 12:00:00 AM EDT 1.0 {tablet} active F lagyl 500 MG eCW1 ([facility]) Metronidazole 500 MG Oral Tablet [Flagyl] Flagyl 500 MG Flag yl 500 MG 10/20/2020 12:00:00 AM EDT 1.0 {tablet} active F lagyl 500 MG eCW1 ([facility]) Metronidazole 500 MG Oral Tablet [Flagyl] Flagyl 500 MG Flag yl 500 MG 10/20/2020 12:00:00 AM EDT 1.0 {tablet} active F lagyl 500 MG eCW1 ([facility]) Metronidazole 500 MG Oral Tablet METRONIDAZOLE 10/20/2020 [...] Sulfate 325 (65 Fe) MG e 1 ([facility]) ferrous sulfate 325 MG Oral Tablet Ferrous Sulfate 325 (65 Fe) MG Ferrous Sulfate 325 (65 Fe) MG 03/09/2020 12:00:00 AM EST 1.0 {tablet} suspended Ferrous Sulfate 325 (65 Fe) MG e CW1 ([facility]) ferrous sulfate 325 MG Oral Tablet Ferrous Sulfate 325 (65 Fe) MG Ferrous Sulfate 325 (65 Fe) MG 03/09/2020 12:00:00 AM EST 1.0 {tablet} suspended Ferrous Sulfate 325 (65 Fe) MG e 1 ([facility]) ferrous sulfate 325 MG Oral Tablet Ferrous Sulfate 325 (65 Fe) MG Ferrous Sulfate 325 (65 Fe) MG 03/09/2020 12:00:00 AM EST 1.0 {tablet} suspended Ferrous Sulfate 325 (65 Fe) MG e CW1 ([facility]) ferrous sulfate 325 MG Oral Tablet Ferrous Sulfate 325 (65 Fe) MG Ferrous Sulfate 325 (65 Fe) MG 03/09/2020 12:00:00 AM EST 1.0 {tablet} suspended Ferrous Sulfate 325 (65 Fe) MG e CW1 ([facility]) ferrous sulfate 325 MG Oral Tablet Ferrous Sulfate 325 (65 Fe) MG Ferrous Sulfate 325 (65 Fe) MG 03/09/2020 12:00:00 AM EST 1.0 {tablet} suspended Ferrous Sulfate 325 (65 Fe) MG e CW1 ([facility]) ferrous sulfate 325 MG Oral Tablet Ferrous Sulfate 325 (65 Fe) MG Ferrous Sulfate 325 (65 Fe) MG 03/09/2020 12:00:00 AM EST 1.0 {tablet} suspended Ferrous Sulfate 325 (65 Fe) MG e 1 ([facility]) ferrous sulfate 325 MG Oral Tablet Ferrous Sulfate 325 (65 Fe) MG Ferrous Sulfate 325 (65 Fe) MG 03/09/2020 12:00:00 AM EST 1.0 {tablet} suspended Ferrous Sulfate 325 (65 Fe) MG e CW1 ([facility]) ferrous sulfate 325 MG Oral Tablet Ferrous Sulfate 325 (65 Fe) MG Ferrous Sulfate 325 (65 Fe) MG 03/09/2020 12:00:00 AM EST 1.0 {tablet} suspended Ferrous Sulfate 325 (65 Fe) MG e CW1 ([facility]) ferrous sulfate 325 MG Oral Tablet Ferrous Sulfate 325 (65 Fe) MG Ferrous Sulfate 325 (65 Fe) MG 03/09/2020 12:00:00 AM EST 1.0 {tablet} active Ferrous Sulfate 325 (65 Fe) MG eCW1 ([facility]) ferrous sulfate 325 MG Oral Tablet Ferrous Sulfate 325 (65 Fe) MG Ferrous Sulfate 325 (65 Fe) MG 03/09/2020 12:00:00 AM EST 1.0 {tablet} active Ferrous Sulfate 325 (65 Fe) MG eCW1 ([facility]) 4 mg 02/27/2020 12:00:00 AM EST tablet,disintegrating [...] 1.0 {tablet_on_the_tongue_and_allow_to_dissolve} active Ondansetron 4 MG eCW1 ([facility]) Ondansetron 4 MG Disintegrating Oral Tablet Ondansetron 4 MG 01/24/2020 12:00:00 AM EDT 1.0 {tablet_on_the_tongue_and_allow_to_dissolve} suspended Ondansetron 4 MG eCW1 ([facility]) Ondansetron 4 MG Disintegrating Oral Tablet Ondansetron 4 MG 01/24/2020 12:00:00 AM EDT 1.0 {tablet_on_the_tongue_and_allow_to_dissolve} active Ondansetron 4 MG eCW1 ([facility]) Ondansetron 4 MG Disintegrating Oral Tablet Ondansetron 4 MG 01/24/2020 12:00:00 AM EDT 1.0 {tablet_on_the_tongue_and_allow_to_dissolve} active Ondansetron 4 MG eCW1 ([facility]) Ondansetron 4 MG Disintegrating Oral Tablet Ondansetron 4 MG 01/24/2020 12:00:00 AM EDT 1.0 {tablet_on_the_tongue_and_allow_to_dissolve} active Ondansetron 4 MG eCW1 ([facility]) Ondansetron 4 MG Disintegrating Oral Tablet Ondansetron 4 MG 01/24/2020 12:00:00 AM EDT 1.0 {tablet_on_the_tongue_and_allow_to_dissolve} active Ondansetron 4 MG eCW1 ([facility]) Ondansetron 4 MG Disintegrating Oral Tablet Ondansetron 4 MG 01/24/2020 12:00:00 AM EDT 1.0 {tablet_on_the_tongue_and_allow_to_dissolve} active Ondansetron 4 MG eCW1 ([facility]) Ondansetron 4 MG Disintegrating Oral Tablet Ondansetron 4 MG 01/24/2020 12:00:00 AM EDT 1.0 {tablet_on_the_tongue_and_allow_to_dissolve} active Ondansetron 4 MG eCW1 ([facility]) Ondansetron 4 MG Disintegrating Oral Tablet Ondansetron 4 MG 01/24/2020 12:00:00 AM EDT 1.0 {tablet_on_the_tongue_and_allow_to_dissolve} active Ondansetron 4 MG eCW1 ([facility]) Ondansetron 4 MG Disintegrating Oral Tablet Ondansetron 4 MG 01/24/2020 12:00:00 AM EDT 1.0 {tablet_on_the_tongue_and_allow_to_dissolve} active Ondansetron 4 MG eCW1 ([facility]) Ondansetron 4 MG Disintegrating Oral Tablet Ondansetron 4 MG 01/24/2020 12:00:00 AM EDT 1.0 {tablet_on_the_tongue_and_allow_to_dissolve} active Ondansetron 4 MG eCW1 ([facility]) Ondansetron 4 MG Disintegrating Oral Tablet Ondansetron 4 MG 01/24/2020 12:00:00 AM EDT 1.0 {tablet_on_the_tongue_and_allow_to_dissolve} suspended Ondansetron 4 MG eCW1 ([facility]) Ondansetron 4 MG Disintegrating Oral Tablet Ondansetron 4 MG 01/24/2020 12:00:00 AM EDT 1.0 {tablet_on_the_tongue_and_allow_to_dissolve} active Ondansetron 4 MG eCW1 ([facility]) Ondansetron 4 MG Disintegrating Oral Tablet Ondansetron 4 MG 01/24/2020 12:00:00 AM EDT 1.0 {tablet_on_the_tongue_and_allow_to_dissolve} suspended Ondansetron 4 MG eCW1 ([facility]) 4 mg 01/24/2020 12:00:00 AM EDT tablet,disintegrating [...] type / Coverage type Policy ID Covered constitution party ID Covered constitution party's relationship to rizvi Policy Rizvi Plan Information MEDICAID [id number] SP [id number] [facility] COMMUNITY PLAN [facility] [id number] SP [id number] [facility] I [id number] Self [id number] Medicaid S [id number] S [id number] Managed Care - [facility] Community Plan P [id number] S [id number] Managed Care - Community Plan [facility] P [id number] S [id number] Medicaid S [id number] S [id number] Managed Care - [facility] Community Plan P [id number] S [id number] [facility] [id number] self [facility] Commercial Insurance Co. [id number] Self [id number] [facility] Health Maintenance Organization (HMO) [id number] Self [id number] [facility] [id number] FA2 U [id number] [facility] COMMUNITY PLAN [facility] [id number] SP [id number] MEDICAID [id number] SP [id number] SELF PAY ONLY UNAVAILABLE SP UNAV AILABLE [facility] INS [id number] SP [id number] [facility] DOES NOT APPLY THIS VISIT SP DOES NOT APPLY THIS VISIT SELF PAY UNAVAILABLE UNAVAILA BLE O BLUE [id number] SP [id number] BLUE [employer] PLAN [id number] FA2 [id number] C[employer] Medigap Part [id number] Self [facility] Health Maintenance Organization (HMO) [id number] Self HMO BLUE [id number] FA2 [id number] HMO BLUE [id number] SP [id number] [facility] [facility] [id number] FA2 [id number] UNHC COMMUNITY PLAN MCDHMO [id number] SP [id number] UNHC COMMUNITY PLAN MCDHMO [id number] SP [id number] [place] [id number] SP [id number] MEDICAID [id number] SP [id number] MEDICAID M [id number] S [id number] [facility](MCAID) O [id number] S [id number] UN COMMUNITY PLAN MCDHMO [id number] SP [id number] [facility] [id number] SP [id number] UN COMMUNITY PLAN XIX [id number] Problems, Conditions, and Diagnoses Code Display Name Description Problem Type Effective Dates Data Source(s) Z34.80 care Supervision of other normal P roblem 04/30/2020 12:00:00 AM EST eCW1 ([facility]) D50.9 Iron deficiency anemia Iron deficiency anemia Problem 03/09/2020 12:00:00 AM EST eCW1 ([facility]) Z34.80 care Supervision of other normal P roblem 01/20/2020 12:00:00 AM EDT eCW1 ([facility]) Surgeries/Procedures Procedure Description Date Indications Data Source(s) OFFICE VISIT, [facility] 11/05/2020 12:00:00 AM EDT - 11/05/2020 12:00:00 AM EDT [facility] ([facility]) CVR Plate Gauger.Svc. STI / H 11/05/2020 12:00:00 AM EDT - 11/05/2020 12:00:00 AM EDT [facility] ([facility]) CVR Plate Gauger.Svc. Other 11/05/2020 12:00:00 AM EDT - 2020 12:00:00 AM EDT [facility] ([facility]) CVR Plate Gauger.Svc. Contraceptive 11/05/2020 12 :00:00 AM EDT - 11/05/2020 12:00:00 AM EDT [facility] ([facility]) CVR Med.Svc. Height/Weight 11/05/2020 12 :00:00 AM EDT - 11/05/2020 12:00:00 AM EDT [facility] ([facility]) CVR Blood Pressure 11/05/2020 12:00:00 AM EDT - 2020 12:00:00 AM EDT [facility] ([facility]) HCS Without Test 11/05/2020 12:00:00 AM EDT - 11/06/19 21 12:00:00 AM EDT [facility] ([facility]) Ultrasound Uterus 11/05/2020 12 :00:00 AM EDT - 11/05/2020 12:00:00 AM EDT [facility] ([facility]) Misoprostol, oral, 200 mcg 4 Tabs MAB 12:00:00 AM EDT - 11/05/2020 12:00:00 AM EDT [facility] ([facility]) Mifeprex, oral, 200 mg 11/05/2020 12:00: 00 AM EDT - 11/05/2020 12:00:00 AM EDT [facility] ([facility]) N.GONORRHOEAE, URINE 11/05/2020 12:00:00 AM EDT - 11/05/2020 12:00:00 AM EDT [facility] ([facility]) CHYLMD TRACH, URINE 11/05/2020 12:00:00 AM EDT - 11/05 12:00:00 AM EDT [facility] ([facility]) CAPILLARY BLOOD DRAW 11/05/2020 12:00:00 AM EDT - 11/05/2020 12:00:00 AM EDT [facility] ([facility]) HEMOGLOBIN 11/05/2020 12:00:00 AM EDT - 11/05/2020 1 2:00:00 AM EDT [facility] ([facility]) URINE TEST 11/05/2020 12:00:00 AM EDT - 11/05/2020 12:00:00 AM EDT [facility] ([facility]) Immunization: Boostrix 0.5mL IM (TDAP) 04/06/2020 12:0 0:00 AM EST eCW1 ([facility]) INFLUENZA VIRUS VACC SPLIT PRSRV FREE 3 YRS/> IM 02/17 12:00:00 AM EST eCW1 ([facility]) Results ID Date Data Source [id number] 11/05/2020 04:52:44 PM EDT [facility] ([facility]) Name Value Range Interpretation Code Description Data Aneta rce(s) Supporting Document(s) 11.60 gm/dL Hemoglobin [facility] ([facility]) ID Date Data Source [id number] 11/05/2020 04:32:46 PM EDT [facility] ([facility]) Name Value Range Interpretation Code Description Data Aneta rce(s) Supporting Document(s) PositiveLot: [id number]: 04/09/2022 Abnormal (applies to non-numeric results) High Sensitivity Urine Test [facility] ([facility]) ID Date Data Source GROUP B STREP CULTURE 04/23/2020 12:00:00 AM EST eCW1 ([facility]) Name Value Range Interpretation Code Description Data Aneta rce(s) Supporting Document(s) GROUP B STREP CULTURE eCW1 (Critical [facility] hospital) ID Date Data Source Glucose Challenge Test 1 Hour 03/09/2020 12:00:00 AM EST eCW 1 ([facility]) Name Value Range Interpretation Code Description Data Aneta rce(s) Supporting Document(s) 103 LESS THAN 140 GLUCOSE CHALLENGE TEST 1 HOUR eCW1 ([facility]) ID Date Data Source CBC - Complete Blood Count 03/09/2020 12:00:00 AM EST eCW1 ( [facility]) Name Value Range Interpretation Code Description Data Aneta rce(s) Supporting Document(s) 8.6 4.0-10.0 WHITE BLOOD COUNT eCW1 ([facility]) 10.1 12.0-15.5 HEMOGLOBIN eCW1 ([facility]) 3.30 4.00-5.40 RED BLOOD COUNT eCW1 ([facility]) 31.0 36.0-47.0 HEMATOCRIT eCW1 ([facility]) 93.9 80.0-96.0 MEAN CORPUSCULAR VOLUME e CW1 ([facility]) 14.5 11.5-14.5 RED CELL DISTRIBUTION WID TH eCW1 ([facility]) 32.6 32.0-36.5 MEAN CORPUSCULAR HGB CONC eCW1 ([facility]) 30.6 27.0-33.0 MEAN CORPUSCULAR HEMOGLOB IN eCW1 ([facility]) 193 150-450 PLATELET COUNT, AUTOMATED eCW1 ([facility]) Procedure Social History Code Duration Value Status Description Data Source(s ) Smoking 12/11/2020 12:00:00 AM EDT Heavy tobacco smoker comple cassius Heavy tobacco smoker [facility] ([facility]) 11/05/2020 12:00:00 AM EDT Moderate cigarette sm oker (10-19 cigs/day) completed Moderate cigarette smoker (10-19 cigs/day) [facility] Smoking 10/20/2020 12:00:00 AM EDT Current Smoker completed Curre nt Smoker eCW1 ([facility]) Smoking 10/20/2020 12:00:00 AM EDT Current Smoker completed Curre nt Smoker eCW1 ([facility]) Smoking 10/20/2020 12:00:00 AM EDT Current Smoker completed Curre nt Smoker eCW1 ([facility]) Smoking 05/14/2020 12:00:00 AM EST Current Smoker completed Curre nt Smoker eCW1 ([facility]) Smoking 05/14/2020 12:00:00 AM EST Current Smoker completed Curre nt Smoker eCW1 ([facility]) Smoking 05/14/2020 12:00:00 AM EST Current Smoker completed Curre nt Smoker eCW1 ([facility]) Smoking 04/30/2020 12:00:00 AM EST Current Smoker completed Curre nt Smoker eCW1 ([facility]) Smoking 04/18/2020 12:00:00 AM EST Current Smoker completed Curre nt Smoker eCW1 ([facility]) Smoking 03/30/2020 12:00:00 AM EST Current Smoker completed Curre nt Smoker eCW1 ([facility]) Smoking 02/18/2020 12:00:00 AM EST Current Smoker completed Curre nt Smoker eCW1 ([facility]) Smoking 02/18/2020 12:00:00 AM EST Current Smoker completed Curre nt Smoker eCW1 ([facility]) Smoking 02/18/2020 12:00:00 AM EST Current Smoker completed Curre nt Smoker eCW1 ([facility]) Smoking 02/18/2020 12:00:00 AM EST Current Smoker completed Curre nt Smoker eCW1 ([facility]) Smoking 01/21/2020 12:00:00 AM EDT Current Smoker completed Curre nt Smoker eCW1 ([facility]) Vital Signs ID Date Data Source UNK Name Value Range Interpretation Code Description Data Source(s) Body height 160.02 cm 160.02 cm [facility] ([facility]) Body weight 77.111 kg 77.111 kg [facility] ([facility]) Systolic blood pressure 102 mm[Hg] 102 mm[Hg] N extGen ([facility]) Diastolic blood pressure 70 mm[Hg] 70 mm[Hg] [facility] ([facility]) Body mass index (BMI) [Ratio] 30.11 kg/m2 Overweight 30.11 kg/m2 [facility] ([facility]) Body weight 177 [lb_av] 177 [lb_av] eCW1 ([facility]) Body height 64 [in_i] 64 [in_i] eCW1 ([facility]) Body mass index (BMI) [Ratio] 30.38 kg/m2 30.38 kg/m2 eCW1 ([facility]) Systolic blood pressure 122 mm[Hg] 122 mm[Hg] e CW1 ([facility]) Diastolic blood pressure 68 mm[Hg] 68 mm[Hg] eCW1 ([facility]) Body weight 197.4 [lb_av] 197.4 [lb_av] eCW1 ([facility]) Body height 64 [in_i] 64 [in_i] eCW1 ([facility]) Body mass index (BMI) [Ratio] 33.884 kg/m2 33.8 84 kg/m2 eCW1 ([facility]) Systolic blood pressure 120 mm[Hg] 120 mm[Hg] e CW1 ([facility]) Diastolic blood pressure 68 mm[Hg] 68 mm[Hg] eCW1 ([facility]) Body weight 198 [lb_av] 198 [lb_av] eCW1 ([facility]) Body weight 89.81 kg 89.81 kg eCW1 ([facility]) Body height 64 [in_i] 64 [in_i] eCW1 ([facility]) Body mass index (BMI) [Ratio] 33.987 kg/m2 33.9 87 kg/m2 eCW1 ([facility]) Systolic blood pressure 118 mm[Hg] 118 mm[Hg] e CW1 ([facility]) Diastolic blood pressure 60 mm[Hg] 60 mm[Hg] eCW1 ([facility]) Body weight 196 [lb_av] 196 [lb_av] eCW1 ([facility]) Body mass index (BMI) [Ratio] 33.643 kg/m2 33.6 43 kg/m2 eCW1 ([facility]) Systolic blood pressure 112 mm[Hg] 112 mm[Hg] e CW1 ([facility]) Diastolic blood pressure 62 mm[Hg] 62 mm[Hg] eCW1 ([facility]) Body height 64 [in_i] 64 [in_i] eCW1 ([facility]) Body weight 192 [lb_av] 192 [lb_av] eCW1 ([facility]) Body weight 87.09 kg 87.09 kg eCW1 ([facility]) Body height 64 [in_i] 64 [in_i] eCW1 ([facility]) Body mass index (BMI) [Ratio] 32.957 kg/m2 32.9 57 kg/m2 eCW1 ([facility]) Systolic blood pressure 112 mm[Hg] 112 mm[Hg] e CW1 ([facility]) Diastolic blood pressure 62 mm[Hg] 62 mm[Hg] eCW1 ([facility]) Body weight 194.6 [lb_av] 194.6 [lb_av] eCW1 ([facility]) Body height 64 [in_i] 64 [in_i] eCW1 ([facility]) Body mass index (BMI) [Ratio] 33.403 kg/m2 33.4 03 kg/m2 eCW1 ([facility]) Systolic blood pressure 104 mm[Hg] 104 mm[Hg] e CW1 ([facility]) Diastolic blood pressure 62 mm[Hg] 62 mm[Hg] eCW1 ([facility]) Body weight 185.2 [lb_av] 185.2 [lb_av] eCW1 ([facility]) Body weight 84.01 kg 84.01 kg eCW1 ([facility]) Body height 64 [in_i] 64 [in_i] eCW1 ([facility]) Body mass index (BMI) [Ratio] 31.79 kg/m2 31.79 kg/m2 eCW1 ([facility]) Systolic blood pressure 120 mm[Hg] 120 mm[Hg] e CW1 ([facility]) Diastolic blood pressure 60 mm[Hg] 60 mm[Hg] eCW1 ([facility]) Body weight 179.6 [lb_av] 179.6 [lb_av] eCW1 ([facility]) Body weight 81.47 kg 81.47 kg eCW1 ([facility]) Body height 64 [in_i] 64 [in_i] eCW1 ([facility]) Body mass index (BMI) [Ratio] 30.828 kg/m2 30.8 28 kg/m2 eCW1 ([facility]) Systolic blood pressure 120 mm[Hg] 120 mm[Hg] e CW1 ([facility] [facility]) Diastolic blood pressure 62 mm[Hg] 62 mm[Hg] eCW1 ([facility]) Body weight 185 [lb_av] 185 [lb_av] eCW1 ([facility]) Body height 64 [in_i] 64 [in_i] eCW1 ([facility]) Body mass index (BMI) [Ratio] 31.755 kg/m2 31.7 55 kg/m2 eCW1 ([facility]) Systolic blood pressure 100 mm[Hg] 100 mm[Hg] e CW1 ([facility]) Diastolic blood pressure 54 mm[Hg] 54 mm[Hg] eCW1 ([facility]) Patient Treatment Plan of Care Planned Activity Planned Date Details Description Data Source (s) New in 2011. IIV4 02/18/2020 12:08:00 PM EST eCW1 ([facility]) New in 2011. IIV4 02/18/2020 12:08:00 PM EST eCW1 ([facility]) New in 2011. IIV4 02/18/2020 12:08:00 PM EST eCW1 ([facility]) New in 2011. IIV4 02/18/2020 12:08:00 PM EST eCW1 ([facility]) New in 2011. IIV4 02/18/2020 12:08:00 PM EST eCW1 ([facility]) New in 2011. IIV4 02/18/2020 12:08:00 PM EST eCW1 ([facility]) New in 2011. IIV4 02/18/2020 12:08:00 PM EST eCW1 ([facility]) New in 2011. IIV4 02/18/2020 12:08:00 PM EST eCW1 ([facility]) New in 2011. IIV4 02/18/2020 12:08:00 PM EST eCW1 ([facility]) New in 2011. IIV4 02/18/2020 12:08:00 PM EST eCW1 ([facility]) New in 2011. IIV4 02/18/2020 12:08:00 PM EST eCW1 ([facility]) New in 2011. IIV4 02/18/2020 12:08:00 PM EST eCW1 ([facility]) New in 2011. IIV4 02/18/2020 12:08:00 PM EST eCW1 ([facility]) Ondansetron 4 MG Oral Tablet 11/05/2020 12:00:00 AM EDT [facility] ([facility]) Ibuprofen 800 MG Oral Tablet 11/05/2020 12:00:00 AM EDT [facility] ([facility]) Misoprostol 0.2 MG Oral Tablet 11/05/2020 12:00:00 AM EDT [facility] ([facility]) Mifepristone 200 MG Oral Tablet [Mifeprex] 11/05/2020 12:00:00 AM E DT [facility] ([facility]) Metronidazole 500 MG Oral Tablet [Flagyl] 10/20/2020 12:00:00 AM ED T eCW1 ([facility]) Metronidazole 500 MG Oral Tablet [Flagyl] 10/20/2020 12:00:00 AM ED T eCW1 ([facility]) Metronidazole 500 MG Oral Tablet [Flagyl] 10/20/2020 12:00:00 AM ED T eCW1 ([facility]) ferrous sulfate 325 MG Oral Tablet 03/09/2020 12:00:00 AM EST eCW1 ([facility]) ferrous sulfate 325 MG Oral Tablet 03/09/2020 12:00:00 AM EST eCW1 ([facility]) Ondansetron 4 MG Disintegrating Oral Tablet 01/24/2020 12:00:00 AM EDT eCW1 ([facility]) Ondansetron 4 MG Disintegrating Oral Tablet 01/24/2020 12:00:00 AM EDT eCW1 ([facility]) Ondansetron 4 MG Disintegrating Oral Tablet 01/24/2020 12:00:00 AM EDT eCW1 ([facility]) Ondansetron 4 MG Disintegrating Oral Tablet 01/24/2020 12:00:00 AM EDT eCW1 ([facility]) Ondansetron 4 MG Disintegrating Oral Tablet 01/24/2020 12:00:00 AM EDT eCW1 ([facility])
[2021-02-20 14:19] LABS: URINE PREG TEST NEGATIVE (NEGATIVE)
[2021-02-20 14:26] LABS: AMPHETAMINES LEVEL URINE POSITIVE (NEGATIVE); BARBITURATES URINE NEGATIVE (NEGATIVE); BENZODIAZEPINES URINE NEGATIVE (NEGATIVE); CANNABINOIDS URINE POSITIVE (NEGATIVE); COCAINE METABOLITE URINE NEGATIVE (NEGATIVE); METHADONE URINE POSITIVE (NEGATIVE); OPIATES URINE NEGATIVE (NEGATIVE); PHENCYCLIDINE URINE NEGATIVE (NEGATIVE)
[2021-02-20 17:28] LABS: HEMATOCRIT 41.9 % (36.0-47.0); HEMOGLOBIN 13.6 g/dl (12.0-15.5); MEAN CORPUSCULAR HEMOGLOBIN 28.7 pg (27.0-33.0); MEAN CORPUSCULAR HGB CONC 32.5 g/dl (32.0-36.5); MEAN CORPUSCULAR VOLUME 88.4 fl (80.0-96.0); PLATELET COUNT, AUTOMATED 302 10^3/uL (150-450); RED BLOOD COUNT 4.74 10^6/uL (4.00-5.40)
[2021-02-20 17:47] LABS: HCG, SERUM QUALITATIVE NEGATIVE (NEGATIVE)
[2021-02-20 17:57] LABS: ACETAMINOPHEN LEVEL < 2.0 UG/ML (10.0-30.0); ALBUMIN 4.4 GM/DL (3.2-5.2); ALT/SGPT 18 U/L (12-78); BILIRUBIN,DIRECT 0.1 MG/DL (0.0-0.2); BILIRUBIN,TOTAL 0.4 MG/DL (0.2-1.0); BLOOD UREA NITROGEN 14 MG/DL (7-18); CALCIUM LEVEL 9.4 MG/DL (8.5-10.1); CARBON DIOXIDE LEVEL 25 MEQ/L (21-32); CHLORIDE LEVEL 109 MEQ/L (98-107); CPK CREATINE PHOSPHOKINASE 70 U/L (26-192); CREATININE FOR GFR 0.62 MG/DL (0.55-1.30); ETHYL ALCOHOL (ETHANOL) < 0.003 % (0.000-0.010); GLOMERULAR FILTRATION RATE > 60.0 (>60); GLUCOSE, FASTING 98 MG/DL (70-100); POTASSIUM SERUM 3.8 MEQ/L (3.5-5.1); SALICYLATE LEVEL 3.8 MG/DL (5.0-30.0); SODIUM LEVEL 141 MEQ/L (136-145); TOTAL PROTEIN 7.8 GM/DL (6.4-8.2)
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
== END 2021-02-20 18:20 | disposition home or self-care (01) ==
LOC: M ED 10:23
DX: F43.0 Acute stress reaction (principal); R45.851 Suicidal ideations; F17.200 Nicotine dependence, unspecified, uncomplicated; F19.10 Other psychoactive substance abuse, uncomplicated

== ENCOUNTER → 2021-02-25 | Outpatient (REF) | payer OTHER ==
[2021-02-25 18:16] LABS: GC DNA AMPLIFICATION NEGATIVE (NEGATIVE)
== END ==
LOC: M LAB REF 16:25
PROVIDERS: ATTEND Physician Assistant Medical
DX: Z11.3 Encounter for screening for infections with a predominantly sexual mode of transmission (principal)

== ENCOUNTER 2021-03-02 12:27 | Emergency (ER) | payer OTHER ==
[~2021-03-02] VITALS: Ht 162.6 cm; Wt 67.7 kg
[2021-03-02 12:27] VITALS: BP 132/69
== END 2021-03-02 14:55 | disposition home or self-care (01) ==
LOC: M ED 12:27
DX: Z13.30 Encounter for screening examination for mental health and behavioral disorders, unspecified (principal); F41.9 Anxiety disorder, unspecified; F19.10 Other psychoactive substance abuse, uncomplicated

== ENCOUNTER 2021-03-09 13:28 | Emergency (ER) | payer OTHER ==
[~2021-03-09] VITALS: Ht 162.6 cm; Wt 63.6 kg
[2021-03-09 15:49] LABS: RSV AMPLIFICATION NEGATIVE (NEGATIVE)
[2021-03-09 19:29] LABS: AMPHETAMINES LEVEL URINE POSITIVE (NEGATIVE); BARBITURATES URINE NEGATIVE (NEGATIVE); BENZODIAZEPINES URINE NEGATIVE (NEGATIVE); CANNABINOIDS URINE POSITIVE (NEGATIVE); COCAINE METABOLITE URINE NEGATIVE (NEGATIVE); METHADONE URINE POSITIVE (NEGATIVE); OPIATES URINE NEGATIVE (NEGATIVE); PHENCYCLIDINE URINE NEGATIVE (NEGATIVE)
[2021-03-09 19:56] LABS: HEMATOCRIT 40.9 % (36.0-47.0); HEMOGLOBIN 13.2 g/dl (12.0-15.5); MEAN CORPUSCULAR HEMOGLOBIN 28.4 pg (27.0-33.0); MEAN CORPUSCULAR HGB CONC 32.3 g/dl (32.0-36.5); MEAN CORPUSCULAR VOLUME 88.1 fl (80.0-96.0); PLATELET COUNT, AUTOMATED 173 10^3/uL (150-450); RED BLOOD COUNT 4.64 10^6/uL (4.00-5.40)
[2021-03-10 01:15] LABS: ACETAMINOPHEN LEVEL < 2.0 UG/ML (10.0-30.0); ALBUMIN 3.9 GM/DL (3.2-5.2); ALT/SGPT 27 U/L (12-78); BILIRUBIN,DIRECT 0.2 MG/DL (0.0-0.2); BILIRUBIN,TOTAL 0.5 MG/DL (0.2-1.0); BLOOD UREA NITROGEN 11 MG/DL (7-18); CALCIUM LEVEL 9.6 MG/DL (8.5-10.1); CARBON DIOXIDE LEVEL 30 MEQ/L (21-32); CHLORIDE LEVEL 109 MEQ/L (98-107); ETHYL ALCOHOL (ETHANOL) < 0.003 % (0.000-0.010); GLOMERULAR FILTRATION RATE > 60.0 (>60); GLUCOSE, FASTING 103 MG/DL (70-100); POTASSIUM SERUM 4.1 MEQ/L (3.5-5.1); SALICYLATE LEVEL 3.7 MG/DL (5.0-30.0); SODIUM LEVEL 144 MEQ/L (136-145); TOTAL PROTEIN 7.3 GM/DL (6.4-8.2)
[2021-03-10 01:20] LABS: HCG, SERUM QUALITATIVE NEGATIVE (NEGATIVE)
[2021-03-10] MEDS ORDERED: MED NOTE (10:07)
[2021-03-10] MEDS ORDERED: HOME MED LIST COMPLETE! XX SCH (10:10)
[2021-03-10] MEDS ORDERED: LORazepam 2 MG TAB PO STA (16:25)
[2021-03-11] MEDS ORDERED: LORazepam 2 MG TAB PO STA (13:18)
--- NOTE | 2021-03-11 20:24 | ECGEPIP ---
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
[2021-03-12 12:03] VITALS: BP 112/61
== END 2021-03-12 12:06 ==
LOC: M ED 13:28
DX: R45.851 Suicidal ideations (principal)

== ENCOUNTER 2021-11-09 13:54 | Emergency (ER) | payer OTHER ==
[~2021-11-09] VITALS: Ht 152.4 cm; Wt 64.5 kg
[~2021-11-09 13:54] MED LIST changes: +MED NOTE; +RISP-9
[2021-11-09 13:55] VITALS: BP 124/78
[2021-11-09 15:41] LABS: URINE PREG TEST POSITIVE (NEGATIVE)
[2021-11-09 15:49] LABS: APPEARANCE, URINE CLEAR (CLEAR); BACTERIA, URINE AUTO NEGATIVE (NEGATIVE); BILIRUBIN, URINE AUTO NEGATIVE (NEGATIVE); BLOOD, URINE BLOOD NEGATIVE (NEGATIVE); COLOR, URINE YELLOW (YELLOW); GLUCOSE, URINE (UA) AUTO NEGATIVE (NEGATIVE); KETONE, URINE AUTO TRACE mg/dL (NEGATIVE); LEUKOCYTE ESTERASE, URINE AUTO NEGATIVE (NEGATIVE); MUCUS, URINE SMALL (NEGATIVE); NITRITE, URINE AUTO NEGATIVE (NEGATIVE); PROTEIN, URINE AUTO NEGATIVE (NEGATIVE); RBC, URINE AUTO 0 /HPF (0-3); SPECIFIC GRAVITY URINE AUTO 1.009 (1.002-1.035); SQUAMOUS EPITHELIAL CELL UR AU 1 /HPF (0-6); UROBILINOGEN, URINE AUTO 0.2 mg/dL (0.0-2.0); WBC, URINE AUTO 0 /HPF (0-3)
[2021-11-09] MEDS ORDERED: MUPI30CR TOP (16:28)
[2021-11-10 12:39] LABS: GC DNA AMPLIFICATION NEGATIVE (NEGATIVE)
== END 2021-11-09 19:55 | disposition home or self-care (01) ==
LOC: M ED 13:54
DX: N39.9 Disorder of urinary system, unspecified (principal); Z32.01 Encounter for pregnancy test, result positive; L66.2 Folliculitis decalvans; F41.9 Anxiety disorder, unspecified; F17.200 Nicotine dependence, unspecified, uncomplicated

== ENCOUNTER 2021-11-15 18:50 | Emergency (ER) | payer OTHER ==
[~2021-11-15] VITALS: Ht 162.6 cm; Wt 71.4 kg
[~2021-11-15 18:50] MED LIST changes: +MUPI30CR TOP
[2021-11-15 18:52] VITALS: BP 138/76
== END 2021-11-15 20:22 | disposition left against medical advice (07) ==
LOC: M ED 18:50
DX: Z53.21 Procedure and treatment not carried out due to patient leaving prior to being seen by health care provider (principal)

== ENCOUNTER → 2021-11-30 | Outpatient (CLI) | payer OTHER ==
[2021-11-30 15:34] LABS: BASO # 0.1 10^3/uL (0.0-0.2); BASO % 0.5 % (0.0-1.0); EOS # 0.1 10^3/uL (0.0-0.5); EOS % 0.7 % (0.0-3.0); HEMATOCRIT 36.7 % (36.0-47.0); LYMPH # 2.2 10^3/uL (1.5-5.0); LYMPH % 19.6 % (24.0-44.0); MEAN CORPUSCULAR HEMOGLOBIN 30.3 pg (27.0-33.0); MEAN CORPUSCULAR HGB CONC 32.7 g/dl (32.0-36.5); MEAN CORPUSCULAR VOLUME 92.7 fl (80.0-96.0); MONO # 0.7 10^3/uL (0.0-0.8); MONO % 6.1 % (2.0-8.0); NEUTROPHILS # 8.1 10^3/uL (1.5-8.5); NEUTROPHILS % 72.7 % (36.0-66.0); PLATELET COUNT, AUTOMATED 298 10^3/uL (150-450); RED BLOOD COUNT 3.96 10^6/uL (4.00-5.40); WHITE BLOOD COUNT 11.1 10^3/uL (4.0-10.0)
[2021-11-30 17:42] LABS: HIV 1&2 SCREEN CENTAUR NEGATIVE (NEGATIVE)
[2021-11-30 18:07] LABS: GC DNA AMPLIFICATION NEGATIVE (NEGATIVE)
== END ==
LOC: M PLALAB 12:15
PROVIDERS: ATTEND Specialist
DX: Z34.81 Encounter for supervision of other normal pregnancy, first trimester (principal); Z3A.10 10 weeks gestation of pregnancy

== ENCOUNTER → 2022-01-03 | Outpatient (CLI) | payer OTHER | LOC: M PLALAB 13:58 | PROVIDERS: ATTEND Specialist | DX: Z36.9 Encounter for antenatal screening, unspecified (principal) ==

== ENCOUNTER → 2022-01-26 | Outpatient (CLI) | payer OTHER | LOC: M WHC 10:06 | PROVIDERS: ATTEND Specialist | DX: Z34.82 Encounter for supervision of other normal pregnancy, second trimester (principal); Z3A.18 18 weeks gestation of pregnancy ==

== ENCOUNTER → 2022-03-01 | Outpatient (REF) | payer OTHER ==
[2022-03-01 21:39] LABS: APPEARANCE, URINE MANUAL CLEAR (CLEAR); COLOR, URINE MANUAL LT YELLOW (YELLOW)
[2022-03-01 21:40] LABS: PH,URINE MAN 6.5 UNITS (5.0 - 7.0)
[2022-03-01 21:41] LABS: BILIRUBIN, URINE MANUAL NEGATIVE (NEGATIVE); BLOOD URINE MANUAL NEGATIVE (NEGATIVE); GLUCOSE, URINE (UA) MANUAL NEGATIVE (NEGATIVE); KETONE, URINE MANUAL NEGATIVE (NEGATIVE); LEUKOCYTE ESTERASE, URINE MAN NEGATIVE (NEGATIVE); NITRITE, URINE MANUAL NEGATIVE (NEGATIVE); PROTEIN, URINE MANUAL NEGATIVE (NEGATIVE); UROBILINOGEN, URINE MANUAL NORMAL (NORMAL)
== END ==
LOC: M LAB REF 21:22
PROVIDERS: ATTEND Physician Assistant Medical
DX: N39.0 Urinary tract infection, site not specified (principal)

== ENCOUNTER → 2022-03-08 | Outpatient (CLI) | payer OTHER | LOC: M WHC 09:01 | PROVIDERS: ATTEND Advanced Practice Midwife | DX: Z34.82 Encounter for supervision of other normal pregnancy, second trimester (principal) ==

== ENCOUNTER → 2022-05-31 | Outpatient (REF) | payer OTHER ==
[2022-05-31 18:42] LABS: RSV AMPLIFICATION NEGATIVE (NEGATIVE)
== END ==
LOC: M LAB REF 16:24
PROVIDERS: ATTEND Physician Assistant
DX: Z20.828 Contact with and (suspected) exposure to other viral communicable diseases (principal); Z11.52 Encounter for screening for COVID-19

== ENCOUNTER → 2022-06-09 | Outpatient (REF) | payer OTHER | LOC: M SFHCWAGY 16:45 | PROVIDERS: ATTEND Obstetrics & Gynecology | DX: Z36.85 Encounter for antenatal screening for Streptococcus B (principal) ==

== ENCOUNTER → 2022-06-13 | Outpatient (CLI) | payer OTHER ==
[2022-06-13 13:46] LABS: HEMATOCRIT 34.7 % (36.0-47.0); HEMOGLOBIN 11.4 g/dl (12.0-15.5); MEAN CORPUSCULAR HEMOGLOBIN 29.8 pg (27.0-33.0); MEAN CORPUSCULAR HGB CONC 32.9 g/dl (32.0-36.5); MEAN CORPUSCULAR VOLUME 90.6 fl (80.0-96.0); PLATELET COUNT, AUTOMATED 321 10^3/uL (150-450); RED BLOOD COUNT 3.83 10^6/uL (4.00-5.40); WHITE BLOOD COUNT 12.8 10^3/uL (4.0-10.0)
== END ==
LOC: M PLALAB 09:38
PROVIDERS: ATTEND Advanced Practice Midwife
DX: Z34.82 Encounter for supervision of other normal pregnancy, second trimester (principal)

== ENCOUNTER 2022-06-17 10:50 | Inpatient (IN) | payer OTHER ==
[2022-06-17] VITALS (30 sets, daily range): BP systolic 105–181; BP diastolic 52–89
[~2022-06-17] VITALS: Ht 162.6 cm; Wt 102.6 kg
[2022-06-17] MEDS ORDERED: PREN1CHW6 PO (11:11)
[2022-06-17] MEDS ORDERED: HOME MED LIST COMPLETE! XX SCH (11:15)
[2022-06-17] MEDS ORDERED: LACTATED RINGER'S 1000 ML IV STA (11:16)
[2022-06-17] MEDS ORDERED: CARBOPROST TROMETHAMINE 250 MCG/ML AMP IM PRN (11:20)
[2022-06-17] MEDS ORDERED: LIDOCAINE 1% MDV 20ML VIAL INFIL PRN (11:20)
[2022-06-17] MEDS ORDERED: OXYTOCIN DRIP 30 UNITS in IV 1 EA IV PRN (11:20)
[2022-06-17] MEDS ORDERED: METHYLERGONOVINE MALEATE 0.2MG/ML 1ML VIAL IM PRN (11:20)
[2022-06-17] MEDS ORDERED: TRANEXAMIC ACID INJection 1,000 MG in NS 100 ML IV PRN (11:20)
[2022-06-17] MEDS ORDERED: miSOPROStol 50MCG 1/2 TABLET PO SCH (11:30)
[2022-06-17] MEDS ORDERED: NICO21DI37 TOP (11:44)
[2022-06-17 12:28] LABS: AMPHETAMINES URINE REFLEX NEGATIVE (NEGATIVE); BARBITURATES URINE REFLEX NEGATIVE (NEGATIVE); BENZODIAZEPINES URINE REFLEX NEGATIVE (NEGATIVE); CANNABINOIDS URINE REFLEX NEGATIVE (NEGATIVE); COCAINE METABOLITE URINE REFLE NEGATIVE (NEGATIVE); METHADONE URINE REFLEX NEGATIVE (NEGATIVE); OPIATES URINE REFLEX NEGATIVE (NEGATIVE); PHENCYCLIDINE URINE REFLEX NEGATIVE (NEGATIVE)
[2022-06-17 12:49] LABS: HEMOGLOBIN 11.6 g/dl (12.0-15.5); MEAN CORPUSCULAR HEMOGLOBIN 29.4 pg (27.0-33.0); MEAN CORPUSCULAR HGB CONC 33.1 g/dl (32.0-36.5); MEAN CORPUSCULAR VOLUME 88.8 fl (80.0-96.0); PLATELET COUNT, AUTOMATED 327 10^3/uL (150-450); RED BLOOD COUNT 3.94 10^6/uL (4.00-5.40); WHITE BLOOD COUNT 16.3 10^3/uL (4.0-10.0)
[2022-06-17] MEDS ORDERED: OXYTOCIN DRIP 30 UNITS in IV 1 EA IV SCH (15:55)
[2022-06-17] MEDS: LR 1,000 ML IV SCH ×3 (16:28→20:52)
[2022-06-17] MEDS: ACETAMINOPHEN 500 MG TAB PO PRN (16:32)
[2022-06-17] MEDS ORDERED: CALCIUM CARBONATE 500 MG CHEW U/D PO PRN (18:05)
[2022-06-17] MEDS ORDERED: NALOXONE INJ 0.4MG/1ML VIAL IV PRN (20:55)
[2022-06-17] MEDS ORDERED: ONDANSETRON 4MG 2ML VIAL IV PRN (20:55)
[2022-06-17] MEDS ORDERED: LR 500 ML IV PRN (20:55)
[2022-06-17] MEDS ORDERED: ePHEDrine SULFATE 25 MG/5 ML(5MG/ML) SYRINGE IVP PRN (20:55)
[2022-06-17] MEDS ORDERED: diphenhydrAMINE 50MG/ML VIAL IV PRN (20:55)
[2022-06-17] MEDS ORDERED: EPIDURAL/PCA KEYS XX PRN (20:55)
[2022-06-17] MEDS: FENTANYL/ROPIVACAINE/NACL BAG 100 ML EPIDURAL SCH (20:59)
[2022-06-18] VITALS (37 sets, daily range): BP systolic 95–146; BP diastolic 50–95
[2022-06-18] MEDS: LR 1,000 ML IV SCH ×4 (04:32→23:55)
[2022-06-18] MEDS: FENTANYL/ROPIVACAINE/NACL BAG 100 ML EPIDURAL SCH ×2 (05:30→13:57)
[2022-06-18] MEDS ORDERED: ceFAZolin SOD 2 GM in IV 1 EA IV ONE (15:15)
[2022-06-18] MEDS ORDERED: BICITRA 30ML SOLN UDC PO ONE (15:15)
[2022-06-18] MEDS ORDERED: LIDOCAINE 2% W/EPINEPHRINE 20ML VIAL **PRES FREE As Ordered ONE (15:30)
[2022-06-18] MEDS ORDERED: OXYTOCIN 30UNITS IN 0.9% NaCl 500ML IV BAG As Ordered ONE ×2 (15:32→16:40)
[2022-06-18] MEDS ORDERED: ONDANSETRON 4MG 2ML VIAL As Ordered ONE (15:50)
[2022-06-18] MEDS ORDERED: KETOROLAC 60MG 2ML VIAL As Ordered ONE (15:51)
[2022-06-18] MEDS ORDERED: ACETAMINOPHEN 1000MG 100ML IV BAG As Ordered ONE (15:52)
[2022-06-18] MEDS ORDERED: MORPHINE PRES-FREE INJ 10 MG/10 ML VIAL As Ordered ONE (15:55)
[2022-06-18 16:07] LABS: CORD GAS ABE A -4.7; CORD GAS HCO3 A 22.1 MEQ/L; CORD GAS O2 SAT A 59.4 %; CORD GAS PCO2 A 46.9 mmHg; CORD GAS PH A 7.291 UNITS; CORD GAS PO2 A 25.1 mmHg; CORD GAS SBC A 19.7 MEQ/L; CORD GAS TCO2 A 23.5 MEQ/L
[2022-06-18 16:10] LABS: CORD GAS ABE V -4.5; CORD GAS HCO3 V 20.6 MEQ/L; CORD GAS O2 SAT V 72.3 %; CORD GAS PCO2 V 38.5 mmHg; CORD GAS PH V 7.346 UNITS; CORD GAS PO2 V 29.1 mmHg; CORD GAS SBC V 20.1 MEQ/L; CORD GAS TCO2 V 21.8 MEQ/L
[2022-06-18] MEDS ORDERED: ONDANSETRON 4MG 2ML VIAL IV PRN (16:25)
[2022-06-18] MEDS ORDERED: diphenhydrAMINE 50MG/ML VIAL IV PRN (16:25)
[2022-06-18] MEDS ORDERED: **NOTE PATIENT COMMENT** MISC XX SCH (16:25)
[2022-06-18] MEDS ORDERED: LR 1,000 ML IV SCH (16:25)
[2022-06-18] MEDS ORDERED: METOCLOPRAMIDE INJ 10MG/2ML VIAL IV PRN (16:25)
[2022-06-18] MEDS ORDERED: fentaNYL 100 MCG/2 ML INJECTION IV PRN (16:25)
[2022-06-18] MEDS ORDERED: NALOXONE INJ 0.4MG/1ML VIAL IV PRN ×2 (16:25)
[2022-06-18] MEDS ORDERED: oxyCODONE 5MG TAB PO PRN (16:25)
[2022-06-18] MEDS: SLF 3 ML SYR IV SCH (16:25)
[2022-06-18] MEDS ORDERED: SIMETHICONE 80MG CHEW TAB PO PRN (16:40)
[2022-06-18] MEDS ORDERED: PERCOCET 5MG/325MG TAB PO PRN ×2 (16:40)
[2022-06-18] MEDS ORDERED: OXYTOCIN DRIP 30 UNITS in IV 1 EA IV SCH (16:40)
[2022-06-18] MEDS ORDERED: DOCUSATE SODIUM 100MG CAPSULE PO PRN (16:40)
[2022-06-18] MEDS ORDERED: RHOGAM 300MCG (1500IU) INJ IM SCH (16:40)
[2022-06-18] MEDS: KETOROLAC 30 MG/ML 1ML VIAL IV SCH (22:10)
[2022-06-19] MEDS: SLF 3 ML SYR IV SCH ×2 (00:25→09:46)
[2022-06-19] MEDS: LR 1,000 ML IV SCH ×6 (00:40→23:55)
[2022-06-19 02:00] VITALS: BP 106/59
[2022-06-19] MEDS: KETOROLAC 30 MG/ML 1ML VIAL IV SCH ×2 (04:18→09:45)
[2022-06-19 06:00] VITALS: BP 97/60
[2022-06-19 06:42] LABS: HEMATOCRIT 28.1 % (36.0-47.0); MEAN CORPUSCULAR HEMOGLOBIN 29.4 pg (27.0-33.0); MEAN CORPUSCULAR HGB CONC 32.7 g/dl (32.0-36.5); MEAN CORPUSCULAR VOLUME 89.8 fl (80.0-96.0); PLATELET COUNT, AUTOMATED 256 10^3/uL (150-450); RED BLOOD COUNT 3.13 10^6/uL (4.00-5.40); WHITE BLOOD COUNT 18.5 10^3/uL (4.0-10.0)
[2022-06-19 06:44] LABS: HEMOGLOBIN 9.2 g/dl (12.0-15.5)
[2022-06-19] MEDS: PRENATAL VITAMINS CHEWABLE TABLET PO SCH (09:45)
[2022-06-19 10:00] VITALS: BP 107/62
[2022-06-19] MEDS: ACETAMINOPHEN 500 MG TAB PO PRN (16:17)
[2022-06-19] MEDS: NICOTINE 14 MG/24 HR TRANSDERMAL TD SCH (16:22)
[2022-06-19] MEDS: IBUPROFEN 800 MG TAB PO SCH (17:44)
[2022-06-19 18:00] VITALS: BP 106/57
[2022-06-19 22:00] VITALS: BP 122/60
[2022-06-20] MEDS: LR 1,000 ML IV SCH (00:40)
[2022-06-20 02:00] VITALS: BP 102/54
[2022-06-20] MEDS: IBUPROFEN 800 MG TAB PO SCH ×2 (02:12→10:03)
[2022-06-20] MEDS ORDERED: IBUP80TA PO (07:09)
[2022-06-20] MEDS ORDERED: OXYC1TAB23 PO (07:09)
[2022-06-20] MEDS ORDERED: MEASLES,MUMPS,RUBELLA VACCINE INJ (MMR-II) SC.IMMUN ONE (09:00)
[2022-06-20] MEDS: PRENATAL VITAMINS CHEWABLE TABLET PO SCH (10:02)
[2022-06-20] MEDS: NICOTINE 14 MG/24 HR TRANSDERMAL TD SCH (10:04)
[2022-06-20] MEDS ORDERED: MOM 30ML SUSPENSION UDC PO PRN (12:05)
[2022-06-20] MEDS ORDERED: MIRALAX *UNIT DOSE* 17GM PACKET PO PRN (12:05)
[2022-06-20] MEDS ORDERED: COLA100C5 PO (12:07)
== END 2022-06-20 13:05 | disposition home or self-care (01) | DRG 540 ==
LOC: M LDI 10:50 → M OBS 06-18 18:10
PROVIDERS: ADMIT Advanced Practice Midwife; ATTEND Advanced Practice Midwife
PROC: 3E0234Z Introduction of Serum, Toxoid and Vaccine into Muscle, Percutaneous Approach (ICD-10-PCS; 2022-06-17)
PROC: 10907ZC Drainage of Amniotic Fluid, Therapeutic from Products of Conception, Via Natural or Artificial Opening (ICD-10-PCS; 2022-06-17)
PROC: 0UB70ZZ Excision of Bilateral Fallopian Tubes, Open Approach (ICD-10-PCS; 2022-06-18)
PROC: 10D00Z1 Extraction of Products of Conception, Low, Open Approach (ICD-10-PCS; principal; 2022-06-18 15:55)
DX: O99.324 Drug use complicating childbirth (principal); F17.200 Nicotine dependence, unspecified, uncomplicated; Z37.0 Single live birth; Z3A.39 39 weeks gestation of pregnancy; O99.334 Smoking (tobacco) complicating childbirth; F12.90 Cannabis use, unspecified, uncomplicated; O62.0 Primary inadequate contractions

== ENCOUNTER → 2023-04-27 | Outpatient (REF) | payer OTHER, MEDICAID ==
[~2023-04-27] MED LIST changes: +IBUP80TA PO; +NICO21DI37 TOP; +OXYC1TAB23 PO; +PREN1CHW6 PO
== END ==
LOC: M LAB REF 16:24
PROVIDERS: ATTEND Nurse Practitioner Family
DX: R39.9 Unspecified symptoms and signs involving the genitourinary system (principal)

== ENCOUNTER → 2023-05-04 | Outpatient (CLI) | payer MEDICAID, OTHER ==
[2023-05-04 16:07] LABS: BASO # 0.1 10^3/uL (0.0-0.2); BASO % 0.6 % (0.0-1.0); EOS # 0.3 10^3/uL (0.0-0.5); EOS % 3.1 % (0.0-3.0); HEMATOCRIT 37.2 % (36.0-47.0); HEMOGLOBIN 12.1 g/dl (12.0-15.5); LYMPH # 3.6 10^3/uL (1.5-5.0); LYMPH % 37.8 % (24.0-44.0); MEAN CORPUSCULAR HEMOGLOBIN 27.8 pg (27.0-33.0); MEAN CORPUSCULAR HGB CONC 32.5 g/dl (32.0-36.5); MEAN CORPUSCULAR VOLUME 85.5 fl (80.0-96.0); MONO % 10.1 % (2.0-8.0); NEUTROPHILS # 4.5 10^3/uL (1.5-8.5); PLATELET COUNT, AUTOMATED 308 10^3/uL (150-450); RED BLOOD COUNT 4.35 10^6/uL (4.00-5.40); WHITE BLOOD COUNT 9.4 10^3/uL (4.0-10.0)
[2023-05-04 16:38] LABS: ALBUMIN 3.3 G/DL (3.2-5.2); ALKALINE PHOSPHATASE 94 U/L (46-116); ALT/SGPT 51 U/L (7.0-40); AST/SGOT 22 U/L (<34); BILIRUBIN,TOTAL 0.2 MG/DL (0.3-1.2); BLOOD UREA NITROGEN 10 MG/DL (9-23); CALCIUM LEVEL 9.1 MG/DL (8.5-10.1); CARBON DIOXIDE LEVEL 27 MMOL/L (20-31); CHLORIDE LEVEL 108 MMOL/L (98-107); CHOLESTEROL LEVEL 207 MG/DL (<200); CREATININE FOR GFR 0.57 MG/DL (0.55-1.30); GLOMERULAR FILTRATION RATE > 60.0 (>60); GLUCOSE, FASTING 77 MG/DL (60-100); HDL CHOLESTEROL 34.5 MG/DL (>40); LDL CHOLESTEROL 101.7 MG/DL (<100); MAGNESIUM LEVEL 1.8 MG/DL (1.8-2.4); NON-HDL-C 172.5 MG/DL; POTASSIUM SERUM 4.7 MMOL/L (3.5-5.1); SODIUM LEVEL 136 MMOL/L (136-145); THYROID STIMULATING HORMONE 4.832 uIU/ML (0.55-4.78); TOTAL PROTEIN 6.6 G/DL (5.7-8.2); TRIGLYCERIDES LEVEL 354 MG/DL (<150)
[2023-05-04 16:39] LABS: TOTAL 25(OH) VITAMIN D 11.9 NG/ML (20.0-100.0)
[2023-05-04 16:50] LABS: HEMOGLOBIN A1c 5.9 % (4.0-6.0)
== END ==
LOC: M PLALAB 12:14
PROVIDERS: ATTEND Nurse Practitioner Family
DX: E66.01 Morbid (severe) obesity due to excess calories (principal); Z11.3 Encounter for screening for infections with a predominantly sexual mode of transmission

== ENCOUNTER → 2023-08-14 | Outpatient (CLI) | payer MEDICAID ==
[~2023-08-14] MED LIST changes: +RISP-106; -RISP-9
[2023-08-14 18:11] LABS: ALBUMIN 3.4 G/DL (3.2-5.2); ALKALINE PHOSPHATASE 95 U/L (46-116); ALT/SGPT 90 U/L (7.0-40); AST/SGOT 62 U/L (<34); BILIRUBIN,TOTAL < 0.2 MG/DL (0.3-1.2); BLOOD UREA NITROGEN 14 MG/DL (9-23); CALCIUM LEVEL 8.7 MG/DL (8.5-10.1); CARBON DIOXIDE LEVEL 21 MMOL/L (20-31); CHLORIDE LEVEL 110 MMOL/L (98-107); CHOLESTEROL LEVEL 245 MG/DL (<200); CHOLESTEROL RISK RATIO 6.36 (<5); FREE T4 0.81 NG/DL (0.89-1.76); GLOMERULAR FILTRATION RATE > 60.0 (>60); GLUCOSE, FASTING 98 MG/DL (60-100); HDL CHOLESTEROL 38.5 MG/DL (>40); LDL CHOLESTEROL 145.5 MG/DL (<100); NON-HDL-C 206.5 MG/DL; POTASSIUM SERUM 5.1 MMOL/L (3.5-5.1); SODIUM LEVEL 137 MMOL/L (136-145); TOTAL PROTEIN 6.7 G/DL (5.7-8.2); TRIGLYCERIDES LEVEL 305 MG/DL (<150)
[2023-08-14 18:12] LABS: THYROID STIMULATING HORMONE 3.615 uIU/ML (0.55-4.78)
== END ==
LOC: M PLALAB 14:32
PROVIDERS: ATTEND Nurse Practitioner Family
DX: E78.5 Hyperlipidemia, unspecified (principal); R94.6 Abnormal results of thyroid function studies

== ENCOUNTER → 2024-01-16 | Outpatient (REF) | payer OTHER | LOC: M LAB REF 20:21 | PROVIDERS: ATTEND Physician Assistant | DX: R10.30 Lower abdominal pain, unspecified (principal); N76.0 Acute vaginitis ==

== ENCOUNTER 2024-10-24 20:43 | Emergency (ER) | payer OTHER ==
[~2024-10-24] VITALS: Ht 162.6 cm; Wt 110.0 kg
[2024-10-24 20:48] VITALS: BP 146/90; TEMP 97.5; O2SAT 99
== END 2024-10-25 03:10 | disposition left against medical advice (07) ==
LOC: M ED 20:43
DX: Z53.21 Procedure and treatment not carried out due to patient leaving prior to being seen by health care provider (principal)

== ENCOUNTER → 2025-03-27 | Outpatient (REF) | payer OTHER | LOC: M LAB REF 12:09 | PROVIDERS: ATTEND Student in an Organized Health Care Education/Training Program | DX: R30.0 Dysuria (principal) ==